=== PATIENT | male | born 1940 | race Caucasian/White ===

== ENCOUNTER → 2021-03-09 | Outpatient (CLI) | payer MEDICARE ==
--- NOTE | 2021-03-09 12:17 | CT ---
EXAMINATION TYPE: CT abdomen pelvis wo con DATE OF EXAM: 03/09/2021 COMPARISON: None HISTORY: 80-year-old male R31.0, episodes of gross hematuria CT DLP: 437.1 mGycm. Automated exposure control for dose reduction was used. TECHNIQUE: Contiguous axial scanning of the abdomen and pelvis without IV contrast. Coronal and sagit nini reconstructions performed. FINDINGS: Heart normal size without pericardial effusion. Ectatic lower descending thoracic aorta 2.9 cm with m ild atherosclerotic calcifications. Lung bases clear without pleural effusion. Noncontrast appearance of the liver, gallbladder, adrenal glands, spleen, and atrophic pancreas show no gross abnormality. Moderate atherosclerotic calcifications abdominal aorta and common iliac arteries without aneurysm. Round hypodense lesions involving the right kidney, 2.8 cm upper pole, 5.2 cm posterior mid pole, and likely lower pole parapelvic measuring 4.3 cm. Subtle 1.8 x 0.7 cm cortical hypodensity lateral mid pole with some associated calcification could re present a hemorrhagic cyst. Also, 1.7 cm Contour lobulation lateral mid to lower pole, axial image 43. No hydronephrosis. Left kidney surgically absent. No abnormal soft tissue within the left nephrectomy bed. No dilated small bowel, free fluid, or free air. A few scattered borderline sized mesenteric lymph nodes measuring up to 7 mm, for example, axial imag e 53. Normal appendix. Mild to moderate stool burden. No pericolonic inflammatory change. Patulous left inguinal canal. Bladder partially distended. Prostate gland enlargement 5.6 cm wide. There is some eccentric soft tissue impressing into the left side of the bladder base measuring 3.3 cm. Multiple pelvic phlebolith. No abnormal fluid collection i n the pelvis or pelvic lymphadenopathy. Bones: Mild degenerative change at the hips. Degenerative bony bridging right SI joint. Moderate to advanced degenerative disc disease L3-S1 levels with hypertrophic facet arthropathy. IMPRESSION: 1. Prostatomegaly (5.6 cm wide) but with some eccentric soft tissue measuring 3.3 cm impressing into the left side of the bladder base. Findings may reflect BPH. Correlate with PSA values and urine cyt ology to exclude the possibility of prostate cancer or a urothelial lesion. 2. Round low density lesions within the right kidney measuring up to 5.2 cm speculated represent cys ts. 3 such lesions are present. A benign cystic etiology can be confirmed with renal ultrasound. No h ydronephrosis. 3. Status post left nephrectomy.
== END | disposition home or self-care (01) ==
LOC: RADCTMAIN 10:41
PROVIDERS: ATTEND Urology
DX: N28.89 Other specified disorders of kidney and ureter (principal); N40.0 Benign prostatic hyperplasia without lower urinary tract symptoms; Z90.5 Acquired absence of kidney
CPT/HCPCS: 74176

== ENCOUNTER 2021-04-02 22:44 | Emergency (ER) | payer MEDICARE ==
[2021-04-02 23:25] VITALS: RESP 22
[2021-04-03 00:01] LABS: Appearance,Urine Cloudy (Clear); Bacteria,Urine Rare /hpf; Bilirubin,Urine Negative (Negative); Blood,Urine Large (Negative); Color,Urine Yellow; Glucose,Urine (UA) Negative (Negative); Hyaline Casts,Urine 1 /lpf (0-2); Ketones,Urine Negative (Negative); Leukocyte Esterase,Urine Moderate (Negative); Mucus,Urine Rare /hpf; Nitrite,Urine Negative (Negative); PH, Urine 5.5 (5.0-8.0); Protein,Urine 2+ (Negative); RBC,Urine >182 /hpf (0-5); Specific Gravity,Urine 1.014 (1.001-1.035); Urobilinogen,Urine <2.0 mg/dL (<2.0); WBC,Urine 21 /hpf (0-5)
--- NOTE | 2021-04-03 00:37 | ED ---
Male Urogenital HPI - General Chief complaint: Urogenital Stated complaint: Post-op catheter issues Time Seen by Provider: 04/02/21 23:29 Source: patient Mode of arrival: ambulatory Limitations: no limitations - History of Present Illness Initial comments: 80-year-old male patient presents to the emergency department for evaluation of urinary retention. Patient had tumors removed from his bladder on Friday. Had indwelling Salinas catheter which his urologist removed this morning. Patient states he was urinating throughout the day but the amount was becoming less and lasts until he was unable to urinate at all. Patient states he is now having significant discomfort to the suprapubic region. He is unable to urinate at all. States he did notice some hematuria today which has been present since the procedure. He denies use of blood thinning medications. Denies dizziness or weakness. Denies any fever or chills. States he had been constipated but did have 2 good bowel movements today. - Related Data Allergies Allergy/AdvReac Type Severity Reaction Status Date / Time No Known Allergies Allergy Verified 04/02/21 23:21 Review of Systems ROS Statement: Those systems with pertinent positive or pertinent negative responses have been documented in the HPI. ROS Other: All systems not noted in ROS Statement are negative. Past Medical History Past Medical History: Diabetes Mellitus History of Any Multi-Drug Resistant Organisms: None Reported Past Surgical History: No Surgical Hx Reported Additional Past Surgical History / Comment(s): tumors removed from bladder Past Psychological History: Anxiety Smoking Status: Current every day smoker Past Alcohol Use History: None Reported Past Drug Use History: None Reported General Exam Limitations: no limitations General appearance: alert, in no apparent distress, other (This is a well- developed, well-nourished adult male in no acute distress.) ENT exam: Present: normal exam, normal oropharynx, mucous membranes moist Respiratory exam: Present: normal lung sounds bilaterally. Absent: respiratory distress, wheezes, rales, rhonchi, stridor Cardiovascular Exam: Present: regular rate, normal rhythm, normal heart sounds. Absent: systolic murmur, diastolic murmur, rubs, gallop, clicks GI/Abdominal exam: Present: soft, tenderness (suprapubic), normal bowel sounds. Absent: distended, guarding, rebound, rigid Neurological exam: Present: alert, oriented X3, CN II-XII intact Psychiatric exam: Present: normal affect, normal mood Skin exam: Present: warm, dry, intact, normal color. Absent: rash Course Vital Signs 04/02/21 04/03/21 04/03/21 23:22 00:25 00:55 Temperature 98.2 F 98 F 98.3 F Pulse Rate 77 83 87 Respiratory Rate Blood Pressure 186/104 147/79 147/79 O2 Sat by Pulse 98 97 97 Oximetry Medical Decision Making - Medical Decision Making 80-year-old male patient presented for urinary retention after having Salinas catheter removed this morning. Physical examination did reveal suprapubic tenderness. Remainder is unremarkable. Salinas catheter was inserted by nursing staff. She did have 400 mL of clear red urine. Patient had immediate relief of discomfort. Abdomen within soft and nontender. There are no blood clots pass into the Salinas bag. Urinalysis did show presence of blood, no obvious infection. This a be sent for culture. He'll be discharged with the Salinas in place to follow-up with Dr. Morales as soon as possible. He is instructed to call in the morning for instructions. He does have an appointment on the for results of his biopsy. Return parameters are discussed in detail. He verbalizes understanding and is discharged in stable condition. My attending is Dr. Brooks. - Lab Data Lab Results 04/02/21 Range/Units 23:43 Urine Color Yellow Urine Appearance Cloudy (Clear) Urine pH 5.5 (5.0-8.0) Ur Specific [place] 1.014 (1.001-1.035) Urine Protein 2+ H (Negative) Urine Glucose (UA) Negative (Negative) Urine Ketones Negative (Negative) Urine Blood Large H (Negative) Urine Nitrite Negative (Negative) Urine Bilirubin Negative (Negative) Urine Urobilinogen <2.0 (<2.0) mg/dL Ur Leukocyte Esterase Moderate H (Negative) Urine RBC >182 H (0-5) /hpf Urine WBC 21 H (0-5) /hpf Urine Bacteria Rare H (None) /hpf Hyaline Casts 1 (0-2) /lpf Urine Mucus Rare H (None) /hpf Disposition Clinical Impression: Urinary retention Disposition: HOME SELF-CARE Condition: Good Instructions (If sedation given, give patient instructions): Urinary Retention in Men (ED), Salinas Catheter Placement and Care (ED) Additional Instructions: Increase fluids. Follow-up with Dr. Morales as soon as possible. Return to the emergency department for any new, worsening, or concerning symptoms. Is patient prescribed a controlled substance at d/c from ED?: No Referrals: Mikhail Carter MD [Primary Care Provider] - 1-2 days Time of Disposition: 00:37
[2021-04-03 01:43] VITALS: BP 147/79; PULSE 87; TEMP 98.3
== END 2021-04-03 00:56 | disposition home or self-care (01) ==
LOC: EC 22:44
DX: R33.9 Retention of urine, unspecified (principal); E11.9 Type 2 diabetes mellitus without complications; F17.200 Nicotine dependence, unspecified, uncomplicated
CPT/HCPCS: 81001; 87086

== ENCOUNTER 2021-06-13 12:52 | Inpatient (IN) | payer MEDICARE ==
[2021-06-13 14:24] LABS: Basophils % (A) 1 %; Eosinophils # (A) 0.1 k/uL (0-0.7); Eosinophils % (A) 2 %; HCT 44.6 % (39.0-53.0); HGB 14.8 gm/dL (13.0-17.5); Lymphocytes # (A) 1.3 k/uL (1.0-4.8); Lymphocytes % (A) 21 %; MCH 31.8 pg (25.0-35.0); MCHC 33.1 g/dL (31.0-37.0); MCV 96.2 fL (80.0-100.0); Mean Platelet Volume 7.1; Monocytes # (A) 0.2 k/uL (0-1.0); Monocytes % (A) 4 %; Neutrophils # (A) 4.4 k/uL (1.3-7.7); Neutrophils % (A) 72 %; Platelet Count 267 k/uL (150-450); RBC 4.64 m/uL (4.30-5.90); RDW 12.8 % (11.5-15.5); WBC 6.1 k/uL (3.8-10.6)
[2021-06-13 14:34] LABS: Albumin 4.8 g/dL (3.5-5.0); Calcium 9.9 mg/dL (8.4-10.2); Total Protein 8.3 g/dL (6.3-8.2)
[2021-06-13] MEDS ORDERED: SODIUM BICARB 8.4% 50 ML SYR (1 MEQ/ML) IV ONE (14:49)
[2021-06-13] MEDS ORDERED: DEXTROSE 50% SYRINGE 50 ML IVP ONE (14:49)
[2021-06-13] MEDS ORDERED: SODIUM CHLORIDE 0.9% 1,000 ML IV STA (14:49)
[2021-06-13] MEDS ORDERED: ALBUTEROL NEB (CONC) 2.5 MG/0.5 ML INHALATION ONE (14:49)
[2021-06-13] MEDS ORDERED: INSULIN REGULAR 100 UNIT/ML VIAL (IV) IV ONE (14:49)
[2021-06-13] MEDS ORDERED: CALCIUM GLUCONATE IN NACL 1 GM in SALINE 1 100ML.BAG IVPB ONE (15:00)
--- NOTE | 2021-06-13 15:12 | ED ---
General Adult HPI - General Chief complaint: Recheck/Abnormal Lab/Rx Stated complaint: abn labs Time Seen by Provider: 06/13/21 14:49 Source: patient, RN notes reviewed Mode of arrival: ambulatory Limitations: no limitations - History of Present Illness Initial comments: Patient is a pleasant 80-year-old male presenting to the emergency department with concerns for high potassium level. Patient had blood work done yesterday. Patient received a call this morning at 11 stating that potassium level was high. Patient does not have history of similar symptoms. Superior patient does have bladder cancer. Patient otherwise feels fine. No palpitations. No muscle problems. - Related Data Allergies Allergy/AdvReac Type Severity Reaction Status Date / Time bee venom protein (honey bee) Allergy Anaphylaxis Verified 06/13/21 13:15 Review of Systems ROS Statement: Those systems with pertinent positive or pertinent negative responses have been documented in the HPI. ROS Other: All systems not noted in ROS Statement are negative. Constitutional: Denies: fever Eyes: Denies: eye pain ENT: Denies: ear pain Respiratory: Denies: cough Cardiovascular: Denies: chest pain Endocrine: Denies: fatigue Gastrointestinal: Denies: abdominal pain Genitourinary: Reports: hematuria (Occasional) Musculoskeletal: Denies: back pain Skin: Denies: rash Neurological: Denies: weakness Past Medical History Past Medical History: Diabetes Mellitus Additional Past Medical History / Comment(s): stress test done one month ago History of Any Multi-Drug Resistant Organisms: None Reported Past Surgical History: No Surgical Hx Reported Additional Past Surgical History / Comment(s): tumors removed from bladder Past Psychological History: Anxiety Smoking Status: Former smoker Past Alcohol Use History: None Reported Past Drug Use History: None Reported General Exam Limitations: no limitations General appearance: alert, in no apparent distress Head exam: Present: normocephalic Eye exam: Present: normal appearance Neck exam: Present: normal inspection Respiratory exam: Present: normal lung sounds bilaterally Cardiovascular Exam: Present: regular rate, normal rhythm GI/Abdominal exam: Present: soft. Absent: tenderness Extremities exam: Present: normal inspection. Absent: pedal edema, calf ten derness Neurological exam: Present: alert Psychiatric exam: Present: normal affect, normal mood Skin exam: Present: normal color Course Vital Signs 06/13/21 13:07 Temperature 98 F Pulse Rate 71 Respiratory 18 Rate Blood Pressure 152/87 O2 Sat by Pulse 98 Oximetry EKG Findings - EKG Comments: EKG Findings:: Sinus rhythm with rate of 68. RI 167. QRS 88. QT 355. QTC 372. Left axis. Poor R-wave progression. Inferior Q waves. No acute ST change. Medical Decision Making - Medical Decision Making Patient updated and aware plan. Case discussed with Dr. Hardy who will admit his patient with consult with nephrology and oncology. - Lab Data Result diagrams: 06/13/21 13:21 06/13/21 13:21 Lab Results 06/13/21 06/13/21 06/13/21 Range/Units 13:21 13:21 13:21 WBC 6.1 (3.8-10.6) k/uL RBC 4.64 (4.30-5.90) m/uL Hgb 14.8 (13.0-17.5) gm/dL Hct 44.6 (39.0-53.0) % MCV 96.2 (80.0-100.0) fL MCH 31.8 (25.0-35.0) pg MCHC 33.1 (31.0-37.0) g/dL RDW 12.8 (11.5-15.5) % Plt Count 267 (150-450) k/uL MPV 7.1 Neutrophils % 72 % Lymphocytes % 21 % Monocytes % 4 % Eosinophils % 2 % Basophils % 1 % Neutrophils # 4.4 (1.3-7.7) k/uL Lymphocytes # 1.3 (1.0-4.8) k/uL Monocytes # 0.2 (0-1.0) k/uL Eosinophils # 0.1 (0-0.7) k/uL Basophils # 0.0 (0-0.2) k/uL Sodium 134 L (137-145) mmol/L Potassium 7.0 H* (3.5-5.1) mmol/L Chloride 103 (98-107) mmol/L Carbon Dioxide 22 (22-30) mmol/L Anion Gap 9 mmol/L BUN 47 H (9-20) mg/dL Creatinine 2.79 H (0.66-1.25) mg/dL Est GFR (CKD-EPI)AfAm 24 (>60 ml/min/1.73 sqM) Est GFR (CKD-EPI)NonAf 21 (>60 ml/min/1.73 sqM) Glucose 137 H (74-99) mg/dL Calcium 9.9 (8.4-10.2) mg/dL Total Bilirubin 1.0 (0.2-1.3) mg/dL AST 29 (17-59) U/L ALT 20 (4-49) U/L Alkaline Phosphatase 66 (38-126) U/L Troponin I <0.012 (0.000-0.034) ng/mL Total Protein 8.3 H (6.3-8.2) g/dL Albumin 4.8 (3.5-5.0) g/dL - Radiology Data Radiology results: image reviewed (No acute process) Critical Care Time Critical Care Time: Yes Total Critical Care Time: 31 Disposition Clinical Impression: Hyperkalemia Disposition: ADMITTED IP TO THIS HOSP Is patient prescribed a controlled substance at d/c from ED?: No Referrals: Mikhail Carter MD [Primary Care Provider] - 1-2 days Decision Time: 15:35
[2021-06-13] MEDS: SODIUM POLYSTYRENE SULFONATE 15 GM/60 ML BOTTLE PO SCH (15:22)
--- NOTE | 2021-06-13 15:24 | XR ---
EXAMINATION TYPE: XR chest 1V portable DATE OF EXAM: 06/13/2021 COMPARISON: Chest x-ray May 01, 2012 HISTORY: Chest pain. TECHNIQUE: Single frontal view of the chest is obtained. FINDINGS: There is no suspicious focal air space opacity, pleural effusion, or pneumothorax seen. T he cardiac silhouette size remains within normal limits. The osseous structures are intact. Overlyi ng EKG leads current study incidentally noted. IMPRESSION: No acute process. No significant change from prior.
[2021-06-13] MEDS ORDERED: NALOXONE 0.4 MG/ML 1 ML VIAL IV PRN (15:35)
[2021-06-13] MEDS ORDERED: DEXTROSE 50% SYRINGE 50 ML IVP STA (16:30)
[2021-06-13 16:32] LABS: Glucose,Whole Blood 47 mg/dL (75-99)
[2021-06-13 16:32] LABS: Glucose,Whole Blood 46 mg/dL (75-99)
[2021-06-13 17:05] LABS: Glucose,Whole Blood 129 mg/dL (75-99)
[2021-06-13 22:02] LABS: Calcium 9.3 mg/dL (8.4-10.2); Potassium 5.1 mmol/L (3.5-5.1)
[2021-06-14] MEDS: SODIUM POLYSTYRENE SULFONATE 15 GM/60 ML BOTTLE PO SCH ×3 (04:10→12:58)
[2021-06-14 06:00] LABS: Glucose,Whole Blood 116 mg/dL (75-99)
[2021-06-14 10:44] VITALS: BMI 27.6
[2021-06-14 11:35] LABS: Appearance,Urine Clear (Clear); Bilirubin,Urine Negative (Negative); Blood,Urine Trace (Negative); Color,Urine Light Yellow; Glucose,Urine (UA) Negative (Negative); Hyaline Casts,Urine 1 /lpf (0-2); Ketones,Urine Negative (Negative); Leukocyte Esterase,Urine Moderate (Negative); Mucus,Urine Rare /hpf; Nitrite,Urine Negative (Negative); PH, Urine 6.5 (5.0-8.0); Protein,Urine Trace (Negative); RBC,Urine 9 /hpf (0-5); Specific Gravity,Urine 1.011 (1.001-1.035); Urobilinogen,Urine <2.0 mg/dL (<2.0); WBC,Urine 39 /hpf (0-5)
[2021-06-14 12:06] LABS: Glucose,Whole Blood 100 mg/dL (75-99)
--- NOTE | 2021-06-14 12:30 | P.NPCON ---
History of Present Illness - Reason for Consult acute renal failure - History of Present Illness Patient is a 80-year-old male with the history of type 2 diabetes, bladder cancer status post surgery in March as well as April by Dr. Morales. Patient was admitted to the hospital due to high potassium levels noted on blood work done as outpatient at primary care physician's office. Serum potassium was 7 at the time of admission. This has been treated and serum potassium is down to 5.1 today. Patient's recent bladder surgery was last month. He did state that he had no major difficulty in asking urine. There is no history of use of NSAIDs Patient was noted to have unilateral kidney on the right side with absent left kidney on a CAT scan done in February. There is no prior history of nephrectomy and patient was not aware that he had only one kidney No history of hypotension Patient admitted to increased intake of potatoes due to sore mouth from gum disease. No active GI bleed per history. Blood sugar was not elevated No CHERIE inhibitor's or angiotensin receptor blockers on board. Review of Systems As per HPI, other systems negative Past Medical History Past Medical History: Cancer, Diabetes Mellitus Additional Past Medical History / Comment(s): stress test done one month ago, bladder cancer diagnosed 02/2021 History of Any Multi-Drug Resistant Organisms: None Reported Past Surgical History: No Surgical Hx Reported Additional Past Surgical History / Comment(s): tumors removed from bladder Past Psychological History: Anxiety Smoking Status: Former smoker Past Alcohol Use History: None Reported Past Drug Use History: None Reported Medications and Allergies Home Medications Medication Instructions Recorded Confirmed Type ALPRAZolam [Xanax] 0.5 mg PO BID PRN 06/13/21 06/13/21 History Tamsulosin [Flomax] 0.4 mg PO DAILY 06/13/21 06/13/21 History glipiZIDE [Glucotrol] 5 mg PO DAILY 06/13/21 06/13/21 History Allergies Allergy/AdvReac Type Severity Reaction Status Date / Time bee venom protein (honey bee) Allergy Anaphylaxis Verified 06/13/21 16:03 Physical Exam Vitals: Vital Signs Temp Pulse Pulse Resp BP BP Pulse Ox 06/14/21 11:00 59 L 16 152/83 97 06/14/21 08:10 98.2 F 68 16 161/82 98 06/14/21 06:03 153/74 06/14/21 05:10 98.1 F 63 16 178/84 97 06/14/21 03:24 62 18 166/88 97 06/13/21 22:00 98.2 F 62 14 168/129 95 06/13/21 18:59 78 18 125/89 98 06/13/21 18:00 75 146/103 95 06/13/21 17:00 183/90 87 L 06/13/21 16:20 70 06/13/21 16:00 63 142/106 95 06/13/21 15:56 64 06/13/21 15:11 67 06/13/21 13:07 98 F 71 18 152/87 98 Intake and Output 06/13/21 06/14/21 06/14/21 22:59 06:59 14:59 Intake Total 118 Output Total 200 Balance -82 Intake: Oral 118 Output: Urine 100 Post Void Residual 100 Other: # Voids 1 Weight 84.822 kg 84.822 kg Patient is awake, comfortable, not in any acute distress Examination of the heart S1 and S2 Examination lungs bilateral breath sounds are heard Abdomen is soft nontender Examination lower extremities shows no evidence of 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 Acute kidney injury, rule out urine retention. We do not have any recent labs available for comparison of renal function. However creatinine was 1.3 in 2013. Check urine analysis, check post void bladder scan. No nephrotoxic agents on board 2. Hyperkalemia associated with acute kidney injury and and possible urine retention. Status post treatment 3. Recent diagnosis of bladder cancer status post surgery last month. Patient follows with Dr. Morales 4. Chronic kidney disease, possibly stage IV, baseline renal function not available. Patient has solitary kidney. Noted to have absent left kidney on the CAT scan done in February. No history of surgery 5. Type 2 diabetes Plan: Check bladder scan and rule out urine retention Check UA Check ultrasound of the kidneys Low potassium diet Avoid NSAIDs Patient will need follow-up for CK D as outpatient
[2021-06-14] MEDS: glipiZIDE 5 MG TAB PO SCH (13:04)
[2021-06-14] MEDS: ALPRAZolam 0.5 MG TAB PO PRN ×2 (13:04→20:00)
[2021-06-14] MEDS: TAMSULOSIN 0.4 MG CAP.ER.24H PO SCH (13:04)
[2021-06-14] MEDS: SODIUM CHLORIDE 0.9% 1,000 ML IV SCH (13:05)
--- NOTE | 2021-06-14 14:31 | P.CONS ---
History of Present Illness - Reason for Consult Consult date: 06/14/21 Hx: Bladder Cancer Requesting physician: Tatum Hardy - History of Present Illness Mr. Shipman is a pleasant male patient who recently was diagnosed with Bladder cancer, undergoing procedure with Dr. Morales x2 per patient local without need of further intervention. He has been admitted for Acute renal insufficiency and hyperkalemia, nephrology following. Because of his history of bladder cancer we have been asked to further evaluate Review of Systems All systems: negative Constitutional: Reports as per HPI Past Medical History Past Medical History: Cancer, Diabetes Mellitus Additional Past Medical History / Comment(s): stress test done one month ago, bladder cancer diagnosed 02/2021 History of Any Multi-Drug Resistant Organisms: None Reported Past Surgical History: No Surgical Hx Reported Additional Past Surgical History / Comment(s): tumors removed from bladder Past Psychological History: Anxiety Smoking Status: Former smoker Past Alcohol Use History: None Reported Past Drug Use History: None Reported Medications and Allergies Home Medications Medication Instructions Recorded Confirmed Type ALPRAZolam [Xanax] 0.5 mg PO BID PRN 06/13/21 06/13/21 History Tamsulosin [Flomax] 0.4 mg PO DAILY 06/13/21 06/13/21 History glipiZIDE [Glucotrol] 5 mg PO DAILY 06/13/21 06/13/21 History Allergies Allergy/AdvReac Type Severity Reaction Status Date / Time bee venom protein (honey bee) Allergy Anaphylaxis Verified 06/13/21 16:03 Physical Exam Vitals: Vital Signs Temp Pulse Pulse Resp BP BP Pulse Ox 06/14/21 11:00 59 L 16 152/83 97 06/14/21 08:10 98.2 F 68 16 161/82 98 06/14/21 06:03 153/74 06/14/21 05:10 98.1 F 63 16 178/84 97 06/14/21 03:24 62 18 166/88 97 06/13/21 22:00 98.2 F 62 14 168/129 95 06/13/21 18:59 78 18 125/89 98 06/13/21 18:00 75 146/103 95 06/13/21 17:00 183/90 87 L 06/13/21 16:20 70 06/13/21 16:00 63 142/106 95 06/13/21 15:56 64 06/13/21 15:11 67 06/13/21 13:07 98 F 71 18 152/87 98 Intake and Output 06/13/21 06/14/21 06/14/21 22:59 06:59 14:59 Intake Total 118 Balance 118 Intake: Oral 118 Other: # Voids 1 Weight 84.822 kg 84.822 kg - Constitutional General appearance: cooperative - EENT Eyes: edentulous ENT: NA/AT - Neck Neck: normal ROM - Respiratory Respiratory: bilateral: dullness - Cardiovascular Rhythm: regular - Gastrointestinal General gastrointestinal: soft - Integumentary Integumentary: pale - Neurologic Neurologic: CNII-XII intact - Musculoskeletal Musculoskeletal: strength equal bilaterally - Psychiatric Psychiatric: A&O x's 3, appropriate affect, intact judgment & insight Results CBC & Chem 7: 06/13/21 13:21 06/14/21 07:32 Labs: Abnormal Lab Results - Last 24 Hours (Table) 06/13/21 06/13/21 06/13/21 Range/Units 13:21 16:29 16:30 Sodium 134 L (137-145) mmol/L Potassium 7.0 H* (3.5-5.1) mmol/L Carbon Dioxide (22-30) mmol/L BUN 47 H (9-20) mg/dL Creatinine 2.79 H (0.66-1.25) mg/dL Glucose 137 H (74-99) mg/dL POC Glucose (mg/dL) 46 L 47 L (75-99) mg/dL Total Protein 8.3 H (6.3-8.2) g/dL 06/13/21 06/13/21 06/14/21 Range/Units 17:04 21:30 05:59 Sodium 133 L (137-145) mmol/L Potassium (3.5-5.1) mmol/L Carbon Dioxide 18 L (22-30) mmol/L BUN 46 H (9-20) mg/dL Creatinine 2.42 H (0.66-1.25) mg/dL Glucose 128 H (74-99) mg/dL POC Glucose (mg/dL) 129 H 116 H (75-99) mg/dL Total Protein (6.3-8.2) g/dL 06/14/21 Range/Units 07:32 Sodium (137-145) mmol/L Potassium (3.5-5.1) mmol/L Carbon Dioxide (22-30) mmol/L BUN 44 H (9-20) mg/dL Creatinine 2.31 H (0.66-1.25) mg/dL Glucose 108 H (74-99) mg/dL POC Glucose (mg/dL) (75-99) mg/dL Total Protein (6.3-8.2) g/dL Assessment and Plan (1) [id number] kidney injury Narrative/Plan: Patient born with unilateral kidney and appears to have always had a some degree of kidney disease, stage unknown CTs without contrast Nephrology following Current Visit: Yes Status: Acute Code(s): N17.9 - ACUTE KIDNEY FAILURE, UNSPECIFIED; N18.9 - CHRONIC KIDNEY DISEASE, UNSPECIFIED SNOMED Code(s): 863597734 (2) Bladder cancer Narrative/Plan: Patient has been following with urology in relation to his bladder cancer, he states he is due for CT restaging. - Dr. Morales consulted regarding bladder cancer Current Visit: Yes Status: Acute Code(s): C67.9 - MALIGNANT NEOPLASM OF BLADDER, UNSPECIFIED SNOMED Code(s): 032798607
--- NOTE | 2021-06-14 14:43 | US ---
EXAMINATION TYPE: US kidneys/renal and bladder DATE OF EXAM: 06/14/2021 COMPARISON: CT dated 03/09/2021 CLINICAL HISTORY: rf. RF per order. Prior CT shows absent left kidney. EXAM MEASUREMENTS: Right Kidney: 13.9 x 7.0 x 6.1 cm Left Kidney: Appears absent. Right Kidney: Appears enlarged. -Anechoic area seen medially at mid pole:4.6 x 3.8 x 4.7 cm. -Hypoechoic area seen laterally at upper: 5.9 x 3.5 x 3.9 cm. -Anechoic area seen upper pole: 2.5 x 3.1 x 2.8 cm. Left Kidney: Absent. Bladder: Appears anechoic. Prostate is enlarged and causes inferior impression on the urinary bladder . Bladder wall thickening could be due to chronic bladder outlet obstruction, cystitis, is indetermin ate Bilateral Jets seen: Right jet seen IMPRESSION: Simple cysts associated with the right kidney as noted on CT, additional findings above
[2021-06-14] MEDS: IOPAMIDOL CONTRAST (ORAL USE) VIAL PO PRN ×2 (15:08→16:00)
[2021-06-14 17:01] LABS: Glucose,Whole Blood 137 mg/dL (75-99)
--- NOTE | 2021-06-14 17:10 | CT ---
EXAMINATION TYPE: CT ChestAbdPelvis wo con CT DLP: 745.6 mGycm, Automated exposure control for dose reduction was used. DATE OF EXAM: 06/14/2021 4:48 PM COMPARISON: CT abdomen pelvis 03/09/2021. CLINICAL INDICATION:Male, 80 years old with history of Restaging, Bladder cancer. Technique: Multiple axial images of the chest, abdomen, and pelvis were obtained following without IV contrast. Oral contrast was used. Two-dimensional coronal and sagittal reconstructions were obtained . Findings: CHEST: LUNGS/ PLEURA: No evidence of focal consolidation, pneumothorax or pleural effusion. There is reticul ation/scarring in the posterior inferior lateral aspect of the right upper lobe. Additionally, likely intrafissural lymph node noted within the right minor fissure and left major fissure. AIRWAY: Patent and unremarkable.. HEART: Size within normal limits. Moderate to severe coronary artery atherosclerosis. MEDIASTINUM: No gross evidence of adenopathy. VASCULATURE: No aortic aneurysm. Atherosclerosis of the arterial vasculature. MUSCULOSKELETAL: No acute osseous abnormalities. Left serratus anterior intramuscular lipoma measurin g up to 16 mm. Multilevel disc degeneration changes. SOFT TISSUES/LYMPH NODES: Unremarkable. LOWER NECK: No significant findings. ABDOMEN: ABDOMEN LIVER: Unremarkable GALLBLADDER AND BILE DUCTS: Unremarkable. PANCREAS: Unremarkable. SPLEEN: Unremarkable. ADRENAL GLANDS: The left adrenal gland is not definitively visualized and may be surgically absent. KIDNEYS AND URETERS: The left kidney is not visualized and may be surgically absent. The right kidney does not demonstrate evidence of hydronephrosis or obstructive uropathy. Calculus seen is felt to be vascular in the renal sinus. Hyperdensity focus in the renal cortex is unchanged from prior measurin g 9 mm. Similar appearing right renal cyst measuring up to 50 mm in the cortex and another within the renal sinus measuring up to 39 mm. Unchanged lobulation to the contour of the right kidney. PELVIS BLADDER: Circumferentially thickened wall which may be due to under distention measuring up to 8 mm. No convincing mass however evaluation is limited given lack of excreted IV contrast. REPRODUCTIVE: Prostate is enlarged in size measuring 5.4 cm in transverse dimension and similar to pr ior. There is median lobe hypertrophy changes. ABDOMEN & PELVIS STOMACH AND BOWEL: Scattered diverticula are noted throughout the colon. No evidence of bowel obstru ction. PERITONEUM: No evidence of pneumoperitoneum or free fluid. VASCULATURE: No evidence of aortic aneurysm. Moderate to severe atherosclerosis of the arterial vascu lature. MUSCULOSKELETAL: No acute osseous abnormalities, similar degenerative changes at the L4-L5 adjoining endplates. Some gas posterior to L4 is similar to prior and likely on a degenerative basis. LYMPH NODES: No gross evidence for lymphadenopathy. No lymph nodes are greater than 1 cm in short axi s. SOFT TISSUE/ABDOMINAL WALL: Fatty changes in the inguinal canals bilaterally. IMPRESSION: 1. No evidence for metastatic disease within the chest, abdomen or pelvis. 2. Bladder wall circumferential thickening which is likely due to underdistention, correlate with uri nalysis for cystitis. 3. Prostatomegaly with median lobe hypertrophy changes. Correlate with serum PSA. 4. Flattened appearance of the left adrenal gland and nonvisualization of the left kidney. No other f indings of prior nephrectomy suggests this could be congenital. Correlate with surgical history. 5. Colonic diverticulosis.
--- NOTE | 2021-06-14 17:44 | P.HPIM ---
History of Present Illness H&P Date: 06/14/21 Power Shipman, is a 80 year old male who presented to [facility] emergency room with a chief complaint of severe hyperkalemia, patient had out patient labs drawn which revealed elevated potassium at 6.3 he was told to go to emergency room, repeat labs in the emergency room revealed elevated potassium at 7.0 patient was treated in the emergency room and admitted to medical floor for further evaluation and treatment. Patient also has known history of bladder cancer, he is having severe anxiety in that regard and is afraid that the cancer is spreading all over his body, he is requesting evaluation in that regard. He was evaluated in the emergency room vital examination on presentation revealed a temperature of 98 pulse 71 respiration 18 blood pressure 152/87 pulse ox 98% on room air Laboratory data revealed a white blood count of 6.1 hemoglobin 14.8 platelet count 267 sodium 134 potassium 7.0 chloride 103 CO2 22 BUN 47 creatinine 2.7 Testing in the emergency room revealed EKG in the emergency room revealed sinus rhythm with left axis deviation chest x-ray did not reveal any significant abnormality Patient was admitted to medical floor for further evaluation and treatment. Past Medical History Past Medical History: Cancer, Diabetes Mellitus Additional Past Medical History / Comment(s): stress test done one month ago, bladder cancer diagnosed 02/2021 History of Any Multi-Drug Resistant Organisms: None Reported Past Surgical History: No Surgical Hx Reported Additional Past Surgical History / Comment(s): tumors removed from bladder Past Psychological History: Anxiety Smoking Status: Former smoker Past Alcohol Use History: None Reported Past Drug Use History: None Reported Medications and Allergies Home Medications Medication Instructions Recorded Confirmed Type ALPRAZolam [Xanax] 0.5 mg PO BID PRN 06/13/21 06/13/21 History Tamsulosin [Flomax] 0.4 mg PO DAILY 06/13/21 06/13/21 History glipiZIDE [Glucotrol] 5 mg PO DAILY 06/13/21 06/13/21 History Allergies Allergy/AdvReac Type Severity Reaction Status Date / Time bee venom protein (honey bee) Allergy Anaphylaxis Verified 06/13/21 16:03 Physical Exam Vitals: Vital Signs Temp Pulse Pulse Resp BP BP Pulse Ox 06/14/21 06:03 153/74 06/14/21 05:10 98.1 F 63 16 178/84 97 06/14/21 03:24 62 18 166/88 97 06/13/21 22:00 98.2 F 62 14 168/129 95 06/13/21 18:59 78 18 125/89 98 06/13/21 18:00 75 146/103 95 06/13/21 17:00 183/90 87 L 06/13/21 16:20 70 06/13/21 16:00 63 142/106 95 06/13/21 15:56 64 06/13/21 15:11 67 06/13/21 13:07 98 F 71 18 152/87 98 Intake and Output 06/13/21 06/14/21 06/14/21 22:59 06:59 14:59 Intake Total 118 Balance 118 Intake: Oral 118 Other: Weight 84.822 kg In general patient is alert and oriented x 3 in no distress HEENT head normocephalic and atraumatic Neck is supple no JVD no goiter no lymphadenopathy no carotid bruit Chest examination is clear to auscultation no crackles no wheezing Cardiac exam reveals regular heart sounds S1 and S2 no gallops no murmurs Abdomen is soft nontender no organomegaly with normal bowel sounds Extremity exam reveals no edema no cyanosis or clubbing Neurological examination reveals no gross focal deficits Results CBC & Chem 7: 06/13/21 13:21 06/14/21 07:32 Labs: Abnormal Lab Results - Last 24 Hours (Table) 06/13/21 06/13/21 06/13/21 Range/Units 13:21 16:29 16:30 Sodium 134 L (137-145) mmol/L Potassium 7.0 H* (3.5-5.1) mmol/L Carbon Dioxide (22-30) mmol/L BUN 47 H (9-20) mg/dL Creatinine 2.79 H (0.66-1.25) mg/dL Glucose 137 H (74-99) mg/dL POC Glucose (mg/dL) 46 L 47 L (75-99) mg/dL Total Protein 8.3 H (6.3-8.2) g/dL 06/13/21 06/13/21 06/14/21 Range/Units 17:04 21:30 05:59 Sodium 133 L (137-145) mmol/L Potassium (3.5-5.1) mmol/L Carbon Dioxide 18 L (22-30) mmol/L BUN 46 H (9-20) mg/dL Creatinine 2.42 H (0.66-1.25) mg/dL Glucose 128 H (74-99) mg/dL POC Glucose (mg/dL) 129 H 116 H (75-99) mg/dL Total Protein (6.3-8.2) g/dL 06/14/21 Range/Units 07:32 Sodium (137-145) mmol/L Potassium (3.5-5.1) mmol/L Carbon Dioxide (22-30) mmol/L BUN 44 H (9-20) mg/dL Creatinine 2.31 H (0.66-1.25) mg/dL Glucose 108 H (74-99) mg/dL POC Glucose (mg/dL) (75-99) mg/dL Total Protein (6.3-8.2) g/dL Thrombosis Risk Factor Assmnt - Choose All That Apply Any of the Below Risk Factors Present?: Yes Each Risk Factor Represents 3 Points: Age 75 years or older Thrombosis Risk Factor Assessment Total Risk Factor Score: 3 Thrombosis Risk Factor Assessment Level: Moderate Risk Assessment and Plan Plan: Acute kidney injury, BUN on admission, 47 creatinine on admission 2.79 Severe hyperkalemia, potassium on admission 7.0 Underlying history of diabetes mellitus Underlying history of bladder cancer Underlying history of benign prostatic hypertrophy Underlying history of anxiety disorder Abnormal computed tomography scan of the abdomen and pelvis in February 2021 revealing round low-density lesion within the right kidney measuring 5.2 cm, possibly representing a cyst with 2 other lesions present. Status post left nephrectomy At this time patient is admitted to telemetry floor, he was started on IV fluid normal saline He received IV dextrose and insulin and calcium gluconate in the emergency room Nephrology consultation was requested Also oncology consultation was requested to rule out metastatic disease.
[2021-06-14 20:22] LABS: Glucose,Whole Blood 65 mg/dL (75-99)
[2021-06-14 20:42] LABS: Glucose,Whole Blood 106 mg/dL (75-99)
[2021-06-15] MEDS: SODIUM CHLORIDE 0.9% 1,000 ML IV SCH ×2 (04:13→17:46)
[2021-06-15 04:54] VITALS: RESP 16
[2021-06-15 06:03] LABS: Glucose,Whole Blood 107 mg/dL (75-99)
--- NOTE | 2021-06-15 08:23 | P.GSCN ---
History of Present Illness Consult date: 06/14/21 History of present illness: 80 yo male seen by Dr Morales for hematuria. 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 He has begun intravesical chemotherapy with gemcitabine.. He has had no problems with this. His next treatment his next Friday. He was admitted the hospital with an elevated potassium. His urinalysis is still inflamed post-TURBT as expected. Review of Systems All systems: negative - Constitutional Denies fever, Denies weight loss - EENT Eyes: denies blurred vision Ears, nose, mouth and throat: Denies dysphagia - Cardiovascular Denies chest pain, Denies shortness of breath - Respiratory Denies cough, Denies 7 - Gastrointestinal Reports as per HPI - Genitourinary Denies dysuria, Denies hematuria - Integumentary Denies rash, Denies unusual bruising - Neurological Denies headaches, Denies syncope - Hematologic/Lymphatic Denies easy bleeding, Denies easy bruising Past Medical History Past Medical History: Cancer, Diabetes Mellitus Additional Past Medical History / Comment(s): stress test done one month ago, bladder cancer diagnosed 02/2021 History of Any Multi-Drug Resistant Organisms: None Reported Past Surgical History: No Surgical Hx Reported Additional Past Surgical History / Comment(s): tumors removed from bladder Past Psychological History: Anxiety Smoking Status: Former smoker Past Alcohol Use History: None Reported Past Drug Use History: None Reported Medications and Allergies Home Medications Medication Instructions Recorded Confirmed Type ALPRAZolam [Xanax] 0.5 mg PO BID PRN 06/13/21 06/13/21 History Tamsulosin [Flomax] 0.4 mg PO DAILY 06/13/21 06/13/21 History glipiZIDE [Glucotrol] 5 mg PO DAILY 06/13/21 06/13/21 History Allergies Allergy/AdvReac Type Severity Reaction Status Date / Time bee venom protein (honey bee) Allergy Anaphylaxis Verified 06/13/21 16:03 Surgical - Exam Vital Signs Temp Pulse Resp BP Pulse Ox 98 F 71 18 152/87 98 06/13/21 13:07 06/13/21 13:07 06/13/21 13:07 06/13/21 13:07 06/13/21 13:07 - General well developed, well nourished, no distress - Eyes PERRL - ENT no hearing loss - Respiratory normal expansion, normal respiratory effort - Cardiovascular Rhythm: regular - Abdomen Abdomen: soft, non tender - Genitourinary normal penis with no external lesions, testicles present - Neurologic normal sensation - Musculoskeletal normal posture - Psychiatric oriented to time, oriented to person, oriented to place, speech is normal, memory intact Results - Labs 06/13/21 13:21 06/14/21 07:32 Abnormal Lab Results - Last 24 Hours (Table) 06/13/21 06/14/21 06/14/21 Range/Units 21:30 05:59 07:32 Sodium 133 L (137-145) mmol/L Carbon Dioxide 18 L (22-30) mmol/L BUN 46 H 44 H (9-20) mg/dL Creatinine 2.42 H 2.31 H (0.66-1.25) mg/dL Glucose 128 H 108 H (74-99) mg/dL POC Glucose (mg/dL) 116 H (75-99) mg/dL Urine Protein (Negative) Urine Blood (Negative) Ur Leukocyte Esterase (Negative) Urine RBC (0-5) /hpf Urine WBC (0-5) /hpf Urine Mucus (None) /hpf 06/14/21 06/14/21 06/14/21 Range/Units 11:25 11:52 16:59 Sodium (137-145) mmol/L Carbon Dioxide (22-30) mmol/L BUN (9-20) mg/dL Creatinine (0.66-1.25) mg/dL Glucose (74-99) mg/dL POC Glucose (mg/dL) 100 H 137 H (75-99) mg/dL Urine Protein Trace H (Negative) Urine Blood Trace H (Negative) Ur Leukocyte Esterase Moderate H (Negative) Urine RBC 9 H (0-5) /hpf Urine WBC 39 H (0-5) /hpf Urine Mucus Rare H (None) /hpf Microbiology - Last 24 Hours (Table) 06/14/21 11:25 Urine Culture - Preliminary Urine,Voided Diabetes panel 06/13/21 06/14/21 Range/Units 21:30 07:32 Sodium 133 L 138 (137-145) mmol/L Potassium 5.1 5.0 (3.5-5.1) mmol/L Chloride 104 105 (98-107) mmol/L Carbon Dioxide 18 L 24 (22-30) mmol/L BUN 46 H 44 H (9-20) mg/dL Creatinine 2.42 H 2.31 H (0.66-1.25) mg/dL Glucose 128 H 108 H (74-99) mg/dL Calcium 9.3 9.0 (8.4-10.2) mg/dL Calcium panel 06/13/21 06/14/21 Range/Units 21:30 07:32 Calcium 9.3 9.0 (8.4-10.2) mg/dL Pituitary panel 06/13/21 06/14/21 Range/Units 21:30 07:32 Sodium 133 L 138 (137-145) mmol/L Potassium 5.1 5.0 (3.5-5.1) mmol/L Chloride 104 105 (98-107) mmol/L Carbon Dioxide 18 L 24 (22-30) mmol/L BUN 46 H 44 H (9-20) mg/dL Creatinine 2.42 H 2.31 H (0.66-1.25) mg/dL Glucose 128 H 108 H (74-99) mg/dL Calcium 9.3 9.0 (8.4-10.2) mg/dL Adrenal panel 06/13/21 06/14/21 Range/Units 21:30 07:32 Sodium 133 L 138 (137-145) mmol/L Potassium 5.1 5.0 (3.5-5.1) mmol/L Chloride 104 105 (98-107) mmol/L Carbon Dioxide 18 L 24 (22-30) mmol/L BUN 46 H 44 H (9-20) mg/dL Creatinine 2.42 H 2.31 H (0.66-1.25) mg/dL Glucose 128 H 108 H (74-99) mg/dL Calcium 9.3 9.0 (8.4-10.2) mg/dL - Imaging CT scan - abdomen: report reviewed, image reviewed CT scan - pelvis: report reviewed, image reviewed Assessment and Plan Assessment: Impression: Hyperkalemia treated. Bladder cancer presently undergoing intravesical chemotherapy. Recommendations: Assuming the patient goes home this weekend he should keep his appointment for his treatment next Friday.
[2021-06-15 08:36] LABS: Basophils % (A) 1 %; Eosinophils # (A) 0.4 k/uL (0-0.7); Eosinophils % (A) 6 %; HCT 38.1 % (39.0-53.0); HGB 12.5 gm/dL (13.0-17.5); Lymphocytes # (A) 1.8 k/uL (1.0-4.8); Lymphocytes % (A) 29 %; MCH 32.3 pg (25.0-35.0); MCHC 32.8 g/dL (31.0-37.0); MCV 98.4 fL (80.0-100.0); Mean Platelet Volume 8.1; Monocytes # (A) 0.2 k/uL (0-1.0); Monocytes % (A) 3 %; Neutrophils # (A) 3.9 k/uL (1.3-7.7); Neutrophils % (A) 60 %; Platelet Count 210 k/uL (150-450); RBC 3.88 m/uL (4.30-5.90); RDW 12.6 % (11.5-15.5); WBC 6.4 k/uL (3.8-10.6)
[2021-06-15 08:47] LABS: Albumin 3.7 g/dL (3.5-5.0); Calcium 8.8 mg/dL (8.4-10.2); Potassium 5.4 mmol/L (3.5-5.1); Total Bilirubin 0.8 mg/dL (0.2-1.3); Total Protein 6.5 g/dL (6.3-8.2)
[2021-06-15] MEDS: glipiZIDE 5 MG TAB PO SCH (08:55)
[2021-06-15] MEDS: TAMSULOSIN 0.4 MG CAP.ER.24H PO SCH (08:55)
[2021-06-15] MEDS: ALPRAZolam 0.5 MG TAB PO PRN ×2 (09:03→18:15)
--- NOTE | 2021-06-15 10:11 | P.PN ---
Subjective Progress Note Date: 06/15/21 Power Shipman, is a 80 year old male who presented to [facility] emergency room with a chief complaint of severe hyperkalemia, patient had out patient labs drawn which revealed elevated potassium at 6.3 he was told to go to emergency room, repeat labs in the emergency room revealed elevated potassium at 7.0 patient was treated in the emergency room and admitted to medical floor for further evaluation and treatment. Patient also has known history of bladder cancer, he is having severe anxiety in that regard and is afraid that the cancer is spreading all over his body, he is requesting evaluation in that regard. He was evaluated in the emergency room vital examination on presentation revealed a temperature of 98 pulse 71 respiration 18 blood pressure 152/87 pulse ox 98% on room air Laboratory data revealed a white blood count of 6.1 hemoglobin 14.8 platelet count 267 sodium 134 potassium 7.0 chloride 103 CO2 22 BUN 47 creatinine 2.7 Testing in the emergency room revealed EKG in the emergency room revealed sinus rhythm with left axis deviation chest x-ray did not reveal any significant abnormality Patient was admitted to medical floor for further evaluation and treatment. On 06/15/2021 patient is alert and oriented 3. Patient remains on Rocephin for urinary tract infection. Creatinine 2.12, bun 39 potassium slightly increased at 5.4. Urology nephrology and oncology services are following. At this time patient denies chest pain or shortness of breath. Patient denies nausea vomiting or diarrhea. Patient denies any urinary burning or frequency Objective - Vital Signs Vital signs: Vital Signs Temp 98.3 F 06/15/21 08:00 Pulse 61 06/15/21 08:00 Resp 16 06/15/21 08:00 BP 159/75 06/15/21 08:00 Pulse Ox 96 06/15/21 08:00 Intake & Output 06/14/21 06/15/21 06/15/21 18:59 06:59 18:59 Intake Total 358 180 360 Output Total 200 400 Balance 158 -220 360 Weight 84.822 kg Intake: Oral 358 180 360 Output: Urine 100 400 Post Void Residual 100 Other: # Voids 1 1 # Bowel Movements 1 - Exam In general patient is alert and oriented x 3 in no distress HEENT head normocephalic and atraumatic Neck is supple no JVD no goiter no lymphadenopathy no carotid bruit Chest examination is clear to auscultation no crackles no wheezing Cardiac exam reveals regular heart sounds S1 and S2 no gallops no murmurs Abdomen is soft nontender no organomegaly with normal bowel sounds Extremity exam reveals no edema no cyanosis or clubbing Neurological examination reveals no gross focal deficits - Labs CBC & Chem 7: 06/15/21 08:15 06/15/21 08:15 Labs: Abnormal Lab Results - Last 24 Hours (Table) 06/14/21 06/14/21 06/14/21 Range/Units 11:25 11:52 16:59 RBC (4.30-5.90) m/uL Hgb (13.0-17.5) gm/dL Hct (39.0-53.0) % Potassium (3.5-5.1) mmol/L BUN (9-20) mg/dL Creatinine (0.66-1.25) mg/dL Glucose (74-99) mg/dL POC Glucose (mg/dL) 100 H 137 H (75-99) mg/dL Urine Protein Trace H (Negative) Urine Blood Trace H (Negative) Ur Leukocyte Esterase Moderate H (Negative) Urine RBC 9 H (0-5) /hpf Urine WBC 39 H (0-5) /hpf Urine Mucus Rare H (None) /hpf 06/14/21 06/14/21 06/15/21 Range/Units 20:20 20:40 06:02 RBC (4.30-5.90) m/uL Hgb (13.0-17.5) gm/dL Hct (39.0-53.0) % Potassium (3.5-5.1) mmol/L BUN (9-20) mg/dL Creatinine (0.66-1.25) mg/dL Glucose (74-99) mg/dL POC Glucose (mg/dL) 65 L 106 H 107 H (75-99) mg/dL Urine Protein (Negative) Urine Blood (Negative) Ur Leukocyte Esterase (Negative) Urine RBC (0-5) /hpf Urine WBC (0-5) /hpf Urine Mucus (None) /hpf 06/15/21 06/15/21 Range/Units 08:15 08:15 RBC 3.88 L (4.30-5.90) m/uL Hgb 12.5 L (13.0-17.5) gm/dL Hct 38.1 L (39.0-53.0) % Potassium 5.4 H (3.5-5.1) mmol/L BUN 39 H (9-20) mg/dL Creatinine 2.12 H (0.66-1.25) mg/dL Glucose 148 H (74-99) mg/dL POC Glucose (mg/dL) (75-99) mg/dL Urine Protein (Negative) Urine Blood (Negative) Ur Leukocyte Esterase (Negative) Urine RBC (0-5) /hpf Urine WBC (0-5) /hpf Urine Mucus (None) /hpf Microbiology - Last 24 Hours (Table) 06/14/21 11:25 Urine Culture - Preliminary Urine,Voided Assessment and Plan Plan: Acute kidney injury, BUN on admission, 47 creatinine on admission 2.79 Severe hyperkalemia, potassium on admission 7.0. Improving Underlying history of diabetes mellitus Underlying history of bladder cancer Underlying history of benign prostatic hypertrophy Underlying history of anxiety disorder Abnormal computed tomography scan of the abdomen and pelvis in February 2021 revealing round low-density lesion within the right kidney measuring 5.2 cm, possibly representing a cyst with 2 other lesions present. Status post left nephrectomy Urinary tract infection. Patient started on Rocephin urine culture ordered At this time patient is admitted to telemetry floor, he was started on IV fluid normal saline He received IV dextrose and insulin and calcium gluconate in the emergency room Nephrology, urology and oncology service is following Repeat labs ordered
--- NOTE | 2021-06-15 10:25 | P.PN ---
Subjective Progress Note Date: 06/15/21 Principal diagnosis: Hyperkalemia CT scan without evidence of metastatic disease. He will continue with treatment per urology. Objective - Vital Signs Vital signs: Vital Signs Temp 98.3 F 06/15/21 08:00 Pulse 61 06/15/21 08:00 Resp 16 06/15/21 08:00 BP 159/75 06/15/21 08:00 Pulse Ox 96 06/15/21 08:00 Intake & Output 06/14/21 06/15/21 06/15/21 18:59 06:59 18:59 Intake Total 358 180 360 Output Total 200 400 Balance 158 -220 360 Weight 84.822 kg Intake: Oral 358 180 360 Output: Urine 100 400 Post Void Residual 100 Other: # Voids 1 1 # Bowel Movements 1 - Exam - Constitutional General appearance: cooperative - EENT Eyes: edentulous ENT: NA/AT - Neck Neck: normal ROM - Respiratory Respiratory: bilateral: dullness - Cardiovascular Rhythm: regular - Gastrointestinal General gastrointestinal: soft - Integumentary Integumentary: pale - Neurologic Neurologic: CNII-XII intact - Musculoskeletal Musculoskeletal: strength equal bilaterally - Psychiatric Psychiatric: A&O x's 3, appropriate affect, intact judgment & insight - Labs CBC & Chem 7: 06/15/21 08:15 06/15/21 08:15 Labs: Abnormal Lab Results - Last 24 Hours (Table) 06/14/21 06/14/21 06/14/21 Range/Units 11:25 11:52 16:59 RBC (4.30-5.90) m/uL Hgb (13.0-17.5) gm/dL Hct (39.0-53.0) % Potassium (3.5-5.1) mmol/L BUN (9-20) mg/dL Creatinine (0.66-1.25) mg/dL Glucose (74-99) mg/dL POC Glucose (mg/dL) 100 H 137 H (75-99) mg/dL Urine Protein Trace H (Negative) Urine Blood Trace H (Negative) Ur Leukocyte Esterase Moderate H (Negative) Urine RBC 9 H (0-5) /hpf Urine WBC 39 H (0-5) /hpf Urine Mucus Rare H (None) /hpf 06/14/21 06/14/21 06/15/21 Range/Units 20:20 20:40 06:02 RBC (4.30-5.90) m/uL Hgb (13.0-17.5) gm/dL Hct (39.0-53.0) % Potassium (3.5-5.1) mmol/L BUN (9-20) mg/dL Creatinine (0.66-1.25) mg/dL Glucose (74-99) mg/dL POC Glucose (mg/dL) 65 L 106 H 107 H (75-99) mg/dL Urine Protein (Negative) Urine Blood (Negative) Ur Leukocyte Esterase (Negative) Urine RBC (0-5) /hpf Urine WBC (0-5) /hpf Urine Mucus (None) /hpf 06/15/21 06/15/21 Range/Units 08:15 08:15 RBC 3.88 L (4.30-5.90) m/uL Hgb 12.5 L (13.0-17.5) gm/dL Hct 38.1 L (39.0-53.0) % Potassium 5.4 H (3.5-5.1) mmol/L BUN 39 H (9-20) mg/dL Creatinine 2.12 H (0.66-1.25) mg/dL Glucose 148 H (74-99) mg/dL POC Glucose (mg/dL) (75-99) mg/dL Urine Protein (Negative) Urine Blood (Negative) Ur Leukocyte Esterase (Negative) Urine RBC (0-5) /hpf Urine WBC (0-5) /hpf Urine Mucus (None) /hpf Microbiology - Last 24 Hours (Table) 06/14/21 11:25 Urine Culture - Preliminary Urine,Voided Assessment and Plan (1) [id number] kidney injury Narrative/Plan: 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 - Dr. 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 He has begun intravesical chemotherapy with gemcitabine.. Resuming Gemcitabine on Friday Current Visit: Yes Status: Acute Code(s): C67.9 - MALIGNANT NEOPLASM OF BLADDER, UNSPECIFIED SNOMED Code(s): 795561645
[2021-06-15] MEDS ORDERED: SODIUM ZIRCONIUM CYCLOSILICATE 10 GM PACKET PO ONE (10:50)
[2021-06-15 11:59] LABS: Glucose,Whole Blood 74 mg/dL (75-99)
--- NOTE | 2021-06-15 14:23 | P.DS ---
Providers Date of admission: 06/13/21 15:35 Expected date of discharge: 06/15/21 Attending physician: Tatum Hardy Consults: 06/13/21 15:35 Consult Physician Routine Consulting Provider: Christopher Hartman Consult Reason/Comments: Oncological care Do you want consulting provider notified?: Yes Consult Physician Urgent Consulting Provider: Tara Cabral Consult Reason/Comments: hyperkalemia Do you want consulting provider notified?: Yes 06/14/21 14:11 Consult Physician Routine Consulting Provider: Tristan Morales Consult Reason/Comments: Patient follows for bladder ca Do you want consulting provider notified?: Yes Primary care physician: Mikhail Carter [facility] Course: Diagnosis on discharge: Acute kidney injury, BUN on admission, 47 creatinine on admission 2.79 Severe hyperkalemia, potassium on admission 7.0. Improving Underlying history of diabetes mellitus Underlying history of bladder cancer Underlying history of benign prostatic hypertrophy Underlying history of anxiety disorder Abnormal computed tomography scan of the abdomen and pelvis in February 2021 revealing round low-density lesion within the right kidney measuring 5.2 cm, possibly representing a cyst with 2 other lesions present. Status post left nephrectomy Urinary tract infection. Patient started on Rocephin urine culture ordered, he was given a course of ceftin on discharge, urine culture still pending. Hospital course: Power Shipman, is a 80 year old male who presented to [facility] emergency room with a chief complaint of severe hyperkalemia, patient had out patient labs drawn which revealed elevated potassium at 6.3 he was told to go to emergency room, repeat labs in the emergency room revealed elevated potassium at 7.0 patient was treated in the emergency room and admitted to medical floor for further evaluation and treatment. Patient also has known history of bladder cancer, he is having severe anxiety in that regard and is afraid that the cancer is spreading all over his body, he is requesting evaluation in that regard. He was evaluated in the emergency room vital examination on presentation revealed a temperature of 98 pulse 71 respiration 18 blood pressure 152/87 pulse ox 98% on room air Laboratory data revealed a white blood count of 6.1 hemoglobin 14.8 platelet count 267 sodium 134 potassium 7.0 chloride 103 CO2 22 BUN 47 creatinine 2.7 Testing in the emergency room revealed EKG in the emergency room revealed sinus rhythm with left axis deviation chest x-ray did not reveal any significant abnormality Patient was admitted to medical floor for further evaluation and treatment. On 06/15/2021 patient is alert and oriented 3. Patient remains on Rocephin for urinary tract infection. Creatinine 2.12, bun 39 potassium slightly increased at 5.4. Urology nephrology and oncology services are following. At this time patient denies chest pain or shortness of breath. Patient denies nausea vomiting or diarrhea. Patient denies any urinary burning or frequency. Patient was seen by Dr Fernandes today, he was given a dose of Lokelma and was cleared for discharge. Coreg 3.125 mg po bid was added to regimen due to elevated blood pressure. Low potassium diet explained to patient in details follow up in our office in 2-3 days. Plan - Discharge Summary New Discharge Prescriptions: New carvediloL [Coreg] 3.125 mg PO BID-W/MEALS tab Cefuroxime Axetil [Ceftin] 500 mg PO BID 7 Days #14 tab Continue ALPRAZolam [Xanax] 0.5 mg PO BID PRN PRN Reason: Anxiety Tamsulosin [Flomax] 0.4 mg PO DAILY glipiZIDE [Glucotrol] 5 mg PO DAILY Discharge Medication List ALPRAZolam [Xanax] 0.5 mg PO BID PRN 06/13/21 [History] Tamsulosin [Flomax] 0.4 mg PO DAILY 06/13/21 [History] glipiZIDE [Glucotrol] 5 mg PO DAILY 06/13/21 [History] Cefuroxime Axetil [Ceftin] 500 mg PO BID 7 Days #14 tab 06/15/21 [Rx] carvediloL [Coreg] 3.125 mg PO BID-W/MEALS tab 06/15/21 [Rx] Follow up Appointment(s)/Referral(s): Tara Cabral MD [STAFF PHYSICIAN] - 1 Week (CKD follow up) Mikhail Carter MD [Primary Care Provider] - 1-2 days Ambulatory/Diagnostic Orders: Basic Metabolic Panel [LAB.AMB] Time Frame: 3 Days, Location: None Selected Patient Instructions/Handouts: Potassium Content of Foods List (ED), Chronic Kidney Disease Diet (DC)
[2021-06-15 15:44] VITALS: BP 146/78; PULSE 62; TEMP 98.2
[2021-06-15 16:09] LABS: Glucose,Whole Blood 106 mg/dL (75-99)
--- NOTE | 2021-06-15 16:36 | P.PN ---
Subjective Pt is seen for f/u for GIAN on top of CKD and hyperkalemia. Doing much emelyn. K is 5.4 today Cr decreased to 2.1 today. No urine retention. 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 exam is intact Legs show no edema - Labs CBC & Chem 7: 06/15/21 08:15 06/15/21 08:15 Labs: Abnormal Lab Results - Last 24 Hours (Table) 06/14/21 06/14/21 06/14/21 Range/Units 16:59 20:20 20:40 RBC (4.30-5.90) m/uL Hgb (13.0-17.5) gm/dL Hct (39.0-53.0) % Potassium (3.5-5.1) mmol/L BUN (9-20) mg/dL Creatinine (0.66-1.25) mg/dL Glucose (74-99) mg/dL POC Glucose (mg/dL) 137 H 65 L 106 H (75-99) mg/dL 06/15/21 06/15/21 06/15/21 Range/Units 06:02 08:15 08:15 RBC 3.88 L (4.30-5.90) m/uL Hgb 12.5 L (13.0-17.5) gm/dL Hct 38.1 L (39.0-53.0) % Potassium 5.4 H (3.5-5.1) mmol/L BUN 39 H (9-20) mg/dL Creatinine 2.12 H (0.66-1.25) mg/dL Glucose 148 H (74-99) mg/dL POC Glucose (mg/dL) 107 H (75-99) mg/dL 06/15/21 06/15/21 Range/Units 11:56 16:07 RBC (4.30-5.90) m/uL Hgb (13.0-17.5) gm/dL Hct (39.0-53.0) % Potassium (3.5-5.1) mmol/L BUN (9-20) mg/dL Creatinine (0.66-1.25) mg/dL Glucose (74-99) mg/dL POC Glucose (mg/dL) 74 L 106 H (75-99) mg/dL Microbiology - Last 24 Hours (Table) 06/14/21 11:25 Urine Culture - Final Urine,Voided Assessment and Plan Assessment: 1. Acute kidney injury, rule out urine retention. We do not have any recent labs available for comparison of renal function. However creatinine was 1.3 in 2013.No retention. No nephrotoxic agents on board. Slightly improved 2. Hyperkalemia associated with acute kidney injury and and possibly related to gemcitabine, although hypokalemia is more common. 3. Recent diagnosis of bladder cancer status post surgery last month. Patient follows with Dr. Morales 4. Chronic kidney disease, possibly stage IV, baseline renal function not available. Patient has solitary kidney. Noted to have absent left kidney on the CAT scan done in February. No history of surgery 5. Type 2 diabetes Plan: Lokelma x 1 today Low potassium diet Pt can be discharged and f/u as op in 1 week Repeat labs as op in 3-4 days.
[2021-06-15] MEDS ORDERED: carvediloL 3.125 MG TAB PO SCH (17:30)
== END 2021-06-15 18:22 | disposition home or self-care (01) | DRG 683 ==
LOC: EC 12:52 → 3SCARD 15:35
PROVIDERS: ADMIT Internal Medicine; ATTEND Internal Medicine
DX: N17.9 Acute kidney failure, unspecified (principal); N39.0 Urinary tract infection, site not specified; E87.5 Hyperkalemia; C67.9 Malignant neoplasm of bladder, unspecified; N18.9 Chronic kidney disease, unspecified; E11.22 Type 2 diabetes mellitus with diabetic chronic kidney disease; F41.9 Anxiety disorder, unspecified; N40.0 Benign prostatic hyperplasia without lower urinary tract symptoms; Z79.84 Long term (current) use of oral hypoglycemic drugs; Z79.899 Other long term (current) drug therapy; Z87.891 Personal history of nicotine dependence; Z90.5 Acquired absence of kidney
CPT/HCPCS: 36415; 71045; 71250; 74176; 76770; 80048; 80053; 81001; 84484; 85025; 87086; 93005; 96361; 96374; 96375; 99291

== ENCOUNTER → 2021-09-06 | Outpatient (CLI) | payer MEDICARE ==
--- NOTE | 2021-09-06 16:12 | NM ---
EXAMINATION TYPE: NM bone scan whole body DATE OF EXAM: 09/06/2021 COMPARISON: NONE HISTORY: Bladder cancer Delayed whole-body scanning was performed following the injection of 22.7 mCi Tc 99m MDP. Images wer e acquired 3 hours post injection. FINDINGS: Mild uptake is at the right first metatarsophalangeal joint space, likely degenerative in nature. A punctate area of radiotracer is within the region of the right patella may be degenerative in natur e. Degenerative changes also noted at the right carpal metacarpal junction. Very subtle uptake may be within the posterior left L4 pedicle region. Consider MRI of the lumbar spi ne for additional evaluation. Suspicious focal uptake to suggest metastatic disease is not otherwise evident. IMPRESSION: 1. There may be some very subtle uptake within the posterior left L4 pedicle. Metastasis is not exclu ded. Consider MRI for additional evaluation. 2. No additional suspicious areas for metastasis identified
== END | disposition home or self-care (01) ==
LOC: RADNMMAIN 10:33
PROVIDERS: ATTEND Internal Medicine
DX: C67.9 Malignant neoplasm of bladder, unspecified (principal)
CPT/HCPCS: 78306; A9503

== ENCOUNTER → 2021-10-03 | Outpatient (CLI) | payer MEDICARE ==
--- NOTE | 2021-10-04 16:05 | MR ---
EXAMINATION TYPE: MR lumbar spine wo/w con DATE OF EXAM: 10/03/2021 COMPARISON: Nuclear medicine bone scan 09/06/[address] 06/14/2021 HISTORY: 80-year-old male R93.89 Abnormal bone scan, C67.9 bladder ca Technique: Multiplanar, multisequence images of the lumbar spine were obtained before and after admin istration of 9 mL intravenous Gadavist gadolinium contrast. FINDINGS: Vertebral body heights are preserved and alignment is maintained. Conus medullaris is normal. Moderate degenerative disc disease L3-S1 levels with desiccated, narrow common bulging discs. Corresponding ligamentum flavum thickening and hypertrophic facet arthropathy. There is no suspicious bone marrow replacement. There are some endplate cysts inferiorly and towards the right at L4 on a degenerative basis. From T12 through L3 levels, no spinal canal or neuroforaminal stenosis. At L3-L4, there is ligamentum flavum thickening with bulging disc causing mild circumferential narrow ing of the spinal canal. No central spinal canal stenosis. However, there is a sequestered disc fragm ent extending along the left paracentral region inferiorly behind the L4 vertebral body measuring 1.2 x 1.0 x 0.5 cm. This likely contacts the traversing left L4 nerve root. Minimal bilateral neuroforam inal narrowing. At L4-L5, diffuse disc bulge with ligamentum flavum thickening and hypertrophic facet arthropathy. Th ere is mild overall spinal canal stenosis. Some eccentric right lateral recess stenosis is also noted . There is [id number] right neuroforaminal stenosis and mild on the left. At L5-S1, diffuse disc bulge with posterior fissures along with facet arthropathy. Disc material may abut the bilateral traversing S1 nerve roots. No significant spinal canal stenosis. There is moderate to severe left and moderate right neuroforaminal stenosis with possible mild impingement of both exi ting L5 nerve roots. No suspicious bone marrow replacement. No suspicious enhancement within spinal canal. Redemonstrated large cysts present measuring 6.4 cm right kidney. Nonvisualization of left kidney. IMPRESSION: 1. No suspicious lesion to suggest osseous metastasis within the lumbar spine. There is some enhancin g endplate cystic change towards the right at L4-L5 as well as mid to lower lumbar spine facet arthro corby which may account for the bone scan findings. 2. Moderate degenerative disc disease mid to lower lumbar spine. Ligamentum flavum thickening and fac et arthropathy. Changes result in mild spinal canal stenosis at L4-L5. No hemalatha canal compromise. 3. Extruded and sequestered 1.2 cm disc fragment from L3-L4 extending inferiorly to the left lateral recess likely contacting the traversing left L4 nerve root. 4. Some eccentric right lateral stenosis at L4-L5. 5. Posterior disc bulge at L5-S1 containing annular fissures. Disc material may abut the bilateral tr aversing S1 nerve roots here. There is also moderate to severe left and moderate right neuroforaminal stenosis at this level.
== END | disposition home or self-care (01) ==
LOC: RADMRIMAIN 07:05
PROVIDERS: ATTEND Internal Medicine
DX: C67.9 Malignant neoplasm of bladder, unspecified (principal); R93.89 Abnormal findings on diagnostic imaging of other specified body structures
CPT/HCPCS: 72158; A9585

== ENCOUNTER 2022-05-29 09:58 | Emergency (ER) | payer MEDICARE ==
[2022-05-29 10:04] VITALS: RESP 18; TEMP 98
[2022-05-29] MEDS ORDERED: ASPIRIN 81 MG PO STA (10:12)
[2022-05-29] MEDS ORDERED: ALPRAZolam 0.5 MG TAB PO STA (10:38)
--- NOTE | 2022-05-29 11:19 | XR ---
EXAMINATION TYPE: XR chest 2V DATE OF EXAM: 05/29/2022 COMPARISON: 06/13/2021 HISTORY: 81-year-old male with chest pain and tightness TECHNIQUE: PA and lateral views FINDINGS: Heart upper limits of normal in size. Tortuosity/ectasia of the thoracic aorta may be slightly increa sed from 2021. Mild hyperinflation. No consolidation or pleural effusion. IMPRESSION: Hyperinflation; suspect underlying emphysema. Borderline heart size. Tortuosity/ectasia of the thorac ic aorta appears slightly increased from 06/13/2021. Otherwise, no acute process seen.
[2022-05-29 11:25] LABS: Basophils # (A) 0.1 k/uL (0-0.2); Basophils % (A) 1 %; Eosinophils # (A) 0.2 k/uL (0-0.7); Eosinophils % (A) 2 %; HCT 40.6 % (39.0-53.0); HGB 13.8 gm/dL (13.0-17.5); Lymphocytes # (A) 1.7 k/uL (1.0-4.8); Lymphocytes % (A) 26 %; MCH 31.6 pg (25.0-35.0); MCHC 33.9 g/dL (31.0-37.0); MCV 93.2 fL (80.0-100.0); Mean Platelet Volume 7.4; Monocytes # (A) 0.4 k/uL (0-1.0); Monocytes % (A) 6 %; Neutrophils % (A) 63 %; Platelet Count 247 k/uL (150-450); RBC 4.36 m/uL (4.30-5.90); RDW 12.8 % (11.5-15.5); WBC 6.4 k/uL (3.8-10.6)
[2022-05-29 11:37] LABS: Partial Thromboplastin Time 22.2 sec (22.0-30.0); Prothrombin Time 10.2 sec (9.0-12.0)
[2022-05-29 11:46] LABS: Albumin 4.2 g/dL (3.5-5.0); Calcium 9.2 mg/dL (8.4-10.2); Magnesium 2.1 mg/dL (1.6-2.3); Potassium 4.7 mmol/L (3.5-5.1); Total Bilirubin 0.4 mg/dL (0.2-1.3)
--- NOTE | 2022-05-29 12:15 | ED ---
General Adult HPI - General Chief complaint: Chest Pain Stated complaint: chest pain Time Seen by Provider: 05/29/22 10:12 Source: patient, RN notes reviewed, old records reviewed Mode of arrival: ambulatory Limitations: no limitations - History of Present Illness Initial comments: Patient is an 81-year-old male who presents emergency Department complaining of intermittent atypical chest pain over the last few days. States it starts in his left arm and then radiates somewhat towards his armpit. Denies any anterior chest pain at this time. Denies any shortness breath, fevers, chills, cough. Denies abdominal pain, nausea, vomiting. Repeats multiple times and he believes it is his anxiety. Has no cardiac history but does have a history of prostate cancer with an implanted chemotherapy medication. His no history of cardiac disease, stents, CAD. Has no other acute complaints at this time. Presents over concern for this chest discomfort which has been ongoing for multiple days. No known palliative or provocative factors. Patient repeatedly iterates that he believes that this is anxiety as he ran out of his Xanax. - Related Data Home Medications Medication Instructions Recorded Confirmed ALPRAZolam [Xanax] 0.5 mg PO BID PRN 06/13/21 06/13/21 Tamsulosin [Flomax] 0.4 mg PO DAILY 06/13/21 06/13/21 glipiZIDE [Glucotrol] 5 mg PO DAILY 06/13/21 06/13/21 Previous Rx's Medication Instructions Recorded carvediloL [Coreg] 3.125 mg PO BID-W/MEALS tab 06/15/21 cefUROXime axetiL [Ceftin] 500 mg PO BID 7 Days #14 tab 06/15/21 Allergies Allergy/AdvReac Type Severity Reaction Status Date / Time bee venom protein (honey bee) Allergy Anaphylaxis Verified 05/29/22 10:04 Review of Systems ROS Statement: Those systems with pertinent positive or pertinent negative responses have been documented in the HPI. Review of Systems: CONST: Denies fever EYES: Denies blurry vision ENT: Denies nasal congestion C/V: Endorses intermittent chest pain RESP: Denies shortness of breath GI: Denies abdominal pain : Denies dysuria SKIN: Denies rash. MSK: Denies joint pain. NEURO: Denies headache ROS Other: All systems not noted in ROS Statement are negative. Past Medical History Past Medical History: Cancer, Diabetes Mellitus Additional Past Medical History / Comment(s): stress test done one month ago, bladder cancer diagnosed 02/2021 History of Any Multi-Drug Resistant Organisms: None Reported Past Surgical History: No Surgical Hx Reported Additional Past Surgical History / Comment(s): tumors removed from bladder Past Psychological History: Anxiety Smoking Status: Former smoker Past Alcohol Use History: None Reported Past Drug Use History: None Reported General Exam - General Exam Comments Initial Comments: General: Appears in no acute distress. HEAD: Normal with no signs of head trauma. EYES: PERRLA, EOMI, conjunctiva normal, no discharge. ENT: Hearing grossly intact, normal oropharynx. RESPIRATORY: Clear breath sounds bilaterally. No wheezes, rales, or rhonchi. C/V: Regular rate and rhythm. S1 and S2 auscultated, no edema, peripheral pulses 2+ and intact throughout ABD: Abd is soft, nontender, nondistended EXT: Normal range of motion, no obvious deformity SKIN: No rashes or lesions observed on exposed skin. NEURO: Alert and oriented x 4. Cranial nerves II-XII intact. No focal sensory or strength deficits. Limitations: no limitations Course Vital Signs 05/29/22 05/29/22 10:01 12:23 Temperature 98 F Pulse Rate 64 55 L Respiratory 18 18 Rate Blood Pressure 183/99 161/98 O2 Sat by Pulse 99 97 Oximetry Medical Decision Making - Medical Decision Making Was pt. sent in by a medical professional or institution (, PA, FINISHER POLISHER, urgent care, hospital, or fci...) When possible be specific @ -No Did you speak to anyone other than the patient for history (EMS, parent, family, police, friend...)? What history was obtained from this source @ -No Did you review nursing and triage notes (agree or disagree)? Why? @ -I reviewed and agree with nursing and triage notes Were old charts reviewed (outside hosp., previous admission, EMS record, old EKG, old radiological studies, urgent care reports/EKG's, fci records)? Report findings @ -Yes, old charts reviewed from May 2021 including EKG and renal function. Differential Diagnosis (chest pain, altered mental status, abdominal pain women, abdominal pain men, vaginal bleeding, weakness, fever, dyspnea, syncope, headache, dizziness, GI bleed, back pain, seizure, CVA, palpatations, mental health, musculoskeletal)? @ -Differential Chest Pain: Stable Angina, Unstable Angina, STEMI, NSTEMI Aortic Dissection, Pneumothorax, Musculoskeletal, Esophageal Spasm GERD, Cholecystitis, Pancreatitis, Zoster, this is not meant to be an all-inclusive list. EKG interpreted by me (3pts min.). @ -As above X-rays interpreted by me (1pt min.). @ -Chest x-ray reveals no obvious acute cardio pulmonary process. CT interpreted by me (1pt min.). @ -None done U/S interpreted by me (1pt. min.). @ -None done What testing was considered but not performed or refused? (CT, X-rays, U/S, labs)? Why? @ -None What meds were considered but not given or refused? Why? @ -None Did you discuss the management of the patient with other professionals (professionals i.e. , PA, FINISHER POLISHER, lab, RT, psych nurse, social services, supervisor logging, teacher, sergeant of officers, briefcase sewer)? Give summary @ -No Was smoking cessation discussed for >3mins.? @ -No Was critical care preformed (if so, how long)? @ -No Were there social determinants of health that impacted care today? How? (Homelessness, low income, unemployed, alcoholism, drug addiction, trans portation, low edu. Level, literacy, decrease access to med. care, prison, rehab)? @ -No Was there de-escalation of care discussed even if they declined (Discuss DNR or withdrawal of care, Hospice)? DNR status @ -No What co-morbidities impacted this encounter? (DM, HTN, Smoking, COPD, CAD, Cancer, CVA, ARF, Chemo, Hep., AIDS, mental health diagnosis, sleep apnea, morbid obesity)? @ -None Was patient admitted / discharged? Hospital course, mention meds given and route, prescriptions, significant lab abnormalities, going to OR and other pertinent info. @ -Based on the patient's presentation and physical exam, I do have concern for acute cardio pulmonary process at this time for his current symptoms. Chest pain has been ongoing for days. No acute changes on it. Common and goes. She is to be worse when his anxiety is worse he states. His no other acute co mplaints at this time. We will obtain cardio pulmonary labs, EKG, chest x-ray. He will be given aspirin as well as Xanax at his request. He was in agreement this plan. Vital signs within acceptable limits. EKG shows no signs of acute ischemia. Laboratory studies are remarkable for an undetectable troponin. Remainder the patient's labs are remarkable for nobody BUN/creatinine that this is at his baseline as he does have a history of CK D. Patient's Covid, flu, RSV negative. Chest x-ray is unremarkable. Reevaluation come patient is feeling improved. Patient's heart score is low at 3. I did offer him admission but he declines at this time. He is feeling improved. I do believe this is reasonable. He will be discharged home at this time with strict return precautions. We discussed his negative workup otherwise. I instructed the patient to follow up with their PCP in the next 1-3 days. I explained that the patient should return to the emergency department if they experience any worsening symptoms. Strict return precautions were discussed with the patient. The patient expressed understanding of these instructions. I answered all questions that the patient had. The patient was discharged home in good condition with their prescriptions and follow up information. Undiagnosed new problem with uncertain prognosis? @ -No Drug Therapy requiring intensive monitoring for toxicity (Heparin, Nitro, Insulin, Cardizem)? @ -No Were any procedures done? @ -No Diagnosis/symptom? @ -Atypical chest pain Acute, or Chronic, or Acute on Chronic? @ -Acute Uncomplicated (without systemic symptoms) or Complicated (systemic symptoms)? @ -Uncomplicated Side effects of treatment? @ -No Exacerbation, Progression, or Severe Exacerbation? @ -No Poses a threat to life or bodily function? How? (Chest pain, [place], [place], pneumonia, PE, COPD, DKA, ARF, appy, cholecystitis, CVA, Diverticulitis, Homicidal, Suicidal, threat to staff... and all critical care pts) @ -Potentially, unknown etiology Diagnosis/symptom? @ -Chronic kidney disease Acute, or Chronic, or Acute on Chronic? @ -Chronic Uncomplicated (without systemic symptoms) or Complicated (systemic symptoms)? @ -Uncomplicated Side effects of treatment? @ -none Exacerbation, Progression, or Severe Exacerbation] @ -no Poses a threat to life or bodily function? @ -no - Lab Data Result diagrams: 05/29/22 10:19 05/29/22 10:19 Lab Results 05/29/22 05/29/22 05/29/22 Range/Units 10:19 10:19 10:19 WBC 6.4 (3.8-10.6) k/uL RBC 4.36 (4.30-5.90) m/uL Hgb 13.8 (13.0-17.5) gm/dL Hct 40.6 (39.0-53.0) % MCV 93.2 (80.0-100.0) fL MCH 31.6 (25.0-35.0) pg MCHC 33.9 (31.0-37.0) g/dL RDW 12.8 (11.5-15.5) % Plt Count 247 (150-450) k/uL MPV 7.4 Neutrophils % 63 % Lymphocytes % 26 % Monocytes % 6 % Eosinophils % 2 % Basophils % 1 % Neutrophils # 4.0 (1.3-7.7) k/uL Lymphocytes # 1.7 (1.0-4.8) k/uL Monocytes # 0.4 (0-1.0) k/uL Eosinophils # 0.2 (0-0.7) k/uL Basophils # 0.1 (0-0.2) k/uL PT 10.2 (9.0-12.0) sec INR 1.0 (<1.2) APTT 22.2 (22.0-30.0) sec Sodium 139 (137-145) mmol/L Potassium 4.7 (3.5-5.1) mmol/L Chloride 107 (98-107) mmol/L Carbon Dioxide 22 (22-30) mmol/L Anion Gap 10 mmol/L BUN 37 H (9-20) mg/dL Creatinine 1.95 H (0.66-1.25) mg/dL Est GFR (CKD-EPI)AfAm 37 (>60 ml/min/1.73 sqM) Est GFR (CKD-EPI)NonAf 32 (>60 ml/min/1.73 sqM) Glucose 121 H (74-99) mg/dL Calcium 9.2 (8.4-10.2) mg/dL Magnesium 2.1 (1.6-2.3) mg/dL Total Bilirubin 0.4 (0.2-1.3) mg/dL AST 26 (17-59) U/L ALT 21 (4-49) U/L Alkaline Phosphatase 57 (38-126) U/L Troponin I (0.000-0.034) ng/mL Total Protein 7.0 (6.3-8.2) g/dL Albumin 4.2 (3.5-5.0) g/dL Influenza Type A (PCR) (Not Detectd) Influenza Type B (PCR) (Not Detectd) RSV (PCR) (Not Detectd) SARS-CoV-2 (PCR) (Not Detectd) 05/29/22 05/29/22 Range/Units 10:19 10:38 WBC (3.8-10.6) k/uL RBC (4.30-5.90) m/uL Hgb (13.0-17.5) gm/dL Hct (39.0-53.0) % MCV (80.0-100.0) fL MCH (25.0-35.0) pg MCHC (31.0-37.0) g/dL RDW (11.5-15.5) % Plt Count (150-450) k/uL MPV Neutrophils % % Lymphocytes % % Monocytes % % Eosinophils % % Basophils % % Neutrophils # (1.3-7.7) k/uL Lymphocytes # (1.0-4.8) k/uL Monocytes # (0-1.0) k/uL Eosinophils # (0-0.7) k/uL Basophils # (0-0.2) k/uL PT (9.0-12.0) sec INR (<1.2) APTT (22.0-30.0) sec Sodium (137-145) mmol/L Potassium (3.5-5.1) mmol/L Chloride (98-107) mmol/L Carbon Dioxide (22-30) mmol/L Anion Gap mmol/L BUN (9-20) mg/dL Creatinine (0.66-1.25) mg/dL Est GFR (CKD-EPI)AfAm (>60 ml/min/1.73 sqM) Est GFR (CKD-EPI)NonAf (>60 ml/min/1.73 sqM) Glucose (74-99) mg/dL Calcium (8.4-10.2) mg/dL Magnesium (1.6-2.3) mg/dL Total Bilirubin (0.2-1.3) mg/dL AST (17-59) U/L ALT (4-49) U/L Alkaline Phosphatase (38-126) U/L Troponin I <0.012 (0.000-0.034) ng/mL Total Protein (6.3-8.2) g/dL Albumin (3.5-5.0) g/dL Influenza Type A (PCR) Not Detected (Not Detectd) Influenza Type B (PCR) Not Detected (Not Detectd) RSV (PCR) Not Detected (Not Detectd) SARS-CoV-2 (PCR) Not Detected (Not Detectd) - EKG Data -: EKG Interpreted by Me EKG Comments: 12-lead Electrocardiogram Interpretation Note EKG was reviewed and interpreted by myself. 12-lead ECG performed at 1019 is interpreted by me as revealing normal sinus rhythm at a rate of 54 beats per minute. Left axis deviation. OR Intervals 161 ms, QRS duration is 102 ms, QTc is 425 ms.. There were no ST or T wave abnormalities to suggest myocardial ischemia or injury. R wave progression across the precordium was satisfactory. By my interpretation this EKG is non-diagnostic for acute ischemia. When compared with EKG from May 2021, no significant change. Disposition Clinical Impression: Atypical chest pain, CKD (chronic kidney disease) Disposition: HOME SELF-CARE Condition: Good Instructions (If sedation given, give patient instructions): Chest Pain (ED) Is patient prescribed a controlled substance at d/c from ED?: No Referrals: Tatum Hardy MD [Primary Care Provider] - 1-2 days Alpa Hughes MD [STAFF PHYSICIAN] - 1-2 days Time of Disposition: 12:05
[2022-05-29 12:23] VITALS: BP 161/98; PULSE 55
== END 2022-05-29 12:25 | disposition home or self-care (01) ==
LOC: EC 09:58
DX: E11.22 Type 2 diabetes mellitus with diabetic chronic kidney disease (principal); N18.9 Chronic kidney disease, unspecified; R07.89 Other chest pain; F41.9 Anxiety disorder, unspecified; Z87.891 Personal history of nicotine dependence; Z79.84 Long term (current) use of oral hypoglycemic drugs; Z91.030 Bee allergy status; Z20.822 Contact with and (suspected) exposure to COVID-19
CPT/HCPCS: 36415; 71046; 80053; 83735; 84484; 85025; 85610; 85730; 87636; 93005; 99285

== ENCOUNTER → 2022-11-11 | Outpatient (CLI) | payer MEDICARE ==
[2022-11-11 09:28] LABS: African American GFR (CKD) 34 (>60 ml/min/1.73 sqM); Blood Urea Nitrogen 47 mg/dL (9-20); Non-African American GFR(CKD) 29 (>60 ml/min/1.73 sqM)
--- NOTE | 2022-11-11 10:56 | CT ---
EXAMINATION TYPE: CT soft tissue neck wo con DATE OF EXAM: 11/11/2022 COMPARISON: None HISTORY: Trouble swallowing CT DLP: [address] of the neck was performed from the skull base through the lung apices. The lack of cont rast limits evaluation. AIRWAY: The supraglottic, glottic, and subglottic portions of the airway appear patent and free of mass. SALIVARY GLANDS: The submandibular and parotid glands are free of mass or inflammatory process. THYROID GLAND: No nodules or masses seen. LYMPH NODES: No adenopathy seen greater than 1cm. LUNG APICES: No nodule or mass is seen. OTHER: Vascular structures are patent. No significant degenerative change of the cervical spine. N o abscess seen. Mucous retention cysts or polyps right maxillary sinus. IMPRESSION: No significant abnormality to account for patient's symptoms.
--- NOTE | 2022-11-11 11:31 | FL ---
EXAMINATION TYPE: FL barium swallow DATE OF EXAM: 11/11/2022 10:24 AM COMPARISON: Chest radiograph from 05/29/2022, CLINICAL INDICATION:Male, 81 years old with history of DYSPHAGIA; [facility], TECHNIQUE: The procedure was explained and patient history elicited. All patient questions were ans wered prior to start of procedure. Multiple spot fluoroscopic images of the esophagus were obtained a fter the oral ingestion of effervescent crystals and liquid barium as the contrast agent. Fluoroscopic time: 21 dense Fluoroscopic images: 0 Radiographs taken: 111 DAP: 1086.68 mGym2 FINDINGS: The esophagus demonstrates normal primary and secondary peristalsis. The esophageal mucosa is smooth without evidence of focal stricture, ulceration, or abnormal outpouching. There is tertiary contrac tion seen throughout the esophagus IMPRESSION: There is esophageal dysmotility without evidence for aspiration or food getting stuck in the pharynx. Consider direct visualization to rule out underlying lesion. No definitive lesion seen on CT same da y.
== END | disposition home or self-care (01) ==
LOC: RADCTMAIN 08:08
PROVIDERS: ATTEND Otolaryngology
DX: K22.4 Dyskinesia of esophagus (principal); R22.1 Localized swelling, mass and lump, neck; R13.10 Dysphagia, unspecified
CPT/HCPCS: 70490; 74220; 82565; 84520

== ENCOUNTER 2023-01-22 10:50 | Day surgery (SDC) | payer MEDICARE ==
[2023-01-20 14:06] VITALS: BMI 28.3
[~2023-01-22 10:50] MED LIST: LACTATED RINGERS 1,000 ML IV SCH; LIDOCAINE 1% (10MG/ML) FOR IV START INTRADERMA PRN
[2023-01-22 12:04] LABS: Glucose,Whole Blood 120 mg/dL (70-110)
[2023-01-22 12:20] VITALS: TEMP 97
[2023-01-22] MEDS ORDERED: LIDOCAINE 2% (PF) 20 MG/ML 5 ML VIAL ONE (12:35)
[2023-01-22] MEDS ORDERED: PROPOFOL 10 MG/ML 20 ML VIAL IV ONE (12:35)
--- NOTE | 2023-01-22 12:45 | P.PCN ---
Date of Procedure: 01/22/23 Procedure(s) Performed: BRIEF HISTORY: Patient is a 82-year-old, pleasant, white male scheduled for an upper endoscopy as a part of evaluation of intermittent dysphagia to solids for the last 6 months duration. Having symptoms almost a daily basis and not associated weight loss or heartburn.. PROCEDURE PERFORMED: Esophagogastroduodenoscopy with biopsy. PREOPERATIVE DIAGNOSIS: Intermittent dysphagia to solids of 6 months duration.. IV sedation per anesthesia. PROCEDURE: After informed consent was obtained, the patient was brought into the endoscopy unit. IV sedation was administered by Anesthesia under continuous monitoring. Initially the Olympus GIF-140 video endoscope was inserted into the mouth. Esophagus intubated without any difficulty. It was gradually advanced into the stomach and duodenum and carefully examined. The bulb and the second part of the duodenum appeared normal. The scope at this time was withdrawn to the stomach, adequately insufflated with air, and upon careful examination, mucosa of the antrum, mild patchy areas of erythema and biopsies were done from this area. Mucosa of the body, cardia and the fundus appeared normal. The scope was then withdrawn into the esophagus. The GE junction was located at 41 cm from the incisors. The esophagus appeared normal. There was no esophageal stricture seen. There were no erosions or ulcerations seen . The proximal cervical esophagus was carefully examined which appeared normal. There was no evidence of Zenker's diverticulum noted. Biopsies were done from the mid and distal esophagus to rule out years of esophagitis and the patient tolerated the procedure well. IMPRESSION: 1. Normal-appearing esophagus with no evidence of esophagitis, esophageal stricture or Zenker's diverticulum. 2. Mild antral gastritis. RECOMMENDATIONS: The findings of this examination were discussed with the patient as well as his family. He was advised to follow with the biopsy results and he'll be seen in office in 3-4 weeks..
[2023-01-22 13:37] VITALS: BP 169/88; PULSE 78; RESP 18
== END 2023-01-22 13:45 | disposition home or self-care (01) ==
LOC: ORWHC2ENDO 10:50
PROVIDERS: ATTEND Internal Medicine Gastroenterology
DX: K29.50 Unspecified chronic gastritis without bleeding (principal); K20.90 Esophagitis, unspecified without bleeding; J44.9 Chronic obstructive pulmonary disease, unspecified; E11.9 Type 2 diabetes mellitus without complications; Z85.51 Personal history of malignant neoplasm of bladder; Z98.890 Other specified postprocedural states; Z79.83 Long term (current) use of bisphosphonates; Z79.84 Long term (current) use of oral hypoglycemic drugs; Z79.899 Other long term (current) drug therapy
CPT/HCPCS: 88305; 88342; 43239; J2704; J2001

== ENCOUNTER → 2023-06-20 | Outpatient (CLI) | payer MEDICARE ==
--- NOTE | 2023-06-20 13:02 | CT ---
EXAMINATION TYPE: CT abdomen pelvis wo con DATE OF EXAM: 06/20/2023 COMPARISON: 06/14/2021 INDICATION: follow up bladder ca DLP: 549.6 mGycm, Automated exposure control for dose reduction was used. CONTRAST: 0 mL of Isovue 300. Study performed without Oral Contrast TECHNIQUE: Axial images were obtained from above the diaphragm to the pubic rami in the axial plane a t 5 mm thick sections. Reconstructed images are reviewed on the computer in the coronal plane. FINDINGS: Limited CT sections are obtained the lung bases. The lung bases are clear. CT ABDOMEN: Liver: Normal Spleen: Normal Pancreas: Atrophic Adrenal glands: The adrenal glands are normal. Gallbladder: Normal Kidneys: Left kidney is not identified. No masses are evident. No hydronephrosis is present. There is a 3.9 cm cyst on the posterior upper pole right kidney. At the superior pole medially there is a 2 .8 cm cyst. Peripelvic cysts may be within the mid right kidney. No renal stones are evident. Aorta: Vascular calcification is within the aorta. Inferior vena cava: Normal. CT PELVIS: Loops of bowel within the abdomen and pelvis are normal. Study is without oral contrast limiting bowel evaluation. Appendix: Normal as visualized. Urinary bladder and Genitourinary structures: Prostate is prominent. There may be inferior impression versus left posterior lateral mass at the urinary bladder. Finding appears similar to 2021. Osseous structures: No suspicious lytic or sclerotic lesions. Degenerative disc changes are within th e lumbar spine IMPRESSION: 1. Prominent prostate likely has inferior urinary bladder impression. This appears similar to prior exam. 2. Absence of the left kidney. 3. Multiple stable appearing cyst right kidney
== END | disposition home or self-care (01) ==
LOC: RADCTMAIN 11:44
PROVIDERS: ATTEND Urology
DX: C67.9 Malignant neoplasm of bladder, unspecified (principal); Q61.02 Congenital multiple renal cysts; Z90.5 Acquired absence of kidney
CPT/HCPCS: 74176

== ENCOUNTER → 2023-08-13 | Outpatient (CLI) | payer MEDICARE ==
[2023-08-13 15:31] LABS: African American GFR (CKD) 37 (>60 ml/min/1.73 sqM); Blood Urea Nitrogen 38 mg/dL (9-20); Non-African American GFR(CKD) 32 (>60 ml/min/1.73 sqM)
--- NOTE | 2023-08-13 16:28 | CT ---
EXAMINATION TYPE: CT chest w con DATE OF EXAM: 08/13/2023 COMPARISON: 06/14/2021 HISTORY: 82-year-old male R06.02, SOB. Difficulty swallowing. TECHNIQUE: Contiguous axial scanning of the chest after the administration of 70 ml mL of Isovue 300. Coronal/sagittal reconstructions performed. CT DLP: 403.8mGycm. Automatic exposure control utilized for a dose reduction. FINDINGS: The heart is normal size without pericardial effusion. LAD coronary artery calcifications are present . Mild aortic valvular calcifications. 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 Mild atherosclerotic arch calcifications. Bovine configuration to the aortic arch. Aberrant direct ta keoff of a nondominant left vertebral artery directly from the aortic arch. Unchanged 1.5 cm intramuscular lipoma left lateral chest wall. No thoracic lymphadenopathy by CT size criteria. Lungs show some stable pleural based calcifications posterior upper to midlung, unchanged from 2021 s uggesting chronic postinflammatory etiology. Otherwise, no consolidation or pleural effusion. 4 mm subpleural pulmonary nodule lateral right midlung, axial image 33 is unchanged. 3 mm subpleural pulmonary nodule left lower lobe, axial image 39 is unchanged. Visualized upper abdomen again shows right renal cysts measuring up to 6.9 cm. Absence of the left ki dney again noted. Bones: Anterior endplate spondylosis mid to lower thoracic spine with slight accentuated mid thoracic kyphosis. Inferior endplate Schmorl's node L1 vertebral body. IMPRESSION: 1. Chronic changes in the lungs including a couple small pulmonary nodules measuring up to 4 mm and s ome nonspecific pleural calcification posterior left upper and midlung. No acute pulmonary process. 2. 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
== END | disposition home or self-care (01) ==
LOC: RADCTMAIN 14:46
PROVIDERS: ATTEND Internal Medicine
DX: I71.21 Aneurysm of the ascending aorta, without rupture (principal); R91.8 Other nonspecific abnormal finding of lung field; J94.8 Other specified pleural conditions
CPT/HCPCS: 82565; 84520; 71260; 36415; Q9967

== ENCOUNTER 2023-09-29 16:28 | Inpatient (IN) | payer MEDICARE ==
--- NOTE | 2023-09-29 16:55 | ED ---
General Adult HPI - General Source: patient, RN notes reviewed Mode of arrival: ambulatory Limitations: no limitations <Joelle Garrett - Last Filed: 09/30/23 10:07> <Lety Lemus - Last Filed: 10/02/23 12:00> - General Chief complaint: Chest Pain Stated complaint: LALO,Chest Pain-Sent by Time Seen by Provider: 09/29/23 16:40 - History of Present Illness Initial comments: Quick Note- this is an 82 year old male with stage 4 bladder cancer, not on chemo or radiation, who presents to the ER chief complaint worsening dyspnea over the past few days. He states that he has been experiencing a productive cough with blood streaked phlegm. Patient follows with Dr. Morales. Denies history of COPD/asthma. (Joelle Garrett) Patient is a pleasant 82-year-old gentleman past medical history stage IV bladder cancer, previously on chemotherapy-no no chemotherapy or radiation in the last 6 months presenting for right-sided chest pain and cough. Patient states pain in his right chest is a sharp pain that radiates intermittently down his right upper quadrant, up into his right shoulder. , Currently present. Patient states over the last 2 days he has had sputum production, dark yellow sputum. No history of COPD. Prior smoker quit 5 years ago. Endorsed to PA that patient he was also having hemoptysis. No history of prior PE. No fevers, chills. Does state that he gets sweats. Is concerned that his cancer is spread. Patient also does gradually worsening vision, stating he feels his macular degeneration is worsening but is concerned it has something to do with his CA. Denies numbness, weakness. (Lety Lemus) - Related Data Home Medications Medication Instructions Recorded Confirmed ALPRAZolam [Xanax] 0.5 mg PO BID PRN 06/13/21 09/29/23 glipiZIDE [Glucotrol] 5 mg PO BID 06/13/21 09/29/23 Ergocalciferol (Vitamin D2) 1,250 mcg PO Q14D 09/29/23 09/29/23 [Drisdol (50,000 Iu)] HYDROcodone/APAP 7.5-325MG [[place] 1 tab PO Q8H PRN 09/29/23 09/29/23 7.5-325] carvediloL [Coreg] 6.25 mg PO BID-W/MEALS 09/29/23 09/29/23 Allergies Allergy/AdvReac Type Severity Reaction Status Date / Time bee venom protein (honey bee) Allergy Anaphylaxis Verified 10/01/23 08:06 Review of Systems ROS Other: All systems not noted in ROS Statement are negative. <Joelle Garrett - Last Filed: 09/30/23 10:07> ROS Other: All systems not noted in ROS Statement are negative. <Lety Lemus - Last Filed: 10/02/23 12:00> ROS Statement: Those systems with pertinent positive or pertinent negative responses have been documented in the HPI. Past Medical History Past Medical History: Cancer, Diabetes Mellitus Additional Past Medical History / Comment(s): stress test done one month ago, bladder cancer diagnosed 02/2021 History of Any Multi-Drug Resistant Organisms: None Reported Past Surgical History: Bladder Surgery Additional Past Surgical History / Comment(s): tumors removed from bladder, colonoscopy Past Anesthesia/Blood Transfusion Reactions: No Reported Reaction Past Psychological History: Anxiety Smoking Status: Former smoker Past Alcohol Use History: None Reported Past Drug Use History: None Reported <Joelle Garrett - Last Filed: 09/30/23 10:07> General Exam Limitations: no limitations <Joelle Garrett - Last Filed: 09/30/23 10:07> <Lety Lemus - Last Filed: 10/02/23 12:00> - General Exam Comments Initial Comments: Visual Physical Exam Vital signs reviewed General: Well-appearing, nontoxic, no acute distress. Head: Normocephalic, atraumatic Eyes: PERRLA, EOMI ENT: Airway patent Chest: Nonlabored breathing Skin: No visual rash, normal skin tone Neuro: Alert and oriented 3 Musculoskeletal: No gross abnormalities (Stielewilian,Joelle) PE: CONSTITUTIONAL: no apparent distress, well appearing SKIN: warm, dry, no jaundice, hives or petechiae EYES: pupils are equally round, extraocular movements intact without nystagmus, clear conjunctiva, non-icteric sclera HENT: normocephalic, atraumatic, moist mucus membranes, oropharynx clear without exudates NECK: Full range of motion PULMONARY: clear to auscultation without wheezes, rhonchi, or rales, normal excursion, no accessory muscle use and no stridor CARDIOVASCULAR: regular rate, rhythm, normal S1 and S2. No appreciated murmurs. Strong radial pulses with intact distal perfusion GASTROINTESTINAL: soft, non-tender, non-distended, no palpable masses, no rebound or guarding LYMPHATICS: no edema in lower extremities MUSCULOSKELETAL: Extremities have no gross deformity, no edema, redness, or swelling NEUROLOGIC: _a/o x 3, GCS 15, normal mentation and speech. Moves all extremities x 4 without motor or sensory deficit. No facial droop or slurred speech. No focal motor deficits. PSYCHIATRIC: _normal mood and affect, thought process is clear and linear (Lety Lemus) Course Vital Signs 09/29/23 09/29/23 09/29/23 16:29 19:02 21:00 Temperature 98.2 F Pulse Rate 79 56 L 53 L Respiratory 18 18 18 Rate Blood Pressure 128/83 181/96 184/102 O2 Sat by Pulse 98 99 99 Oximetry 09/29/23 09/30/23 09/30/23 22:08 02:16 06:57 Temperature Pulse Rate 78 57 L 50 L Respiratory 20 18 18 Rate Blood Pressure 190/84 147/80 169/77 O2 Sat by Pulse 98 97 96 Oximetry 09/30/23 09/30/23 09/30/23 09:15 12:17 14:00 Temperature Pulse Rate 56 L 51 L 56 L Respiratory 18 18 18 Rate Blood Pressure 186/90 164/99 161/82 O2 Sat by Pulse 99 99 95 Oximetry 09/30/23 09/30/23 09/30/23 17:31 18:45 21:12 Temperature Pulse Rate 58 L 64 53 L Respiratory 18 18 18 Rate Blood Pressure 134/94 158/88 O2 Sat by Pulse 97 96 97 Oximetry 09/30/23 22:12 Temperature 98.7 F Pulse Rate 51 L Respiratory 14 Rate Blood Pressure 155/88 O2 Sat by Pulse 98 Oximetry EKG Findings - EKG Comments: EKG Findings:: Sinus rhythm. 65 bpm. Normal intervals. Left axis deviation. Artifact present throughout. Q wave present V3, V4. No STEMI, No arrythmia, no signficant ST depression <Lety Lemus - Last Filed: 10/02/23 12:00> Medical Decision Making - Lab Data Result diagrams: 09/29/23 17:29 09/29/23 17:29 <Joelle Garrett - Last Filed: 09/30/23 10:07> - Lab Data Result diagrams: 10/02/23 04:42 10/02/23 04:42 <Lety Lemus - Last Filed: 10/02/23 12:00> - Medical Decision Making I completed the quick note portion of this chart signed Joelle Garrett PA-C (Joelle Garrett) Was pt. sent in by a medical professional or institution (KONSTANTIN Becker, AIRCRAFT MAINTENANCE MANAGER, urgent care, hospital, or residential...) When possible be specific @ -No Did you speak to anyone other than the patient for history (EMS, parent, family, police, friend...)? What history was obtained from this source @ -No Did you review nursing and triage notes (agree or disagree)? Why? @ -I reviewed and agree with nursing and triage notes Were old charts reviewed (outside hosp., previous admission, EMS record, old EKG, old radiological studies, urgent care reports/EKG's, residential records)? Report findings @ CT abdomen pelvis performed on 06/20/2023 notable for prominent prostate, CT chest performed at the end of July, 08/13/2023, showed nodules in the lungs Differential Diagnosis (chest pain, altered mental status, abdominal pain women, abdominal pain men, vaginal bleeding, weakness, fever, dyspnea, syncope, headache, dizziness, GI bleed, back pain, seizure, CVA, palpatations, mental health, musculoskeletal)? @ -Differential Chest Pain: ACS, pericarditis, costochondritis pneumothorax, Musculoskeletal, Esophageal Spasm GERD, Cholecystitis, pulmonary nodule or effusion- this is not meant to be an all-inclusive list. EKG interpreted by me (3pts min.). @ As above X-rays interpreted by me (1pt min.). @ -X-ray read by radiologist as will COPD, on my assessment lungs do not appear hyperinflated, I see no consolidations, effusions or cardiomegaly CT interpreted by me (1pt min.). @ - CT PE studyradiologist impression read as "correlate for underlying pulmonary arterial hypertension, no evidence for pulmonary embolism, prominent LAD and circumflex coronary artery calcifications, mild aneurysm ascending aorta 4 cm, f ew scattered calcified pleural plaques, correlate for any history of prior asbestos exposure". Also of note in findings by radiologist, a 4 mm subpleural pulmonary nodule posterior left lower lobe is unchanged.". I reviewed CT scan, I agree with radiologist interpretationI see no evidence of pulmonary embolism, pleural plaques noted. CT brain read by radiologist- "mild hydrocephalus, may be an ex vacuo basis relating this or ventral cerebral atrophy, correlate to exclude component of NPH, otherwise no acute intracranial abnormality, if current percent persist concern consider contrast-enhanced MRI for more sensitive evaluation", I reviewed patient's CT brain, agree with radiologist interpretation, I see no acute intracranial abnormality, I do see the mild hydrocephalus described by ra [email or web address]. I suspect these findings are more likely due to cerebral atrophy given patient's age and patient does not describe symptoms consistent with NPH. I did consider obtaining CT of the abdomen given history of bladder cancer and radiation of pain intermittently to the right upper quadrant however patient not experiencing nausea vomiting, abdominal exam is benign with a negative Salgado sign, soft nontender abdomen active bowel sounds, abdomen nondistended. Basic labs ordered by triage provider showed elevation in LFTs or leukocytosis. Did you discuss the management of the patient with other professionals (professionals i.e. , PA, AIRCRAFT MAINTENANCE MANAGER, lab, RT, psych nurse, secondary social studies teacher, pipe stress engineer, teacher, aerospace engineer officer armament, protective services case worker)? Give summary @ -No Was smoking cessation discussed for >3mins.? @ -No Was critical care preformed (if so, how long)? @ -No Were there social determinants of health that impacted care today? How? (Homelessness, low income, unemployed, alcoholism, drug addiction, transportation, low edu. Level, literacy, decrease access to med. care, alf, rehab)? @ -No Was there de-escalation of care discussed even if they declined (Discuss DNR or withdrawal of care, Hospice)? DNR status @ -No What co-morbidities impacted this encounter? (DM, HTN, Smoking, COPD, CAD, Canc er, CVA, ARF, Chemo, Hep., AIDS, mental health diagnosis, sleep apnea, morbid obesity)? @ -History of bladder cancer Was patient admitted / discharged? Hospital course, mention meds given and route, prescriptions, significant lab abnormalities, going to OR and other pertinent info. @ -Patient admitted to the hospital- Patient is a pleasant 82-year-old gentleman past medical history of bladder can cer presenting for right-sided chest pain and productive cough. Cough productive of yellow thick sputum and blood. Worsening shortness of breath. History hypertension and smoking. Patient concerned that chest pain is secondary to worsening of his bladder cancer. States he has not received any t reatment in the last 6 months. On initial evaluation patient is a pleasant 82-year-old male in no acute distress. Conversant. Lungs clear to auscultation bilaterally, normal S1-S2 without murmurs rubs or gallops on cardiac exam. Skin is pink and well-perfused. Plan for CT PE study, troponin, CMP and CBC already ordered, BNP. Considered nebulizer treatment/steroids given history of smoking however patient has no wheezes on lung exam/exam is not consistent with COPD exacerbation, lungs are clear to auscultation, is not hypoxic, not tachypneic, currently comfortable so I do not feel nebulizer treatment or steroids would be beneficial at this point. Pain control offered however patient currently comfortable and politely declined further pain control at this point. Troponin within normal limits. Chest x-ray shows possible findings of COPD, CT PE study obtained and shows no pulmonary embolism does show pulmonary plaques no nodules. Labs reassuring, white blood cell count 5.4, hemoglobin 13.9, BUN/creatinine 32/1.8, this does appear to be chronic for the patient without any significant acute , elevation, GFR 33, AST/ALT 23/16, alkaline phosphatase 47, total bilirubin 0.6 BNP 258, troponin less than 0.012, creatinine was previously 1.93 on 08/13/2023 GFR last noted to be 28 on 07/30/2023. Updated patient, plan for admission to trend troponin, echocardiogram in the morning, consider pulmonary consult. Patient is comfortable and agreeable with POC. Spoke with admitting hospitalist, Dr. Hardy who accept patient for admission Drug Therapy requiring intensive monitoring for toxicity (Heparin, Nitro, Insulin, Cardizem)? @ -No Diagnosis/symptom? @ Right sided chest pain Acute, or Chronic, or Acute on Chronic? @ -Acute Uncomplicated (without systemic symptoms) or Complicated (systemic symptoms)? @ -Complicated Side effects of treatment? @ -No Poses a threat to life or bodily function? How? (Chest pain, [place], [place], pneumonia, PE, COPD, DKA, ARF, appy, cholecystitis, CVA, Diverticulitis, Homicidal, Suicidal, threat to staff... and all critical care pts) @ -Yes, chest pain, shortness of breath (Lety Lemus) - Lab Data Lab Results 09/29/23 09/29/23 09/29/23 Range/Units 17:29 17:29 17:29 WBC 5.4 (3.8-10.6) k/uL RBC 4.33 (4.30-5.90) m/uL Hgb 13.9 (13.0-17.5) gm/dL Hct 42.7 (39.0-53.0) % MCV 98.6 (80.0-100.0) fL MCH 32.0 (25.0-35.0) pg MCHC 32.5 (31.0-37.0) g/dL RDW 12.9 (11.5-15.5) % Plt Count 246 (150-450) k/uL MPV 7.4 Neutrophils % 60 % Lymphocytes % 28 % Monocytes % 7 % Eosinophils % 3 % Basophils % 1 % Neutrophils # 3.2 (1.3-7.7) k/uL Lymphocytes # 1.5 (1.0-4.8) k/uL Monocytes # 0.4 (0-1.0) k/uL Eosinophils # 0.1 (0-0.7) k/uL Basophils # 0.0 (0-0.2) k/uL PT 10.4 (10.0-12.5) sec INR 0.9 (<1.2) APTT 23.2 (22.0-30.0) sec VBG pH (7.31-7.41) VBG pCO2 (37-51) mmHg VBG HCO3 (24-28) mmol/L Sodium 139 (137-145) mmol/L Potassium 4.2 (3.5-5.1) mmol/L Chloride 109 H (98-107) mmol/L Carbon Dioxide 21 L (22-30) mmol/L Anion Gap 9 mmol/L BUN 32 H (9-20) mg/dL Creatinine 1.88 H (0.66-1.25) mg/dL Est GFR (CKD-EPI)AfAm 38 (>60 ml/min/1.73 sqM) Est GFR (CKD-EPI)NonAf 33 (>60 ml/min/1.73 sqM) Glucose 178 H (74-99) mg/dL Calcium 9.7 (8.4-10.2) mg/dL Magnesium 2.0 (1.6-2.3) mg/dL Total Bilirubin 0.6 (0.2-1.3) mg/dL AST 23 (17-59) U/L ALT 16 (4-49) U/L Alkaline Phosphatase 47 (38-126) U/L Troponin I (0.000-0.034) ng/mL NT-Pro-B Natriuret Pep 258 pg/mL Total Protein 7.0 (6.3-8.2) g/dL Albumin 4.5 (3.5-5.0) g/dL 09/29/23 09/29/23 Range/Units 17:29 19:46 WBC (3.8-10.6) k/uL RBC (4.30-5.90) m/uL Hgb (13.0-17.5) gm/dL Hct (39.0-53.0) % MCV (80.0-100.0) fL MCH (25.0-35.0) pg MCHC (31.0-37.0) g/dL RDW (11.5-15.5) % Plt Count (150-450) k/uL MPV Neutrophils % % Lymphocytes % % Monocytes % % Eosinophils % % Basophils % % Neutrophils # (1.3-7.7) k/uL Lymphocytes # (1.0-4.8) k/uL Monocytes # (0-1.0) k/uL Eosinophils # (0-0.7) k/uL Basophils # (0-0.2) k/uL PT (10.0-12.5) sec INR (<1.2) APTT (22.0-30.0) sec VBG pH 7.37 (7.31-7.41) VBG pCO2 41 (37-51) mmHg VBG HCO3 24 (24-28) mmol/L Sodium (137-145) mmol/L Potassium (3.5-5.1) mmol/L Chloride (98-107) mmol/L Carbon Dioxide (22-30) mmol/L Anion Gap mmol/L BUN (9-20) mg/dL Creatinine (0.66-1.25) mg/dL Est GFR (CKD-EPI)AfAm (>60 ml/min/1.73 sqM) Est GFR (CKD-EPI)NonAf (>60 ml/min/1.73 sqM) Glucose (74-99) mg/dL Calcium (8.4-10.2) mg/dL Magnesium (1.6-2.3) mg/dL Total Bilirubin (0.2-1.3) mg/dL AST (17-59) U/L ALT (4-49) U/L Alkaline Phosphatase (38-126) U/L Troponin I <0.012 (0.000-0.034) ng/mL NT-Pro-B Natriuret Pep pg/mL Total Protein (6.3-8.2) g/dL Albumin (3.5-5.0) g/dL Disposition <Joelle Garrett - Last Filed: 09/30/23 10:07> <Lety Lemus - Last Filed: 10/02/23 12:00> Clinical Impression: Right-sided chest pain, Shortness of breath Disposition: ADMITTED IP TO THIS HOSP
--- NOTE | 2023-09-29 17:37 | XR ---
EXAMINATION TYPE: XR chest 2V DATE OF EXAM: 09/29/2023 COMPARISON: 05/29/2022 HISTORY: 82-year-old male difficulty in breathing, shortness of breath TECHNIQUE: PA and lateral views FINDINGS: Normal size. Mild tortuosity/ectasia of the thoracic aorta is unchanged. Mild interstitial prominence is unchanged. No consolidation or pleural effusion. Mild hyperinflation. IMPRESSION: Possible underlying COPD. Clinically correlate. No acute process seen.
[2023-09-29 17:58] LABS: Basophils % (A) 1 %; Eosinophils # (A) 0.1 k/uL (0-0.7); Eosinophils % (A) 3 %; HCT 42.7 % (39.0-53.0); HGB 13.9 gm/dL (13.0-17.5); Lymphocytes # (A) 1.5 k/uL (1.0-4.8); Lymphocytes % (A) 28 %; MCHC 32.5 g/dL (31.0-37.0); MCV 98.6 fL (80.0-100.0); Mean Platelet Volume 7.4; Monocytes # (A) 0.4 k/uL (0-1.0); Monocytes % (A) 7 %; Neutrophils # (A) 3.2 k/uL (1.3-7.7); Neutrophils % (A) 60 %; Platelet Count 246 k/uL (150-450); RBC 4.33 m/uL (4.30-5.90); RDW 12.9 % (11.5-15.5); WBC 5.4 k/uL (3.8-10.6)
[2023-09-29 18:11] LABS: ALT 16 U/L (4-49); AST 23 U/L (17-59); African American GFR (CKD) 38 (>60 ml/min/1.73 sqM); Albumin 4.5 g/dL (3.5-5.0); Alkaline Phosphatase 47 U/L (38-126); Anion Gap 9 mmol/L; Blood Urea Nitrogen 32 mg/dL (9-20); Calcium 9.7 mg/dL (8.4-10.2); Carbon Dioxide 21 mmol/L (22-30); Chloride 109 mmol/L (98-107); Glucose 178 mg/dL (74-99); Non-African American GFR(CKD) 33 (>60 ml/min/1.73 sqM); Potassium 4.2 mmol/L (3.5-5.1); Sodium 139 mmol/L (137-145); Total Bilirubin 0.6 mg/dL (0.2-1.3)
[2023-09-29 18:20] LABS: NT-Pro-B-Type Natriuretic Pept 258 pg/mL
[2023-09-29 18:55] LABS: INR 0.9 (<1.2); Partial Thromboplastin Time 23.2 sec (22.0-30.0); Prothrombin Time 10.4 sec (10.0-12.5)
[2023-09-29] MEDS: SODIUM CHLORIDE 0.9% 1,000 ML IV STA (19:47)
[2023-09-29 20:02] LABS: VBG PH 7.37 (7.31-7.41)
--- NOTE | 2023-09-29 20:40 | CT ---
EXAMINATION TYPE: CT brain wo con DATE OF EXAM: 09/29/2023 COMPARISON: None HISTORY: 82-year-old male with vision changes, assess for metastases, history of bladder ca TECHNIQUE: Examination was done in axial plane without intravenous contrast. Coronal and sagittal r econstructions performed. CT DLP: 1176.2 mGycm Automated exposure control for dose reduction was used. FINDINGS: There is no evidence of acute intracranial hemorrhage, acute ischemic changes, mass, mass-effect, or extra-axial fluid collection. There is no effacement of cerebral sulci or basal subarachnoid cister ns. There is [id number] ventriculomegaly, Cecil's ratio calculated at 0.35. There is no midline shift. Olvera-white matter distinction is preserved. Atherosclerotic calcifications in the carotid siphons. Lobulated mucosal thickening floor of the right maxillary sinus. Trace mucosal thickening ethmoid air cells. Mastoid air cells are well pneumatized. Orbits and globes are intact. IMPRESSION: 1. Mild hydrocephalus may be on an ex vacuo basis relating to central cerebral atrophy. Correlate to exclude a component of NPH. 2. Otherwise, no acute intracranial abnormality seen. If persistent concern, consider contrast-enhanc ed MRI for more sensitive evaluation.
--- NOTE | 2023-09-29 20:47 | CT ---
EXAMINATION TYPE: CT chest angio for PE DATE OF EXAM: 09/29/2023 and 06/14/2021 COMPARISON: Radiograph same day and prior CT abdomen 06/20/2023 HISTORY: 82-year-old male shortness of breath, bladder CA/ LALO TECHNIQUE: Contiguous axial scanning of the chest performed with IV Contrast, patient injected with 8 0 mL of Isovue 370. Coronal and sagittal MIP reconstructions performed. CT DLP: 401.8 mGycm Automated exposure control for dose reduction was used. FINDINGS: The heart is normal size without pericardial effusion. No flattening of the interventricular septum o r reflux of contrast into the hepatic veins. Extensive LAD and circumflex coronary artery calcificati ons are present. Mild aneurysm ascending aorta at 4.0 cm. Scattered mild atherosclerotic calcifications throughout the thoracic aorta. Bovine configuration to the aortic arch along with a aberrant direct takeoff of the left vertebral artery directly from the arch. Ectatic descending thoracic aorta 3.5 cm. Mass in lower descending thoracic aorta mildly aneurysmal to 3.1 cm. Large caliber to the main right and left pulmonary arteries measuring up to 2.9 cm suggesting underly ing pulmonary hypertension. No evidence for volvulus. Some incidental calcified pleural plaques noted along the posterior left mid chest as well as the ant erior right mid chest. No consolidation or pleural effusion. 4 mm subpleural pulmonary nodule posterior left lower lobe, axial image 100, unchanged. Some mild int erstitial scarring in the lower lungs Some focal chronic pleural thickening along the minor fissure, axial image 85. Visualized upper abdomen shows cystic changer right kidney measuring up to 7.5 cm. Moderate atheroscl erotic calcifications visualized upper abdominal aorta. Left kidney is absent. Bones: Moderate degenerative disc disease mid thoracic spine with accentuated thoracic kyphosis. 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 IMPRESSION: 1. CORRELATE FOR UNDERLYING PULMONARY ARTERIAL HYPERTENSION. NO EVIDENCE FOR PULMONARY EMBOLUS. 2. PROMINENT LAD AND CIRCUMFLEX CORONARY ARTERY CALCIFICATIONS. 3. MILD ANEURYSM ASCENDING AORTA AND 4.0 CM. 4. A FEW SCATTERED CALCIFIED PLEURAL PLAQUES. CORRELATE FOR ANY HISTORY OF PRIOR ASBESTOS EXPOSURE.
[2023-09-29] MEDS: ALPRAZolam 0.5 MG TAB PO STA (22:12)
[2023-09-29] MEDS: carvediloL 6.25 MG TAB PO STA (22:12)
[2023-09-29] MEDS ORDERED: traMADol 50 MG TAB PO PRN (22:30)
[2023-09-29] MEDS ORDERED: ACETAMINOPHEN TAB 325 MG TAB PO PRN (22:30)
[2023-09-29] MEDS ORDERED: NALOXONE 0.4 MG/ML 1 ML VIAL IV PRN (22:30)
[2023-09-30] MEDS: FAMOTIDINE 20 MG TAB PO SCH (09:20)
[2023-09-30] MEDS: ALPRAZolam 0.5 MG TAB PO PRN (09:20)
[2023-09-30] MEDS: carvediloL 6.25 MG TAB PO SCH (09:20)
--- NOTE | 2023-09-30 11:13 | P.HPIM ---
History of Present Illness H&P Date: 09/30/23 This is an 82-year-old male patient who presented to the ER with complaints of increased cough and chest pain. Patient reports this has been an ongoing issue that has increased over the past few days. Patient has past medical history of bladder cancer in which he follows with urology services, diabetes mellitus and anxiety. Chest x-ray completed showing possible underlying COPD clinically correlate no acute process seen. Head CT completed showing mild hydrocephalus may be an ex vacuo basis relating to central sacral atrophy correlate to exclude a component of NPH. Otherwise no acute intracranial abnormality seen if persistent concern consider can contrast enhanced MRI for more sensitive evaluation. CTA completed showing underlying pulmonary arterial hypertension no evidence for pulmonary embolus. Prominent LAD and circumflex coronary artery calcifications mild aneurysm ascending aorta a few scattered calcified pleural plaques. Troponins negative x 3. Creatinine 1.88 bun 32 which does appear chronic for patient. Patient negative for influenza RSV and COVID-19. At this time patient will be admitted pulmonary neurology and urology services will be consulted. At this time patient complains of some coughing. Patient denies chest pain or shortness of breath at this time patient denies nausea vomiting or diarrhea. Patient denies any urinary burning or frequency Review of Systems Please refer to HPI otherwise unremarkable Past Medical History Past Medical History: Cancer, Diabetes Mellitus Additional Past Medical History / Comment(s): stress test done one month ago, bladder cancer diagnosed 02/2021 History of Any Multi-Drug Resistant Organisms: None Reported Past Surgical History: Bladder Surgery Additional Past Surgical History / Comment(s): tumors removed from bladder, colonoscopy Past Anesthesia/Blood Transfusion Reactions: No Reported Reaction Past Psychological History: Anxiety Smoking Status: Former smoker Past Alcohol Use History: None Reported Past Drug Use History: None Reported Medications and Allergies Home Medications Medication Instructions Recorded Confirmed Type ALPRAZolam [Xanax] 0.5 mg PO BID PRN 06/13/21 09/29/23 History glipiZIDE [Glucotrol] 5 mg PO BID 06/13/21 09/29/23 History Ergocalciferol (Vitamin D2) 1,250 mcg PO Q14D 09/29/23 09/29/23 History [Drisdol (50,000 Iu)] HYDROcodone/APAP 7.5-325MG [[place] 1 tab PO Q8H PRN 09/29/23 09/29/23 History 7.5-325] carvediloL [Coreg] 6.25 mg PO BID-W/MEALS 09/29/23 09/29/23 History Allergies Allergy/AdvReac Type Severity Reaction Status Date / Time bee venom protein (honey bee) Allergy Anaphylaxis Verified 09/29/23 20:42 Physical Exam Vitals: Vital Signs Temp Pulse Resp BP Pulse Ox 09/30/23 09:15 56 L 18 186/90 99 09/30/23 06:57 50 L 18 169/77 96 09/30/23 02:16 57 L 18 147/80 97 09/29/23 22:08 78 20 190/84 98 09/29/23 21:00 53 L 18 184/102 99 09/29/23 19:02 56 L 18 181/96 99 09/29/23 16:29 98.2 F 79 18 128/83 98 Intake and Output 09/29/23 09/30/23 09/30/23 22:59 06:59 14:59 Other: Weight 86.183 kg Head normocephalic Neck supple Lungs clear to auscultation bilaterally no wheezing or crackles Heart regular rate and rhythm S1-S2, no rub or gallop Abdomen is soft nontender nondistended positive bowel sounds no hepatosplenomegaly Extremities no edema Neuro alert and orientated to 3 Results CBC & Chem 7: 09/29/23 17:29 09/29/23 17:29 Labs: Abnormal Lab Results - Last 24 Hours (Table) 09/29/23 Range/Units 17:29 Chloride 109 H (98-107) mmol/L Carbon Dioxide 21 L (22-30) mmol/L BUN 32 H (9-20) mg/dL Creatinine 1.88 H (0.66-1.25) mg/dL Glucose 178 H (74-99) mg/dL Assessment and Plan Assessment: 1. cough with chest discomfort. 2. History of bladder cancer 3. Abnormal head CT 4. History of diabetes mellitus 5. History of anxiety disorder 6. Chronic kidney disease 7. History of BPH DVT prophylaxis Lovenox. GI prophylaxis Protonix neurology, pulmonary and urinary urology services consulted Repeat labs ordered Time with Patient: Greater than 30 (Greater than 60% of the total time spent in counseling and coordination of care)
--- NOTE | 2023-09-30 14:17 | P.CNNES ---
History of Present Illness Consult date: 09/30/23 Requesting physician: Tatum Hardy Reason for Consult: abnormal head CT head History of Present Illness: This is a 82 year-old gentleman wih presents to the emergency department for "difficulty breathing". Neurology is consulted for abnormal CT head. The CT head head shows ex vacuo basis on central cerebral atrophy but to exclude NPH. Patient denies any falls, unsteady gait, confusion, urinary incontinence. Patient states he comes for difficulty breathing with cough. It seems the patient has history of stage 4 bladder cancer. He also has history of DM. Some of the work-up consisted of: I reviewed labs CT head as stated above. I personally reviewed CT head and do agree there is dilation of the ventricles but feel more due to central atrophy. Review of Systems The positive and negative as per HPI. Past Medical History Past Medical History: Cancer, Diabetes Mellitus Additional Past Medical History / Comment(s): stress test done one month ago, bladder cancer diagnosed 02/2021 History of Any Multi-Drug Resistant Organisms: None Reported Past Surgical History: Bladder Surgery Additional Past Surgical History / Comment(s): tumors removed from bladder, colonoscopy Past Anesthesia/Blood Transfusion Reactions: No Reported Reaction Past Psychological History: Anxiety Smoking Status: Former smoker Past Alcohol Use History: None Reported Past Drug Use History: None Reported Medications and Allergies Home Medications Medication Instructions Recorded Confirmed Type ALPRAZolam [Xanax] 0.5 mg PO BID PRN 06/13/21 09/29/23 History glipiZIDE [Glucotrol] 5 mg PO BID 06/13/21 09/29/23 History Ergocalciferol (Vitamin D2) 1,250 mcg PO Q14D 09/29/23 09/29/23 History [Drisdol (50,000 Iu)] HYDROcodone/APAP 7.5-325MG [[place] 1 tab PO Q8H PRN 09/29/23 09/29/23 History 7.5-325] carvediloL [Coreg] 6.25 mg PO BID-W/MEALS 09/29/23 09/29/23 History Allergies Allergy/AdvReac Type Severity Reaction Status Date / Time bee venom protein (honey bee) Allergy Anaphylaxis Verified 09/29/23 20:42 Physical Examination - Vital Signs Vital Signs: Vital Signs Temp Pulse Resp BP Pulse Ox 09/30/23 12:17 51 L 18 164/99 99 09/30/23 09:15 56 L 18 186/90 99 09/30/23 06:57 50 L 18 169/77 96 09/30/23 02:16 57 L 18 147/80 97 09/29/23 22:08 78 20 190/84 98 09/29/23 21:00 53 L 18 184/102 99 09/29/23 19:02 56 L 18 181/96 99 09/29/23 16:29 98.2 F 79 18 128/83 98 Intake and Output 09/29/23 09/30/23 09/30/23 22:59 06:59 14:59 Other: Weight 86.183 kg GENERAL: The patient is lying in bed and is not in acute distress. NEUROLOGICAL: Higher mental function: The patient is awake, alert, oriented to self, place and time. Patient is following commands. No aphasia and no neglect. Cranial nerves: The pupils are round, equal and reactive to light and accommodation. Visual valdez are full to confrontation throughout. Extraocular movement is intact no nystagmus is noted. Facial sensation is normal to touch throughout. The facial strength is normal throughout. Hearing is normal bilaterally to hand rub. Tongue is midline and moved [id number] without any difficulty. No dysarthria is noted. Shoulder shrug is normal bilaterally. Motor: Gait is normal. The strength is 5 over 5 throughout. Normal tone and bulk. Cerebellum: Normal finger to nose heel to guerrero bilaterally. Sensation: Sensation is normal to touch throughout. Reflexes (right/left): 2+ throughout. Plantars are downgoing bilaterally. Results - Laboratory Findings CBC and BMP: 09/29/23 17:29 09/29/23 17:29 Abnormal Lab Findings: Abnormal Labs 09/29/23 17:29 Chloride 109 H Carbon Dioxide 21 L BUN 32 H Creatinine 1.88 H Glucose 178 H Assessment and Plan Assessment: This is an 82-year-old gentleman history of stage IV bladder cancer, diabetes mellitus who present emergency department because of dyspnea. He had a CT of the head which showed dilation of the ventricles possibly suggestive of central cerebral atrophy but normal pressure hydrocephalus cannot be excluded therefore neurology team was consulted. Patient denies any falls, unsteady gait, any confusion and bladder issues. Dyspnea Dilation of the ventricle seen on the CT of the head seems more central cerebral atrophy. Patient denies any falls, unsteady gait, confusion or any bladder issues to suggest of normal pressure hydrocephalus clinically. DM History of Stage IV bladder cancer Plan: I recommend the patient to follow-up with neurologist as outpatient for further evaluation. 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 Will defer the rest of medical management to primary and other specialist. Otherwise no additional neurological work-up. Will sign off. Please reconsult if needed. Time with Patient: Greater than 30
--- NOTE | 2023-09-30 16:03 | P.CNPUL ---
History of Present Illness Consult date: 09/30/23 Requesting physician: Tatum Hardy Reason for consult: dyspnea, cough, COPD Chief complaint: Shortness of breath, cough, hemoptysis. History of present illness: Pulmonary consult dated September 30, 2023. 82-year-old male who presents to the emergency department on September 28, complaining of shortness of breath, and chest pain. The patient has a history of advanced bladder cancer, and sees Dr. Morales, here in town. The patient presents with pain in the chest, primarily on the right side, cough, and streaky hemoptysis. The hemoptysis is intermittent. The patient was a heavy smoker in the past, does not smoke currently. In addition to bladder cancer, he apparently has a history of hypertension, diabetes, and may have underlying COPD. He does not see a lung doctor currently. He quit smoking about 5 years ago. The patient also complains of difficulty in swallowing. He apparently recently saw Dr. Hughes, who did a scope, but he is not sure whether or not there is anything abnormal found. Because of his hemoptysis, the patient will undergo bronchoscopy tomorrow. His labs include a white count of 5.4, hemoglobin 13.9, hematocrit 42.5, and a platelet count of 246,000. PT/INR and PTT are all normal. Venous blood gas was normal. Sodium 139, potassium 4.2, chlorides 109, CO2 21, BUN 32, creatinine 1.88. Glucose was 178. Troponins were negative x 3. N-terminal proBNP was normal. He tested negative for influenza, RSV, and coronavirus. Chest x-ray was consistent with COPD. CT angiogram was negative for PE, and showed a few scattered calcified pleural plaques, consistent with previous asbestos exposure. Review of Systems REVIEW OF SYSTEMS: CONSTITUTIONAL: [Negative.] NEUROLOGIC: [ Negative.] HEENT: [ Negative.] CARDIAC: [Negative.] PULMONARY: Shortness of breath, cough, hemoptysis. GI: [Negative.] : [Negative.] RHEUMATOLOGIC: [ Negative.] IMMUNOLOGIC: [ Negative.] ENDOCRINE: [Negative. ] DERMATOLOGIC: [Negative.] Past Medical History Past Medical History: Cancer, Diabetes Mellitus Additional Past Medical History / Comment(s): stress test done one month ago, bladder cancer diagnosed 02/2021 History of Any Multi-Drug Resistant Organisms: None Reported Past Surgical History: Bladder Surgery Additional Past Surgical History / Comment(s): tumors removed from bladder, colonoscopy Past Anesthesia/Blood Transfusion Reactions: No Reported Reaction Past Psychological History: Anxiety Smoking Status: Former smoker Past Alcohol Use History: None Reported Past Drug Use History: None Reported Medications and Allergies Home Medications Medication Instructions Recorded Confirmed Type ALPRAZolam [Xanax] 0.5 mg PO BID PRN 06/13/21 09/29/23 History glipiZIDE [Glucotrol] 5 mg PO BID 06/13/21 09/29/23 History Ergocalciferol (Vitamin D2) 1,250 mcg PO Q14D 09/29/23 09/29/23 History [Drisdol (50,000 Iu)] HYDROcodone/APAP 7.5-325MG [[place] 1 tab PO Q8H PRN 09/29/23 09/29/23 History 7.5-325] carvediloL [Coreg] 6.25 mg PO BID-W/MEALS 09/29/23 09/29/23 History Allergies Allergy/AdvReac Type Severity Reaction Status Date / Time bee venom protein (honey bee) Allergy Anaphylaxis Verified 09/29/23 20:42 Physical Exam Osteopathic Statement: *. No significant issues noted on an osteopathic structural exam other than those noted in the History and Physical/Consult. Vitals: Vital Signs Temp Pulse Resp BP Pulse Ox 09/30/23 14:00 56 L 18 161/82 95 09/30/23 12:17 51 L 18 164/99 99 09/30/23 09:15 56 L 18 186/90 99 09/30/23 06:57 50 L 18 169/77 96 09/30/23 02:16 57 L 18 147/80 97 09/29/23 22:08 78 20 190/84 98 09/29/23 21:00 53 L 18 184/102 99 09/29/23 19:02 56 L 18 181/96 99 09/29/23 16:29 98.2 F 79 18 128/83 98 No acute distress, oriented 3. Room air saturation is 95%. HEENT examination is grossly unremarkable. Mucous membranes are moist. No oral lesions. Neck supple. Full range of motion. No adenopathy thyromegaly or neck vein distention. Cardiovascular examination reveals regular rhythm rate. S1-S2 normal. No S3 or S4. No discernible murmur noted. Heart rate 56 bpm. Lungs reveal scattered mild rhonchi. No wheezes or crackles. Saturation is 95% on room air. Abdomen soft bowel sounds are heard. No masses or tenderness. Extremities are intact. No cyanosis clubbing or edema. Skin is without rash or lesion. Neurologic examination is brief but nonfocal. Results - Laboratory Findings CBC and BMP: 09/29/23 17:29 09/29/23 17: PT/INR, D-dimer PT 10.4 sec (10.0-12.5) 09/29/23 17: INR 0.9 (<1.2) 09/29/23 17: Abnormal lab findings: Abnormal Labs 09/29/23 17: Chloride 109 H Carbon Dioxide 21 L BUN 32 H Creatinine 1.88 H Glucose 178 H - Diagnostic Findings Chest x-ray: image reviewed CT scan - chest: image reviewed Assessment and Plan Assessment: Intermittent hemoptysis, in a patient with prior tobacco history and possible underlying COPD. History of advanced bladder cancer. History of hypertension. History of dysphagia. History of diabetes mellitus. Plan: Plan dated September 30, 2023. The patient came into the hospital complaining of shortness of breath, cough, and hemoptysis. The patient will be scheduled for bronchoscopy and airway examination tomorrow. The patient does have a substantial smoking history. He also has a prior history of asbestos exposure, and asbestos associated pleural plaques seen on his CAT scan. Labs, x-rays, and medications are reviewed. Additional recommendations and suggestions to follow. Time with Patient: Greater than 30
[2023-09-30 22:42] LABS: Glucose,Whole Blood 150 mg/dL (70-110)
[2023-10-01 06:21] LABS: Glucose,Whole Blood 128 mg/dL (70-110)
[2023-10-01] MEDS: PANTOPRAZOLE 40 MG TABLET PO SCH (06:44)
--- NOTE | 2023-10-01 09:01 | P.GSCN ---
History of Present Illness Consult date: 10/01/23 Reason for Consult: Bladder Cancer Requesting physician: Tatum Hardy History of present illness: Patient is an 82-year-old white male well-known to me. He presented in February 2021 with gross hematuria and was found to have a bladder tumor. He underwent resection in March 2021, revealing high-grade urothelial carcinoma with lamina propria invasion. He was treated with a 6-week course of intravesical gemcitabine, followed by maintenance therapy. He has had no recurrences. His most recent cystoscopy was performed on June 17, 2023. He subsequently underwent a CT scan which showed no evidence of upper tract disease. He is currently admitted for evaluation of chest pain. He denies dysuria and hematuria. He states that his stream is not particularly strong but he is not experiencing difficulty voiding. Review of Systems - Respiratory Reports hemoptysis - Genitourinary Denies dysuria, Denies flank pain, Denies hematuria Past Medical History Past Medical History: Cancer, Diabetes Mellitus Additional Past Medical History / Comment(s): stress test done one month ago, bladder cancer diagnosed 02/2021 History of Any Multi-Drug Resistant Organisms: None Reported Past Surgical History: Bladder Surgery Additional Past Surgical History / Comment(s): tumors removed from bladder, col onoscopy, EGD Past Anesthesia/Blood Transfusion Reactions: No Reported Reaction Past Psychological History: Anxiety Smoking Status: Former smoker Past Alcohol Use History: None Reported Additional Past Alcohol Use History / Comment(s): 2020 quit smoking Past Drug Use History: None Reported Medications and Allergies Home Medications Medication Instructions Recorded Confirmed Type ALPRAZolam [Xanax] 0.5 mg PO BID PRN 06/13/21 09/29/23 History glipiZIDE [Glucotrol] 5 mg PO BID 06/13/21 09/29/23 History Ergocalciferol (Vitamin D2) 1,250 mcg PO Q14D 09/29/23 09/29/23 History [Drisdol (50,000 Iu)] HYDROcodone/APAP 7.5-325MG [[place] 1 tab PO Q8H PRN 09/29/23 09/29/23 History 7.5-325] carvediloL [Coreg] 6.25 mg PO BID-W/MEALS 09/29/23 09/29/23 History Allergies Allergy/AdvReac Type Severity Reaction Status Date / Time bee venom protein (honey bee) Allergy Anaphylaxis Verified 10/01/23 08:06 Surgical - Exam Vital Signs Temp Pulse Resp BP Pulse Ox 98.2 F 79 18 128/83 98 09/29/23 16:29 09/29/23 16:29 09/29/23 16:29 09/29/23 16:29 09/29/23 16:29 - General well developed, well nourished, no distress - Respiratory normal respiratory effort - Abdomen Abdomen: soft, non tender, no guarding, no rigid, no rebound - Psychiatric oriented to time, oriented to person, oriented to place, speech is normal, memory intact Results - Labs 09/29/23 17:29 09/29/23 17:29 Abnormal Lab Results - Last 24 Hours (Table) 09/30/23 10/01/23 Range/Units 22:40 06:20 POC Glucose (mg/dL) 150 H 128 H (70-110) mg/dL Assessment and Plan (1) Bladder cancer Current Visit: No Status: Acute Code(s): C67.9 - MALIGNANT NEOPLASM OF BLADDER, UNSPECIFIED SNOMED Code(s): 417285917 Plan: At this time, there is no evidence of recurrent bladder cancer and it is my impression that his current symptomatology is unrelated to his history of bladder cancer. He is scheduled to undergo repeat cystoscopy in June 2024. Please notify me if I can be of any further assistance.
[2023-10-01] MEDS: FAMOTIDINE 20 MG TAB PO SCH (09:04)
[2023-10-01] MEDS: ENOXAPARIN 40 MG/0.4 ML SYRINGE SQ SCH (09:04)
[2023-10-01] MEDS ORDERED: DEXTROSE 50% SYRINGE 50 ML IVP PRN ×2 (10:43)
--- NOTE | 2023-10-01 10:49 | P.PN ---
Subjective Progress Note Date: 10/01/23 This is an 82-year-old male patient who presented to the ER with complaints of increased cough and chest pain. Patient reports this has been an ongoing issue that has increased over the past few days. Patient has past medical history of bladder cancer in which he follows with urology services, diabetes mellitus and anxiety. Chest x-ray completed showing possible underlying COPD clinically correlate no acute process seen. Head CT completed showing mild hydrocephalus may be an ex vacuo basis relating to central sacral atrophy correlate to exclude a component of NPH. Otherwise no acute intracranial abnormality seen if persistent concern consider can contrast enhanced MRI for more sensitive gita luation. CTA completed showing underlying pulmonary arterial hypertension no evidence for pulmonary embolus. Prominent LAD and circumflex coronary artery calcifications mild aneurysm ascending aorta a few scattered calcified pleural plaques. Troponins negative x 3. Creatinine 1.88 bun 32 which does appear chronic for patient. Patient negative for influenza RSV and COVID-19. At this time patient will be admitted pulmonary neurology and urology services will be consulted. At this time patient complains of some coughing. Patient denies chest pain or shortness of breath at this time patient denies nausea vomiting or diarrhea. Patient denies any urinary burning or frequency On 10/01/2023 patient is alert and oriented x 3.10/01/2023 patient is alert and oriented 3. Plans today for bronchoscopy per pulmonary services. Plans today for bronchoscopy per pulmonary services. Neurology service is recommending follow-up outpatient Neurology service is recommending follow-up outpatient.. Patient denies chest pain or shortness of breath. Patient denies nausea vomiting or diarrhea. Patient denies any urinary burning or frequency Patient denies chest pain or shortness of breath. Patient denies nausea vomiting or diarrhea. Denies any urinary burning or frequency. Current vital signs Temp 98.0, heart rate 60, respiratory rate 17, blood pressure 148/81 with a pulse ox of 98% on room air Objective - Vital Signs Vital signs: Vital Signs Temp 98.0 F 10/01/23 06:49 Pulse 60 10/01/23 06:49 Resp 17 10/01/23 09:04 BP 174/90 10/01/23 06:49 Pulse Ox 96 10/01/23 06:49 FiO2 Intake & Output 09/30/23 10/01/23 10/01/23 18:59 06:59 18:59 Intake Total 118 Balance 118 Weight 86.183 kg Intake: Oral 118 Other: Voiding Method Toilet Toilet # Voids 2 - Exam Head normocephalic Neck supple Lungs clear to auscultation bilaterally no wheezing or crackles Heart regular rate and rhythm S1-S2, no rub or gallop Abdomen is soft nontender nondistended positive bowel sounds no hepatosplenomegaly Extremities no edema Neuro alert and orientated to 3 - Labs CBC & Chem 7: 09/29/23 17:29 09/29/23 17:29 Labs: Abnormal Lab Results - Last 24 Hours (Table) 09/30/23 10/01/23 Range/Units 22:40 06:20 POC Glucose (mg/dL) 150 H 128 H (70-110) mg/dL Assessment and Plan Assessment: 1. cough with chest discomfort. 2. History of bladder cancer. Per urology services no evidence of recurrent bladder cancer patient has scheduled repeat cystoscopy in June 2024 repeat cystoscopy 3. Abnormal head CT. Per neurology services patient to follow-up outpatientper neurology service is patient to follow-up outpatient 4. History of diabetes mellitus 5. History of anxiety disorder 6. Chronic kidney disease 7. History of BPH DVT prophylaxis Lovenox. GI prophylaxis Protonix neurology, pulmonary and urinary urology services consulted Bronchoscopy planned today 10/01/2023 Repeat labs ordered
[2023-10-01 10:56] LABS: Basophils # (A) 0.07 X 10*3/uL (0.00-0.10); Basophils % (A) 1.1 %; Eosinophils # (A) 0.26 X 10*3/uL (0.04-0.35); Eosinophils % (A) 3.9 %; HCT 39.5 % (39.6-50.0); HGB 13.3 g/dL (13.0-17.0); Lymphocytes # (A) 2.31 X 10*3/uL (0.90-5.00); Lymphocytes % (A) 34.8 %; MCH 31.9 pg (27.0-32.0); MCHC 33.7 g/dL (32.0-37.0); MCV 94.7 FL (80.0-97.0); Mean Platelet Volume 9.7 FL (9.5-12.2); Monocytes # (A) 0.68 X 10*3/uL (0.20-1.00); Monocytes % (A) 10.3 %; NRBC Per 100 WBC 0 X 10*3/uL (0.00-0.01); Neutrophils # (A) 3.28 X 10*3/uL (1.80-7.70); Neutrophils % (A) 49.4 %; Platelet Count 226 X 10*3/uL (140-440); RBC 4.17 X 10*6/uL (4.40-5.60); RDW 12.9 % (11.5-14.5); WBC 6.63 X 10*3/uL (4.50-10.00)
[2023-10-01 11:03] LABS: ALT 14 U/L (10-49); AST 18 U/L (14-35); Albumin 4.4 g/dL (3.8-4.9); Albumin/Globulin Ratio 1.91 Ratio (1.60-3.17); Alkaline Phosphatase 50 U/L (41-126); BUN/Creat Ratio 13.65 Ratio (12.00-20.00); Blood Urea Nitrogen 27.3 mg/dL (9.0-27.0); Calcium 9.2 mg/dL (8.7-10.3); Chloride 107 mmol/L (96-109); Globulin 2.3 g/dL (1.6-3.3); Glucose 128 mg/dL (70-110); Potassium 4.4 mmol/L (3.5-5.5); Sodium 140 mmol/L (135-145); Total Bilirubin 0.3 mg/dL (0.3-1.2); Total Protein 6.7 g/dL (6.2-8.2)
[2023-10-01 11:52] LABS: Glucose,Whole Blood 124 mg/dL (70-110)
[2023-10-01] MEDS: INSULIN ASPART (NovoLOG) 100 UNIT/ML VIAL SQ SCH (11:55)
[2023-10-01] MEDS ORDERED: MIDAZOLAM 2 MG/2 ML VIAL ONE (13:35)
[2023-10-01] MEDS ORDERED: KETAMINE HCL IN 0.9 % NACL 50 MG/5 ML SYRINGE ONE (13:35)
[2023-10-01] MEDS ORDERED: GLYCOPYRROLATE 0.2 MG/ML 2 ML VIAL ONE (13:35)
[2023-10-01] MEDS ORDERED: PROPOFOL 10 MG/ML 20 ML VIAL IV ONE (13:35)
[2023-10-01] MEDS: SODIUM CHLORIDE 0.9% 500 ML 500 ML IV ONE ×2 (13:40→13:50)
[2023-10-01] MEDS: LIDOCAINE 2% INJ 20 MG/ML INTRATRACH ONE ×2 (13:43→13:48)
--- NOTE | 2023-10-01 14:24 | PCN ---
PROCEDURE NOTE PROCEDURES PERFORMED: Bronchoscopy, airway examination, therapeutic lavage, BAL right middle lobe. PREOPERATIVE DIAGNOSIS: Hemoptysis. POSTOPERATIVE DIAGNOSIS: Hemoptysis. DESCRIPTION OF PROCEDURE: Anesthesia provided, monitored anesthesia care. The patient's procedure was done in room #1 in [facility], there was informed consent and universal timeout. ATOMIC PHYSICS TEACHER: Dr. Drake. ALUMINUM CONTAINER TESTER: Dr. Muriel Villafana. DESCRIPTION OF PROCEDURE: After the patient was adequately sedated and being fully monitored, the bronchoscope was inserted through the right nostril. It passed through the right nasopharynx into the oropharynx. The hypopharynx was identified. The hypopharyngeal structures, including anterior commissure, true cords, false cords, arytenoids, piriform sinuses, right and left, and vallecula, all appeared relatively normal. The glottic opening was topicalized. The bronchoscope was pushed through the glottic opening into the trachea. The trachea appeared normal. Tracheal john was sharp. The right and left mainstem were topicalized. The right upper lobe and its 3 segments, right middle lobe and its 2 segments, right lower lobe and its 5 segments, left upper lobe proper and its 2 segments, lingula and its 2 segments, left lower lobe and its 4 segments, all appeared relatively normal. There was [id number] bronchitis. There was no definitive mass or tumor. The airways were otherwise relatively normal. There were some frothy secretions, not much. The patient tolerated the procedure well thus far. The bronchoscope was then wedged into the right middle lobe. A formal BAL was done. Thirty mL of fluid was recovered. The fluid will be sent for analysis including cytology, and microbiology. Afterwards, the bronchoscope was withdrawn. There were no immediate complications. The patient tolerated the procedure well. MMODL / IJN: [id number] /
--- NOTE | 2023-10-01 14:37 | P.PN ---
Subjective Progress Note Date: 10/01/23 82-year-old male who presents to the emergency department on September 28, complaining of shortness of breath, and chest pain. The patient has a history of advanced bladder cancer, and sees Dr. Morales, here in [facility]. The patient presents with pain in the chest, primarily on the right side, cough, and streaky hemoptysis. The hemoptysis is intermittent. The patient was a heavy smoker in the past, does not smoke currently. In addition to bladder cancer, he apparently has a history of hypertension, diabetes, and may have underlying COPD. He does not see a lung doctor currently. He quit smoking about 5 years ago. The patient also complains of difficulty in swallowing. He apparently recently saw Dr. Hughes, who did a scope, but he is not sure whether or not there is anything abnormal found. Because of his hemoptysis, the patient will undergo bronchoscopy tomorrow. His labs include a white count of 5.4, hemoglobin 13.9, hematocrit 42.5, and a platelet count of 246,000. PT/INR and PTT are all n ormal. Venous blood gas was normal. Sodium 139, potassium 4.2, chlorides 109, CO2 21, BUN 32, creatinine 1.88. Glucose was 178. Troponins were negative x 3. N-terminal proBNP was normal. He tested negative for influenza, RSV, and coronavirus. Chest x-ray was consistent with COPD. CT angiogram was negative for PE, and showed a few scattered calcified pleural plaques, consistent with previous asbestos exposure. The patient is seen today October 01, 2023 in follow-up on the regular medical fl oor. He is awake and alert in no acute distress. Resting quite comfortably in bed. Maintaining good O2 saturations in the 90s on room air. Has been afebrile. He has not had any further episodes of hemoptysis or blood-tinged sputum. Plan is for bronchoscopy with BAL today. White count 6.6. Hemoglobin 13.3. Platelets 226. Sodium 140. Potassium 4.4. Bicarb 22. BUN 27. Creatinine 2.0. Glucose 128. He is somewhat hypertensive. Objective - Vital Signs Vital signs: Vital Signs Temp 98.0 F 10/01/23 06:49 Pulse 60 10/01/23 06:49 Resp 17 10/01/23 09:04 BP 174/90 10/01/23 06:49 Pulse Ox 96 10/01/23 06:49 FiO2 Intake & Output 09/30/23 10/01/23 10/01/23 18:59 06:59 18:59 Intake Total 118 200 Balance 118 200 Weight 86.183 kg Intake: IV 200 Oral 118 0 Other: Voiding Method Toilet Toilet # Voids 2 - Exam GENERAL EXAM: Alert, active, 82-year-old male patient, on room air, comfortable in no apparent distress. HEAD: Normocephalic. EYES: Normal reaction of pupils, equal size. NOSE: Clear with pink turbinates. THROAT: No erythema or exudates. NECK: No masses, no JVD. CHEST: No chest wall deformity. LUNGS: Equal air entry with no crackles, wheeze, rhonchi or dullness. CVS: S1 and S2 normal with no audible murmur, regular rhythm. ABDOMEN: No hepatosplenomegaly, normal bowel sounds, no guarding or rigidity. SPINE: No scoliosis or deformity SKIN: No rashes CENTRAL NERVOUS SYSTEM: No focal deficits, tone is normal in all 4 extremities. EXTREMITIES: There is no peripheral edema. No clubbing, no cyanosis. Peripheral pulses are intact. - Labs CBC & Chem 7: 10/01/23 06:35 10/01/23 06:35 Labs: Abnormal Lab Results - Last 24 Hours (Table) 09/30/23 10/01/23 10/01/23 Range/Units 22:40 06:20 06:35 RBC 4.17 L (4.40-5.60) X 10*6/uL Hct 39.5 L (39.6-50.0) % BUN (9.0-27.0) mg/dL Creatinine (0.6-1.5) mg/dL Est GFR (CKD-EPI) (>=60) Glucose (70-110) mg/dL POC Glucose (mg/dL) 150 H 128 H (70-110) mg/dL 10/01/23 10/01/23 Range/Units 06:35 11:49 RBC (4.40-5.60) X 10*6/uL Hct (39.6-50.0) % BUN 27.3 H (9.0-27.0) mg/dL Creatinine 2.0 H (0.6-1.5) mg/dL Est GFR (CKD-EPI) 33 L (>=60) Glucose 128 H (70-110) mg/dL POC Glucose (mg/dL) 124 H (70-110) mg/dL Assessment and Plan Assessment: Intermittent hemoptysis, in a patient with prior tobacco history and possible underlying COPD. Is for bronchoscopy with BAL today History of bladder cancer History of hypertension History of dysphagia History of diabetes mellitus Plan: The patient was seen and evaluated Medications and labs reviewed Currently stable and on room air No blood-tinged sputum Plan is for bronchoscopy with BAL today Could be discharged home later today if stable This patient was seen independently by the pulmonary nurse practitioner addressing pulmonary issues I have personally seen and examined the patient, performed the documentation and the assessment and plan as written. Number of minutes spent on the visit: 24.
[2023-10-01 17:03] LABS: Glucose,Whole Blood 141 mg/dL (70-110)
[2023-10-01 20:50] LABS: Glucose,Whole Blood 191 mg/dL (70-110)
[2023-10-01 21:48] VITALS: RESP 16
[2023-10-02 05:50] LABS: Appearance,BF Cloudy (Clear); RBC, Body Fluid 8 /UL (0-2000)
[2023-10-02 06:12] LABS: Glucose,Whole Blood 144 mg/dL (70-110)
[2023-10-02 07:30] VITALS: BP 134/76; PULSE 58; TEMP 98.2
[2023-10-02] MEDS: ENOXAPARIN 30 MG/0.3 ML SYRINGE SQ SCH (08:28)
[2023-10-02 08:51] LABS: Basophils # (A) 0.04 X 10*3/uL (0.00-0.10); Basophils % (A) 0.5 %; Eosinophils # (A) 0.17 X 10*3/uL (0.04-0.35); Eosinophils % (A) 2.3 %; HCT 36.2 % (39.6-50.0); HGB 12.3 g/dL (13.0-17.0); Lymphocytes # (A) 1.58 X 10*3/uL (0.90-5.00); Lymphocytes % (A) 21.1 %; MCH 32.5 pg (27.0-32.0); MCV 95.5 FL (80.0-97.0); Mean Platelet Volume 10.2 FL (9.5-12.2); Monocytes # (A) 0.69 X 10*3/uL (0.20-1.00); Monocytes % (A) 9.2 %; NRBC Per 100 WBC 0 X 10*3/uL (0.00-0.01); Neutrophils # (A) 4.96 X 10*3/uL (1.80-7.70); Neutrophils % (A) 66.4 %; Platelet Count 208 X 10*3/uL (140-440); RBC 3.79 X 10*6/uL (4.40-5.60); RDW 12.8 % (11.5-14.5); WBC 7.48 X 10*3/uL (4.50-10.00)
[2023-10-02 09:01] LABS: Nucleated Cells, Body Fluid 20 /UL
[2023-10-02 09:15] LABS: ALT 14 U/L (10-49); AST 18 U/L (14-35); Alkaline Phosphatase 48 U/L (41-126); BUN/Creat Ratio 13.65 Ratio (12.00-20.00); Blood Urea Nitrogen 27.3 mg/dL (9.0-27.0); Calcium 8.9 mg/dL (8.7-10.3); Chloride 107 mmol/L (96-109); Globulin 2.1 g/dL (1.6-3.3); Glucose 149 mg/dL (70-110); Potassium 4.3 mmol/L (3.5-5.5); Sodium 139 mmol/L (135-145); Total Bilirubin 0.4 mg/dL (0.3-1.2); Total Protein 6.1 g/dL (6.2-8.2)
--- NOTE | 2023-10-02 11:32 | P.PN ---
Subjective Progress Note Date: 10/02/23 82-year-old male who presents to the emergency department on September 28, complaining of shortness of breath, and chest pain. The patient has a history of advanced bladder cancer, and sees Dr. Morales, here in [facility]. The patient presents with pain in the chest, primarily on the right side, cough, and streaky hemoptysis. The hemoptysis is intermittent. The patient was a heavy smoker in the past, does not smoke currently. In addition to bladder cancer, he apparently has a history of hypertension, diabetes, and may have underlying COPD. He does not see a lung doctor currently. He quit smoking about 5 years ago. The patient also complains of difficulty in swallowing. He apparently recently saw Dr. Hughes, who did a scope, but he is not sure whether or not there is anything abnormal found. Because of his hemoptysis, the patient will undergo bronchoscopy tomorrow. His labs include a white count of 5.4, hemoglobin 13.9, hematocrit 42.5, and a platelet count of 246,000. PT/INR and PTT are all n ormal. Venous blood gas was normal. Sodium 139, potassium 4.2, chlorides 109, CO2 21, BUN 32, creatinine 1.88. Glucose was 178. Troponins were negative x 3. N-terminal proBNP was normal. He tested negative for influenza, RSV, and coronavirus. Chest x-ray was consistent with COPD. CT angiogram was negative for PE, and showed a few scattered calcified pleural plaques, consistent with previous asbestos exposure. The patient is seen today October 01, 2023 in follow-up on the regular medical fl oor. He is awake and alert in no acute distress. Resting quite comfortably in bed. Maintaining good O2 saturations in the 90s on room air. Has been afebrile. He has not had any further episodes of hemoptysis or blood-tinged sputum. Plan is for bronchoscopy with BAL today. White count 6.6. Hemoglobin 13.3. Platelets 226. Sodium 140. Potassium 4.4. Bicarb 22. BUN 27. Creatinine 2.0. Glucose 128. He is somewhat hypertensive. The patient is seen today October 02, 2023 in follow-up on the regular medical floor. He is currently resting comfortably in bed. No acute distress. Maintaining good O2 saturations in the 90s on room air. He is afebrile. Hemodynamically stable. He did undergo bronchoscopy with BAL yesterday. No acute findings of active bleeding. There was some noted bronchitis. Cultures and cytology pending. White count 7.4. Hemoglobin 12.3. Platelets 208. Sod ium 139. Potassium 4.3. Bicarb 20. BUN 27. Creatinine 2.0. Glucose 149. He remains on Lovenox for DVT prophylaxis. Objective - Vital Signs Vital signs: Vital Signs Temp 98.2 F 10/02/23 07:00 Pulse 58 L 10/02/23 07:00 Resp 16 10/02/23 07:00 BP 134/76 10/02/23 07:00 Pulse Ox 97 10/02/23 07:00 FiO2 Intake & Output 10/01/23 10/02/23 10/02/23 18:59 06:59 18:59 Intake Total 260 240 Output Total 75 1 Balance 185 239 Intake: IV 200 Oral 60 240 Output: Urine 75 Stool 1 Other: Voiding Method Toilet Toilet # Voids 1 - Exam GENERAL EXAM: Alert, 82-year-old male patient, on room air, comfortable in no apparent distress. HEAD: Normocephalic. EYES: Normal reaction of pupils, equal size. NOSE: Clear with pink turbinates. THROAT: No erythema or exudates. NECK: No masses, no JVD. CHEST: No chest wall deformity. LUNGS: Equal air entry with no crackles, wheeze, rhonchi or dullness. CVS: S1 and S2 normal with no audible murmur, regular rhythm. ABDOMEN: No hepatosplenomegaly, normal bowel sounds, no guarding or rigidity. SPINE: No scoliosis or deformity SKIN: No rashes CENTRAL NERVOUS SYSTEM: No focal deficits, tone is normal in all 4 extremities. EXTREMITIES: There is no peripheral edema. No clubbing, no cyanosis. Peripheral pulses are intact. - Labs CBC & Chem 7: 10/02/23 04:42 10/02/23 04:42 Labs: Abnormal Lab Results - Last 24 Hours (Table) 10/01/23 10/01/23 10/01/23 Range/Units 11:49 12:45 17:01 RBC (4.40-5.60) X 10*6/uL Hgb (13.0-17.0) g/dL Hct (39.6-50.0) % MCH (27.0-32.0) pg Carbon Dioxide (21.6-31.8) mmol/L BUN (9.0-27.0) mg/dL Creatinine (0.6-1.5) mg/dL Est GFR (CKD-EPI) (>=60) Glucose (70-110) mg/dL POC Glucose (mg/dL) 124 H 141 H (70-110) mg/dL Hemoglobin A1c (<=6.0) % Total Protein (6.2-8.2) g/dL Fluid Appearance Cloudy A (Clear) 10/01/23 10/02/23 10/02/23 Range/Units 20:48 04:42 04:42 RBC 3.79 L (4.40-5.60) X 10*6/uL Hgb 12.3 L (13.0-17.0) g/dL Hct 36.2 L (39.6-50.0) % MCH 32.5 H (27.0-32.0) pg Carbon Dioxide (21.6-31.8) mmol/L BUN (9.0-27.0) mg/dL Creatinine (0.6-1.5) mg/dL Est GFR (CKD-EPI) (>=60) Glucose (70-110) mg/dL POC Glucose (mg/dL) 191 H (70-110) mg/dL Hemoglobin A1c 6.4 H (<=6.0) % Total Protein (6.2-8.2) g/dL Fluid Appearance (Clear) 10/02/23 10/02/23 Range/Units 04:42 06:11 RBC (4.40-5.60) X 10*6/uL Hgb (13.0-17.0) g/dL Hct (39.6-50.0) % MCH (27.0-32.0) pg Carbon Dioxide 20.0 L (21.6-31.8) mmol/L BUN 27.3 H (9.0-27.0) mg/dL Creatinine 2.0 H (0.6-1.5) mg/dL Est GFR (CKD-EPI) 33 L (>=60) Glucose 149 H (70-110) mg/dL POC Glucose (mg/dL) 144 H (70-110) mg/dL Hemoglobin A1c (<=6.0) % Total Protein 6.1 L (6.2-8.2) g/dL Fluid Appearance (Clear) Microbiology - Last 24 Hours (Table) 10/01/23 12:45 Gram Stain - Preliminary Bronchoalviolar Lavage - Right Assessment and Plan Assessment: Intermittent hemoptysis, in a patient with prior tobacco history and possible underlying COPD. Bronchoscopy performed 10/01/2023. No evidence of active bleeding. Possible bronchitis. History of bladder cancer History of hypertension History of dysphagia History of diabetes mellitus Plan: The patient was seen and evaluated Medications and labs reviewed Currently stable and on room air Cleared for discharge from the pulmonary standpoint Initiate a Medrol Dosepak Follow-up in our office in 1 week This patient was seen independently by the pulmonary nurse practitioner addressing pulmonary issues I have personally seen and examined the patient, performed the documentation and the assessment and plan as written. Number of minutes spent on the visit: 23.
[2023-10-02] MEDS: methylPREDNISolone 4 MG TAB TAPER PO SCH (12:05)
[2023-10-02 13:06] LABS: Glucose,Whole Blood 161 mg/dL (70-110)
--- NOTE | 2023-10-02 13:57 | P.DS ---
Providers Date of admission: 09/29/23 22:37 Expected date of discharge: 10/02/23 Attending physician: Tatum Hardy Consults: 09/29/23 22:30 Consult Physician Routine Consulting Provider: Fernando Drake Consult Reason/Comments: May need bronchoscopy Do you want consulting provider notified?: Yes 09/30/23 09:35 Consult Physician Routine Consulting Provider: Braden Drake Consult Reason/Comments: abdnormal head CT Do you want consulting provider notified?: Yes 09/30/23 10:23 Consult Physician Routine Consulting Provider: Tristan Morales Consult Reason/Comments: bladder CA Do you want consulting provider notified?: Yes Primary care physician: Tatum Antony [facility] Course: Diagnosis on discharge: 1. cough with chest discomfort. 2. History of bladder cancer. Per urology services no evidence of recurrent bladder cancer patient has scheduled repeat cystoscopy in June 2024 repeat cystoscopy 3. Abnormal head CT. Per neurology services patient to follow-up outpatientper neurology service is patient to follow-up outpatient 4. History of diabetes mellitus 5. History of anxiety disorder 6. Chronic kidney disease 7. History of BPH Hospital course: This is an 82-year-old male patient who presented to the ER with complaints of increased cough and chest pain. Patient reports this has been an ongoing issue that has increased over the past few days. Patient has past medical history of bladder cancer in which he follows with urology services, diabetes mellitus and anxiety. Chest x-ray completed showing possible underlying COPD clinically correlate no acute process seen. Head CT completed showing mild hydrocephalus may be an ex vacuo basis relating to central sacral atrophy correlate to exclude a component of NPH. Otherwise no acute intracranial abnormality seen if persistent concern consider can contrast enhanced MRI for more sensitive evaluation. CTA completed showing underlying pulmonary arterial hypertension no evidence for pulmonary embolus. Prominent LAD and circumflex coronary artery calcifications mild aneurysm ascending aorta a few scattered calcified pleural plaques. Troponins negative x 3. Creatinine 1.88 bun 32 which does appear chronic for patient. Patient negative for influenza RSV and COVID-19. At this time patient will be admitted pulmonary neurology and urology services will be consulted. At this time patient complains of some coughing. Patient denies chest pain or shortness of breath at this time patient denies nausea vomiting or diarrhea. Patient denies any urinary burning or frequency On 10/01/2023 patient is alert and oriented x 3.10/01/2023 patient is alert and oriented 3. Plans today for bronchoscopy per pulmonary services. Plans today for bronchoscopy per pulmonary services. Neurology service is recommending follow-up outpatient Neurology service is recommending follow-up outpatient.. Patient denies chest pain or shortness of breath. Patient denies nausea vomiting or diarrhea. Patient denies any urinary burning or frequency Patient denies chest pain or shortness of breath. Patient denies nausea vomiting or diarrhea. Denies any urinary burning or frequency. Current vital signs Temp 98.0, heart rate 60, respiratory rate 17, blood pressure 148/81 with a pulse ox of 98% on room air On 10/02/2023 patient was seen and examined on the medical floor he is alert and oriented x 3 in no apparent distress there is no fever or chills no headache or dizziness no chest pain no shortness of breath no cough no nausea or vomiting no abdominal pain no diarrhea no urinary symptoms. Last night patient had few episodes of diarrhea, stools for C. difficile was ordered, however patient did not have any further bowel movement and was not able to give any samples, patient felt well and he was asking about discharge home, he was cleared by pulmonary, he will be discharged home today he will be followed in our office in 2 to 3 days Plan - Discharge Summary New Discharge Prescriptions: New methylPREDNISolone Dose Pack [Medrol Dose Pack] 24 mg PO DAILY 6 Days #1 tab Diphenox-Atrop 2.5-0.025 mg [Lomotil] 1 each PO Q6HR PRN 3 Days #12 tab PRN Reason: Diarrhea Continue ALPRAZolam [Xanax] 0.5 mg PO BID PRN PRN Reason: Anxiety HYDROcodone/APAP 7.5-325MG [Jesup 7.5-325] 1 tab PO Q8H PRN PRN Reason: Pain Ergocalciferol (Vitamin D2) [Drisdol (50,000 Iu)] 1,250 mcg PO Q14D glipiZIDE [Glucotrol] 5 mg PO BID carvediloL [Coreg] 6.25 mg PO BID-W/MEALS Discharge Medication List ALPRAZolam [Xanax] 0.5 mg PO BID PRN 06/13/21 [History] glipiZIDE [Glucotrol] 5 mg PO BID 06/13/21 [History] Ergocalciferol (Vitamin D2) [Drisdol (50,000 Iu)] 1,250 mcg PO Q14D 09/29/23 [History] HYDROcodone/APAP 7.5-325MG [Jesup 7.5-325] 1 tab PO Q8H PRN 09/29/23 [History] carvediloL [Coreg] 6.25 mg PO BID-W/MEALS 09/29/23 [History] Diphenox-Atrop 2.5-0.025 mg [Lomotil] 1 each PO Q6HR PRN 3 Days #12 tab 10/02/23 [Rx] methylPREDNISolone Dose Pack [Medrol Dose Pack] 24 mg PO DAILY 6 Days #1 tab 10/02/23 [Rx] Follow up Appointment(s)/Referral(s): Tatum Hardy MD [Primary Care Provider] - 1-2 days
[2023-10-02] MEDS: DIPHENOX-ATROP 2.5-0.025 MG 1 EACH TAB PO PRN (14:09)
[2023-10-11] MEDS ORDERED: ERGOCALCIFEROL 1,250 MCG (50,000 IU) CAPSULE PO SCH (09:00)
== END 2023-10-02 15:24 | disposition home or self-care (01) | DRG 204 ==
LOC: EC 16:28 → 3SCARD 22:37 → 6NMEDSUR 23:07
PROVIDERS: ADMIT Internal Medicine; ATTEND Internal Medicine
PROC: 0B9D8ZX Drainage of Right Middle Lung Lobe, Via Natural or Artificial Opening Endoscopic, Diagnostic (ICD-10-PCS; principal; 2023-10-01 08:30)
DX: R04.2 Hemoptysis (principal); G91.9 Hydrocephalus, unspecified; I12.9 Hypertensive chronic kidney disease with stage 1 through stage 4 chronic kidney disease, or unspecified chronic kidney disease; I27.21 Secondary pulmonary arterial hypertension; Z20.822 Contact with and (suspected) exposure to COVID-19; J44.9 Chronic obstructive pulmonary disease, unspecified; N18.9 Chronic kidney disease, unspecified; N40.0 Benign prostatic hyperplasia without lower urinary tract symptoms; J44.89 Other specified chronic obstructive pulmonary disease; E11.22 Type 2 diabetes mellitus with diabetic chronic kidney disease; F41.9 Anxiety disorder, unspecified; H35.30 Unspecified macular degeneration; I25.10 Atherosclerotic heart disease of native coronary artery without angina pectoris; R13.10 Dysphagia, unspecified; Z79.84 Long term (current) use of oral hypoglycemic drugs; Z79.899 Other long term (current) drug therapy; Z85.51 Personal history of malignant neoplasm of bladder; Z87.891 Personal history of nicotine dependence; Z92.21 Personal history of antineoplastic chemotherapy; Z91.030 Bee allergy status
CPT/HCPCS: 31624; 36415; 70450; 71046; 71275; 80053; 82803; 83036; 83735; 83880; 84484; 85025; 85610; 85730; 87070; 87102; 87116; 87205; 87206; 87324; 87636; 89050; 93005; 96360; 99285

== ENCOUNTER 2023-12-22 08:00 | Observation (INO) | payer MEDICARE ==
[2023-12-22] MEDS: SODIUM CHLORIDE 0.9% 1,000 ML IV STA ×2 (09:18→10:43)
[2023-12-22] MEDS: ASPIRIN 81 MG PO STA (09:19)
[2023-12-22] MEDS: NITROGLYCERIN SL TABS 0.4 MG TAB SUBLINGUAL STA (09:20)
[2023-12-22 09:32] LABS: Basophils % (A) 1 %; Eosinophils # (A) 0.2 k/uL (0-0.7); Eosinophils % (A) 3 %; HGB 13.5 gm/dL (13.0-17.5); Lymphocytes # (A) 1.6 k/uL (1.0-4.8); Lymphocytes % (A) 29 %; MCH 31.7 pg (25.0-35.0); MCHC 32.2 g/dL (31.0-37.0); MCV 98.4 fL (80.0-100.0); Mean Platelet Volume 7.5; Monocytes # (A) 0.4 k/uL (0-1.0); Monocytes % (A) 7 %; Neutrophils % (A) 57 %; Platelet Count 220 k/uL (150-450); RBC 4.27 m/uL (4.30-5.90); RDW 12.8 % (11.5-15.5); WBC 5.4 k/uL (3.8-10.6)
[2023-12-22 09:45] LABS: INR 0.9 (<1.2); Partial Thromboplastin Time 23.9 sec (22.0-30.0); Prothrombin Time 10.5 sec (10.0-12.5)
[2023-12-22 09:47] LABS: ALT 16 U/L (4-49); AST 25 U/L (17-59); African American GFR (CKD) 39 (>60 ml/min/1.73 sqM); Albumin 4.1 g/dL (3.5-5.0); Alkaline Phosphatase 41 U/L (38-126); Anion Gap 12 mmol/L; Blood Urea Nitrogen 37 mg/dL (9-20); Calcium 9.7 mg/dL (8.4-10.2); Carbon Dioxide 20 mmol/L (22-30); Chloride 107 mmol/L (98-107); Glucose 105 mg/dL (74-99); Lipase 95 U/L (23-300); Non-African American GFR(CKD) 33 (>60 ml/min/1.73 sqM); Potassium 4.2 mmol/L (3.5-5.1); Sodium 139 mmol/L (137-145); Total Bilirubin 0.6 mg/dL (0.2-1.3); Total Protein 6.6 g/dL (6.3-8.2)
--- NOTE | 2023-12-22 09:51 | XR ---
EXAMINATION TYPE: XR chest 2V DATE OF EXAM: 12/22/2023 COMPARISON: 09/29/23 HISTORY: Shortness of breath TECHNIQUE: Frontal and lateral views of the chest are obtained. FINDINGS: Scattered senescent parenchymal changes noted. Hyperinflation compatible with COPD. No evidence for infiltrate. No evidence for atelectasis. Heart size is stable. Mediastinal structures are stable and grossly unremarkable. No evidence for hilar prominence. Degenerative changes dorsal spine. IMPRESSION: 1. No evidence for acute pulmonary disease. [facility], , 12/22/2023 9:48 AM
[2023-12-22 10:30] LABS: Appearance,Urine Clear (Clear); Bilirubin,Urine Negative (Negative); Blood,Urine Negative (Negative); Color,Urine Light Yellow; Glucose,Urine (UA) Negative (Negative); Hyaline Casts,Urine 1 /lpf (0-2); Ketones,Urine Negative (Negative); Leukocyte Esterase,Urine Negative (Negative); Mucus,Urine Rare /hpf; Nitrite,Urine Negative (Negative); Protein,Urine 2+ (Negative); RBC,Urine <1 /hpf (0-5); Specific Gravity,Urine 1.021 (1.001-1.035); Squamous Epithelial Cell,Urine <1 /hpf (0-4); Urobilinogen,Urine <2.0 mg/dL (<2.0); WBC,Urine 1 /hpf (0-5)
[2023-12-22] MEDS: MORPHINE SULFATE 4 MG/ML SYRINGE IVP STA (10:46)
--- NOTE | 2023-12-22 11:48 | CT ---
EXAMINATION TYPE: CT chest angio for PE CT DLP: 1413.3 mGycm, Automated exposure control for dose reduction was used. DATE OF EXAM: 12/22/2023 11:40 AM COMPARISON: CT chest 09/29/2023, CT chest 529.4 CLINICAL INDICATION:Male, 83 years old with history of chest pain, history of cancer; chest pain, his tory of bladder cancer. TECHNIQUE/CONTRAST: CTA scan of the thorax is performed with IV Contrast, patient injected with 80ml mL of Isovue 370, pu lmonary embolism protocol. MIP images are created and reviewed. FINDINGS: Pulmonary Artery: There is no evidence for a filling defect within the pulmonary vasculature to sugge st acute pulmonary embolism. The pulmonary artery is of normal size. Lungs/Pleura: No evidence of focal consolidation, pleural effusion or pneumothorax. Incidental calcif ied pleural plaques noted along the posterior left mid chest as well as the anterior right mid chest. Stable 4 mm subpleural pulmonary nodule posterior left lower lobe (series 406, image 97). Mild inter stitial scarring in the lower lungs redemonstrated. Chronic focal pleural thickening along the right minor fissure redemonstrated. Airway: Large airways are patent. Heart: Heart is within normal limits for size.. No pericardial effusion. Extensive LAD and circumflex coronary artery calcifications are present. 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 Stable mild aneurysm dilatation of the ascending thoracic aor ta measuring 4.2 cm when measured with similar technique. Ectatic descending thoracic aorta measuring up to 3.5 cm. Lower descending thoracic aorta mildly aneurysmal measuring 3.1 cm. Scattered mild art hritic ossification throughout the thoracic aorta. Mediastinum: No evidence of adenopathy. Musculoskeletal: No acute osseous abnormalities. Moderate degenerative disc disease of the mid thorac ic spine with accentuated thoracic kyphosis. Chronic inferior endplate Schmorl's node of L1. No aggre ssive osseous lesion. Unchanged 1.5 cm intramuscular lipoma of the left lateral chest wall. Soft Tissues: Unremarkable. Lower neck: No significant findings. Upper Abdomen: Please refer to dedicated CT abdomen pelvis same day for findings. IMPRESSION: 1. No evidence of pulmonary embolism. 2. Prominent LAD and circumflex coronary artery calcifications redemonstrated. 3. 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 4. Few scattered calcified pleural plaques are redemonstrated. Correlate for any history of prior asb estosis exposure. [facility], , 12/22/2023 11:45 AM
--- NOTE | 2023-12-22 11:55 | CT ---
EXAMINATION TYPE: CT abdomen pelvis w con CT DLP: 1413.3 mGycm, Automated exposure control for dose reduction was used. DATE OF EXAM: 12/22/2023 11:40 AM COMPARISON: CT abdomen and pelvis 06/20/2023 CLINICAL INDICATION:Male, 83 years old with history of chest pain, history of cancer; chest pain, his tory of bladder cancer TECHNIQUE: Standard CT of the abdomen and pelvis following the administration of 100 cc of Isovue 3 00 IV contrast material. Coronal and sagittal reformats were performed. FINDINGS: LOWER CHEST: Unremarkable ABDOMEN LIVER: Unremarkable GALLBLADDER AND BILE DUCTS: Unremarkable. PANCREAS: Unremarkable. SPLEEN: Unremarkable. ADRENAL GLANDS: Unremarkable. KIDNEYS AND URETERS: No right hydronephrosis. Left kidney is absent which may be surgical versus david enital. Right-sided renal cysts with largest measuring up to 6.8 cm. Contrast is demonstrated within the right renal collecting system on the delayed phase. PELVIS BLADDER: Underdistended which limits evaluation. Prostate gland indents upon the urinary bladder base . REPRODUCTIVE: Prostate is enlarged in size measuring 5.8 cm in transverse dimension. ABDOMEN & PELVIS STOMACH AND BOWEL: Stomach and duodenum are unremarkable. No focal bowel wall thickening or surroundi ng inflammatory changes. No evidence of bowel obstruction. PERITONEUM: No evidence of pneumoperitoneum or free fluid. VASCULATURE: Moderate atherosclerotic calcifications are present throughout the abdominal aorta and i ts branches. No evidence of aortic aneurysm. Pelvic phleboliths. MUSCULOSKELETAL: No acute osseous abnormalities. Prominent Schmorl's node involving the inferior endp late of the L1 vertebral body. Moderate multilevel degenerative disc disease of the lower lumbar spin e. No aggressive osseous lesion. Degenerative bony bridging right SI joint. Mild degenerative changes of both hips. LYMPH NODES: No evidence for lymphadenopathy. SOFT TISSUE/ABDOMINAL WALL: Unremarkable IMPRESSION: 1. No CT evidence for acute abdominal/pelvic process. 2. Prostatomegaly which indents upon the urinary bladder base. Correlate with PSA values. 3. 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 [facility], , 12/22/2023 11:53 AM
[2023-12-22] MEDS ORDERED: NALOXONE 0.4 MG/ML 1 ML VIAL IV PRN (12:43)
[2023-12-22] MEDS ORDERED: MORPHINE SULFATE 4 MG/ML SYRINGE IV PRN (12:43)
[2023-12-22] MEDS ORDERED: ONDANSETRON 4 MG/2 ML VIAL IVP PRN (12:43)
--- NOTE | 2023-12-22 12:47 | ED ---
General Adult HPI - General Chief complaint: Chest Pain Stated complaint: Chest pain, abd pain Time Seen by Provider: 12/22/23 09:05 Source: patient, RN notes reviewed, old records reviewed Mode of arrival: ambulatory Limitations: no limitations - History of Present Illness Initial comments: Patient is an 83-year-old m is also complaining of generalized bodyaches. Has been an ongoing process. Chest pain has been worse over the last week. Dorys presents emergency department complaint of chest pain. States it is left-sided and is having a hard time describing what it feels like. Denies shortness of breath. Patient is concerned because he has a known history of bladder cancer and thinks it may be spreading. Has not gotten imaging done outpatient. He is presenting for the chest pain as well as the desire for imaging. Denies any co nsistent abdominal pain currently. Denies nausea or vomiting. Denies any diaphoresis. Denies radiation of the pain. No known palliative or provocative factors. Has a history of diabetes, hypertension, bladder cancer. Patient was in agreement with this plan.Patient also complains of difficulty swallowing. States this has been an ongoing issue as well. - Related Data Home Medications Medication Instructions Recorded Confirmed ALPRAZolam [Xanax] 0.5 mg PO BID 06/13/21 12/22/23 glipiZIDE [Glucotrol] 5 mg PO BID 06/13/21 12/22/23 Ergocalciferol (Vitamin D2) 1,250 mcg PO Q14D 09/29/23 12/22/23 [Drisdol (50,000 Iu)] HYDROcodone/APAP 7.5-325MG [[place] 1 tab PO Q8H 09/29/23 12/22/23 7.5-325] carvediloL [Coreg] 6.25 mg PO BID-W/MEALS 09/29/23 12/22/23 Allergies Allergy/AdvReac Type Severity Reaction Status Date / Time bee venom protein (honey bee) Allergy Anaphylaxis Verified 12/22/23 10:30 Review of Systems ROS Statement: Those systems with pertinent positive or pertinent negative responses have been documented in the HPI. Review of Systems: CONST: Denies fever EYES: Denies blurry vision ENT: Denies nasal congestion C/V: Endorses chest pain RESP: Denies shortness of breath GI: Endorses abdominal pain : Denies dysuria SKIN: Denies rash. MSK: Denies joint pain. NEURO: Denies headache ROS Other: All systems not noted in ROS Statement are negative. Past Medical History Past Medical History: Cancer, Diabetes Mellitus Additional Past Medical History / Comment(s): stress test done one month ago, bladder cancer diagnosed 02/2021 History of Any Multi-Drug Resistant Organisms: None Reported Past Surgical History: Bladder Surgery Additional Past Surgical History / Comment(s): tumors removed from bladder, colonoscopy, EGD Past Anesthesia/Blood Transfusion Reactions: No Reported Reaction Past Psychological History: Anxiety Smoking Status: Former smoker Past Alcohol Use History: Occasional Past Drug Use History: None Reported General Exam - General Exam Comments Initial Comments: General: Appears in no acute distress. HEAD: Normal with no signs of head trauma. EYES: PERRLA, EOMI, conjunctiva normal, no discharge. ENT: Hearing grossly intact, normal oropharynx. RESPIRATORY: Clear breath sounds bilaterally. No wheezes, rales, or rhonchi. C/V: Regular rate and rhythm. S1 and S2 auscultated, no edema, peripheral pulses 2+ and intact throughout ABD: Abd is soft, nontender, nondistended EXT: Normal range of motion, no obvious deformity SKIN: No rashes or lesions observed on exposed skin. NEURO: Alert and oriented x 4. Limitations: no limitations Course Vital Signs 12/22/23 12/22/23 12/22/23 08:07 09:23 10:48 Temperature 98 F Pulse Rate 62 67 50 L Respiratory 20 20 18 Rate Blood Pressure 154/90 197/111 154/83 O2 Sat by Pulse 99 96 96 Oximetry 12/22/23 12:26 Temperature Pulse Rate 50 L Respiratory 18 Rate Blood Pressure 179/79 O2 Sat by Pulse 97 Oximetry Medical Decision Making - Medical Decision Making Was pt. sent in by a medical professional or institution (, PA, CALL MANAGER, urgent care, hospital, or halfway...) When possible be specific @ -No Did you speak to anyone other than the patient for history (EMS, parent, family, police, friend...)? What history was obtained from this source @ -No Did you review nursing and triage notes (agree or disagree)? Why? @ -I reviewed and agree with nursing and triage notes Were old charts reviewed (outside hosp., previous admission, EMS record, old EKG, old radiological studies, urgent care reports/EKG's, halfway records)? Report findings @ -No old charts were reviewed Differential Diagnosis (chest pain, altered mental status, abdominal pain women, abdominal pain men, vaginal bleeding, weakness, fever, dyspnea, syncope, headache, dizziness, GI bleed, back pain, seizure, CVA, palpatations, mental health, musculoskeletal)? @ -Differential Chest Pain: Stable Angina, Unstable Angina, STEMI, NSTEMI Aortic Dissection, Pneumothorax, Musculoskeletal, Esophageal Spasm GERD, Cholecystitis, Pancreatitis, Zoster, this is not meant to be an all-inclusive list. EKG interpreted by me (3pts min.). @ -As above X-rays interpreted by me (1pt min.). @ -Chest x-ray reveals no obvious acute cardiopulmonary process. CT interpreted by me (1pt min.). @ -CT PE negative for PE. CT abdomen pelvis reveals no evidence of acute intra-abdominal process. U/S interpreted by me (1pt. min.). @ -None done What testing was considered but not performed or refused? (CT, X-rays, U/S, lab s)? Why? @ -None What meds were considered but not given or refused? Why? @ -None Did you discuss the management of the patient with other professionals (professionals i.e. , PA, CALL MANAGER, lab, RT, psych nurse, nursing home social worker, wirer passenger car, teacher, first officer, case therapist)? Give summary @ -Spoke with admitting provider, Dr. Hardy who accepted the admission. Was smoking cessation discussed for >3mins.? @ -No Was critical care preformed (if so, how long)? @ -No Were there social determinants of health that impacted care today? How? (Homelessness, low income, unemployed, alcoholism, drug addiction, transportation, low edu. Level, literacy, decrease access to med. care, custodial, rehab)? @ -No Was there de-escalation of care discussed even if they declined (Discuss DNR or withdrawal of care, Hospice)? DNR status @ -No What co-morbidities impacted this encounter? (DM, HTN, Smoking, COPD, CAD, Cancer, CVA, ARF, Chemo, Hep., AIDS, mental health diagnosis, sleep apnea, morbid obesity)? @ -Bladder cancer Was patient admitted / discharged? Hospital course, mention meds given and route, prescriptions, significant lab abnormalities, going to OR and other pertinent info. @ -Patient presents emergency department complaint of chest pain. Has been ongoing for a week but worse over the last day. No radiation. We will obtain cardiac workup. Discussed with him and he is concerned for possible spread of his cancer. His PE is not definitively ruled out, will obtain CT PE and also abdomen pelvis CT. Patient was in agreement this plan. Vital signs are within acceptable limits. EKG shows no signs of acute ischemia. Imaging all negative. Labs remarkable for CKD at his baseline. Troponin undetectable. Discussed results with the patient. Did recommend observation admission. Patient was in agreement this plan. Patient given 324 mg of aspirin already. Will continue to trend the troponin. He will receive IV fluids. Cardiology consulted. Patient was in agreement this plan. I spoke with the admitting provider, Dr. Hardy who accepted the admission. Undiagnosed new problem with uncertain prognosis? @ -No Drug Therapy requiring intensive monitoring for toxicity (Heparin, Nitro, Insulin, Cardizem)? @ -No Were any procedures done? @ -No Diagnosis/symptom? @ -Chest pain Acute, or Chronic, or Acute on Chronic? @ -Acute Uncomplicated (without systemic symptoms) or Complicated (systemic symptoms)? @ -Complicated Side effects of treatment? @ -No Exacerbation, Progression, or Severe Exacerbation? @ -No Poses a threat to life or bodily function? How? (Chest pain, USA, MS, pneumonia, PE, COPD, DKA, ARF, appy, cholecystitis, CVA, Diverticulitis, Homicidal, Suicidal, threat to staff... and all critical care pts) @ -Potentially, yes - Lab Data Result diagrams: 12/22/23 09:21 12/22/23 09:21 Lab Results 12/22/23 12/22/23 12/22/23 Range/Units 09:21 09:21 09:21 WBC 5.4 (3.8-10.6) k/uL RBC 4.27 L (4.30-5.90) m/uL Hgb 13.5 (13.0-17.5) gm/dL Hct 42.0 (39.0-53.0) % MCV 98.4 (80.0-100.0) fL MCH 31.7 (25.0-35.0) pg MCHC 32.2 (31.0-37.0) g/dL RDW 12.8 (11.5-15.5) % Plt Count 220 (150-450) k/uL MPV 7.5 Neutrophils % 57 % Lymphocytes % 29 % Monocytes % 7 % Eosinophils % 3 % Basophils % 1 % Neutrophils # 3.0 (1.3-7.7) k/uL Lymphocytes # 1.6 (1.0-4.8) k/uL Monocytes # 0.4 (0-1.0) k/uL Eosinophils # 0.2 (0-0.7) k/uL Basophils # 0.0 (0-0.2) k/uL PT 10.5 (10.0-12.5) sec INR 0.9 (<1.2) APTT 23.9 (22.0-30.0) sec Sodium 139 (137-145) mmol/L Potassium 4.2 (3.5-5.1) mmol/L Chloride 107 (98-107) mmol/L Carbon Dioxide 20 L (22-30) mmol/L Anion Gap 12 mmol/L BUN 37 H (9-20) mg/dL Creatinine 1.84 H (0.66-1.25) mg/dL Est GFR (CKD-EPI)AfAm 39 (>60 ml/min/1.73 sqM) Est GFR (CKD-EPI)NonAf 33 (>60 ml/min/1.73 sqM) Glucose 105 H (74-99) mg/dL Calcium 9.7 (8.4-10.2) mg/dL Magnesium 2.0 (1.6-2.3) mg/dL Total Bilirubin 0.6 (0.2-1.3) mg/dL AST 25 (17-59) U/L ALT 16 (4-49) U/L Alkaline Phosphatase 41 (38-126) U/L Troponin I (0.000-0.034) ng/mL Total Protein 6.6 (6.3-8.2) g/dL Albumin 4.1 (3.5-5.0) g/dL Lipase 95 (23-300) U/L Urine Color Urine Appearance (Clear) Urine pH (5.0-8.0) Ur Specific [place] (1.001-1.035) Urine Protein (Negative) Urine Glucose (UA) (Negative) Urine Ketones (Negative) Urine Blood (Negative) Urine Nitrite (Negative) Urine Bilirubin (Negative) Urine Urobilinogen (<2.0) mg/dL Ur Leukocyte Esterase (Negative) Urine RBC (0-5) /hpf Urine WBC (0-5) /hpf Ur Squamous Epith Cells (0-4) /hpf Hyaline Casts (0-2) /lpf Urine Mucus (None) /hpf 12/22/23 12/22/23 Range/Units 09:21 09:21 WBC (3.8-10.6) k/uL RBC (4.30-5.90) m/uL Hgb (13.0-17.5) gm/dL Hct (39.0-53.0) % MCV (80.0-100.0) fL MCH (25.0-35.0) pg MCHC (31.0-37.0) g/dL RDW (11.5-15.5) % Plt Count (150-450) k/uL MPV Neutrophils % % Lymphocytes % % Monocytes % % Eosinophils % % Basophils % % Neutrophils # (1.3-7.7) k/uL Lymphocytes # (1.0-4.8) k/uL Monocytes # (0-1.0) k/uL Eosinophils # (0-0.7) k/uL Basophils # (0-0.2) k/uL PT (10.0-12.5) sec INR (<1.2) APTT (22.0-30.0) sec Sodium (137-145) mmol/L Potassium (3.5-5.1) mmol/L Chloride (98-107) mmol/L Carbon Dioxide (22-30) mmol/L Anion Gap mmol/L BUN (9-20) mg/dL Creatinine (0.66-1.25) mg/dL Est GFR (CKD-EPI)AfAm (>60 ml/min/1.73 sqM) Est GFR (CKD-EPI)NonAf (>60 ml/min/1.73 sqM) Glucose (74-99) mg/dL Calcium (8.4-10.2) mg/dL Magnesium (1.6-2.3) mg/dL Total Bilirubin (0.2-1.3) mg/dL AST (17-59) U/L ALT (4-49) U/L Alkaline Phosphatase (38-126) U/L Troponin I <0.012 (0.000-0.034) ng/mL Total Protein (6.3-8.2) g/dL Albumin (3.5-5.0) g/dL Lipase (23-300) U/L Urine Color Light Yellow Urine Appearance Clear (Clear) Urine pH 6.0 (5.0-8.0) Ur Specific [place] 1.021 (1.001-1.035) Urine Protein 2+ H (Negative) Urine Glucose (UA) Negative (Negative) Urine Ketones Negative (Negative) Urine Blood Negative (Negative) Urine Nitrite Negative (Negative) Urine Bilirubin Negative (Negative) Urine Urobilinogen <2.0 (<2.0) mg/dL Ur Leukocyte Esterase Negative (Negative) Urine RBC <1 (0-5) /hpf Urine WBC 1 (0-5) /hpf Ur Squamous Epith Cells <1 (0-4) /hpf Hyaline Casts 1 (0-2) /lpf Urine Mucus Rare H (None) /hpf - EKG Data -: EKG Interpreted by Me EKG Comments: 12-lead Electrocardiogram Interpretation Note EKG was reviewed and interpreted by myself. 12-lead ECG performed at 0821 is interpreted by me as revealing sinus bradycardia with occasional PAC at a rate of 54 beats per minute. Left axis deviation. PA interval is 178 ms, QRS duration is 82 ms, QTc is 374 ms.. There were no ST or T wave abnormalities to suggest myocardial ischemia or injury. R wave progression across the precordium was satisfactory. By my interpretation this EKG is non-diagnostic for acute i schemia. Disposition Clinical Impression: Chest pain Disposition: ADMITTED IP TO THIS [facility] Condition: Stable Referrals: Tatum Hardy MD [Primary Care Provider] - 1-2 days Time of Disposition: 12:35
[2023-12-22] MEDS: carvediloL 6.25 MG TAB PO SCH (17:34)
[2023-12-22] MEDS: HYDROcodone/APAP 7.5-325MG 1 EACH TAB PO SCH (20:04)
[2023-12-22] MEDS: ALPRAZolam 0.5 MG TAB PO SCH (20:06)
[2023-12-22] MEDS: HEPARIN SODIUM,PORCINE 5,000 UNIT/ML 1 ML VIAL SQ SCH (20:06)
[2023-12-22] MEDS: glipiZIDE 5 MG TAB PO SCH (20:06)
[2023-12-22] MEDS: hydrALAZINE HCL 20 MG/ML 1 ML VIAL IVP PRN (22:53)
[2023-12-23 06:08] LABS: Glucose,Whole Blood 77 mg/dL (70-110)
[2023-12-23] MEDS: DEXTROSE 50% SYRINGE 50 ML IVP STA (07:02)
[2023-12-23 07:35] LABS: Glucose,Whole Blood 116 mg/dL (70-110)
[2023-12-23] MEDS ORDERED: DOBUTamine DRIP for NUC MED 500 MG in DEXTROSE/WATER 1 250ML.BAG IV PRN (08:07)
[2023-12-23 08:37] LABS: Basophils # (A) 0.05 X 10*3/uL (0.00-0.10); Basophils % (A) 0.7 %; Eosinophils # (A) 0.25 X 10*3/uL (0.04-0.35); Eosinophils % (A) 3.4 %; HCT 42.4 % (39.6-50.0); HGB 14.1 g/dL (13.0-17.0); Lymphocytes # (A) 2.85 X 10*3/uL (0.90-5.00); Lymphocytes % (A) 38.5 %; MCH 31.9 pg (27.0-32.0); MCHC 33.3 g/dL (32.0-37.0); MCV 95.9 FL (80.0-97.0); Mean Platelet Volume 9.7 FL (9.5-12.2); Monocytes # (A) 0.82 X 10*3/uL (0.20-1.00); Monocytes % (A) 11.1 %; NRBC Per 100 WBC 0 X 10*3/uL (0.00-0.01); Neutrophils % (A) 45.8 %; Platelet Count 209 X 10*3/uL (140-440); RBC 4.42 X 10*6/uL (4.40-5.60); WBC 7.41 X 10*3/uL (4.50-10.00)
[2023-12-23 08:46] LABS: ALT 15 U/L (10-49); AST 20 U/L (14-35); Albumin 4.2 g/dL (3.8-4.9); Albumin/Globulin Ratio 1.91 Ratio (1.60-3.17); Alkaline Phosphatase 43 U/L (41-126); BUN/Creat Ratio 16.24 Ratio (12.00-20.00); Blood Urea Nitrogen 27.6 mg/dL (9.0-27.0); Calcium 9.1 mg/dL (8.7-10.3); Carbon Dioxide 22.7 mmol/L (21.6-31.8); Chloride 108 mmol/L (96-109); Globulin 2.2 g/dL (1.6-3.3); Glucose 52 mg/dL (70-110); Potassium 4.3 mmol/L (3.5-5.5); Sodium 141 mmol/L (135-145); Total Bilirubin 0.3 mg/dL (0.3-1.2); Total Protein 6.4 g/dL (6.2-8.2)
[2023-12-23] MEDS: amLODIPine 5 MG TAB PO SCH (08:50)
[2023-12-23] MEDS: hydrALAZINE HCL 25 MG TAB PO SCH (08:50)
--- NOTE | 2023-12-23 09:28 | P.CRDCN ---
History of Present Illness History of present illness: HISTORY OF PRESENT ILLNESS: This is a 83-year-old male with a past medical history significant for diabetes, bladder cancer, anxiety, and former nicotine dependence. Patient follows in the office with Dr. Hughes but has not been seen in the office since April 2021. We have been asked to see the patient in consultation for chest pain. Patient examined at the bedside. Patient presented to the hospital with a multitude of symptoms. Patient states he is overall feeling unwell. He states that his main complaint is trouble swallowing and shortness of breath. He states he has been having issues swallowing for the past 6 months but states it is not getting any better. He also reports shortness of breath that has been going on for a few months but he states it is recently getting worse. He denies any swelling of his lower extremities. He also reports having abdominal cramping at home. Patient also complains of chest discomfort. He states this discomfort has been going on for months and is not getting worse. He describes his chest pain as a stinging sensation on the left side of his chest that will last for 3 to 5 seconds and then goes away. He states that the chest pain occurs at random times and does not seem to be exertionally related. He also reports generalized joint pain over the past 3 to 4 months. Patient's blood pressure was found to be elevated with a systolic between [id number]. DIAGNOSTICS: - EKG reveals sinus bradycardia with no signs of acute ischemia - Chest xray negative for acute process - Chest CT: Negative for pulmonary embolism. Prominent LAD and circumflex coronary artery calcifications redemonstrated. Stable mild aneurysm of ascendi ng aorta at 4.2 cm. Few scattered calcified pleural plaques are redemonstrated. - Laboratory data: WBC 5.4. Hemoglobin 13.5. Platelet count 220. Sodium 139. Potassium 4.2. BUN 37. Creatinine 1.84. Troponin negative x 3. - Current home cardiac medications include carvedilol 6.25 mg twice a day - Patient underwent Cardiolite stress test in 04/2021 which was negative for ischemia REVIEW OF SYSTEMS: At the time of my exam: CONSTITUTIONAL: Denies fever or chills. HEENT: Denies blurred vision, vision changes, or eye pain. Denies hemoptysis CARDIOVASCULAR: Denies chest pain. Denies orthopnea. Denies PND. Denies palpitations RESPIRATORY: Denies shortness of breath. GASTROINTESTINAL: Denies abdominal pain. Denies nausea or vomiting. HEMATOLOGIC: Denies bleeding disorders. GENITOURINARY: Denies any blood in urine. SKIN: Denies pruitis. Denies rash. PHYSICAL EXAM: VITAL SIGNS: Reviewed. GENERAL: Well-developed in no acute distress. HEENT: Head is normocephalic. Pupils are equal, round. Sclerae anicteric. Mucous membranes of the mouth are moist. Neck supple. No JVD or thyromegaly LUNGS: Respirations even and unlabored. Lungs essentially clear to auscultation bilaterally. HEART: Regular rate and rhythm. S1 and S2 heard. ABDOMEN: Soft. Nondistended. Nontender. EXTREMITIES: Normal range of motion. No clubbing or cyanosis. Peripheral pulses intact. No lower extremity edema NEUROLOGIC: Awake and alert. Oriented x 3. ASSESSMENT: Chest pain, troponin negative x 3 Hypertensive urgency Chronic shortness of breath, etiology unclear, no evidence of congestive heart failure Chronic dysphagia Generalized pain LAD and circumflex coronary artery calcifications per CTA Mild ascending aortic aneurysm measuring 4.2 cm History of hemoptysis, status post bronchoscopy 09/2023, pathology negative for malignant cells Diabetes History of bladder cancer, followed outpatient with Dr. Carmen [place] Former nicotine dependence PLAN: An acute coronary event has been ruled out Obtain 2D echo to assess cardiac structure and function Add hydralazine 25 mg twice a day and amlodipine 5 mg twice a day Continue to monitor blood pressure Patient to undergo dobutamine stress echo today Further recommendations pending patient course Nurse practitioner note has been reviewed by physician. Signing provider agrees with the documented findings, assessment, and plan of care documented by TELECOMMUNICATION LINES REPAIRER as a scribe. Past Medical History Past Medical History: Cancer, Diabetes Mellitus Additional Past Medical History / Comment(s): stress test done one month ago, bladder cancer diagnosed 02/2021 History of Any Multi-Drug Resistant Organisms: None Reported Past Surgical History: Bladder Surgery Additional Past Surgical History / Comment(s): tumors removed from bladder, colonoscopy, EGD Past Anesthesia/Blood Transfusion Reactions: No Reported Reaction Past Psychological History: Anxiety Smoking Status: Former smoker Past Alcohol Use History: Occasional Past Drug Use History: None Reported - Past Family History Mother Family Medical History: Cancer Additional Family Medical History / Comment(s): jaw cancer Father History Unknown: Yes Medications and Allergies Home Medications Medication Instructions Recorded Confirmed Type ALPRAZolam [Xanax] 0.5 mg PO BID 06/13/21 12/22/23 History glipiZIDE [Glucotrol] 5 mg PO BID 06/13/21 12/22/23 History Ergocalciferol (Vitamin D2) 1,250 mcg PO Q14D 09/29/23 12/22/23 History [Drisdol (50,000 Iu)] HYDROcodone/APAP 7.5-325MG [[place] 1 tab PO Q8H 09/29/23 12/22/23 History 7.5-325] carvediloL [Coreg] 6.25 mg PO BID-W/MEALS 09/29/23 12/22/23 History Allergies Allergy/AdvReac Type Severity Reaction Status Date / Time bee venom protein (honey bee) Allergy Anaphylaxis Verified 12/22/23 10:30 Physical Exam Vitals: Vital Signs Temp Pulse Pulse Resp BP BP BP 12/23/23 06:40 50 L 12/23/23 01:35 98.1 F 66 18 159/77 12/22/23 22:35 98.1 F 52 L 16 201/88 12/22/23 21:23 53 L 18 178/89 12/22/23 20:15 9 L 88 H 180/101 12/22/23 17:34 65 16 182/96 12/22/23 16:20 54 L 18 165/87 12/22/23 12:26 50 L 18 179/79 12/22/23 10:48 50 L 18 154/83 12/22/23 09:23 67 20 197/111 12/22/23 08:07 98 F 62 20 154/90 Pulse Ox 12/23/23 06:40 12/23/23 01:35 96 12/22/23 22:35 99 12/22/23 21:23 96 12/22/23 20:15 95 12/22/23 17:34 12/22/23 16:20 94 L 12/22/23 12:26 97 12/22/23 10:48 96 12/22/23 09:23 96 12/22/23 08:07 99 Intake and Output 12/22/23 12/23/23 12/23/23 22:59 06:59 14:59 Intake Total 476 0 Balance 476 0 Intake: Oral 476 0 Other: Voiding Method Toilet Toilet # Voids 1 2 Weight 86.183 kg Results 12/23/23 04:08 12/23/23 04:08 Cardiac Enzymes 12/22/23 12/22/23 12/22/23 Range/Units 09:21 09:21 13:58 AST 25 (17-59) U/L Troponin I <0.012 <0.012 (0.000-0.034) ng/mL 12/22/23 Range/Units 17:03 AST (17-59) U/L Troponin I <0.012 (0.000-0.034) ng/mL Coagulation 12/22/23 Range/Units 09:21 PT 10.5 (10.0-12.5) sec APTT 23.9 (22.0-30.0) sec CBC 12/22/23 Range/Units 09:21 WBC 5.4 (3.8-10.6) k/uL RBC 4.27 L (4.30-5.90) m/uL Hgb 13.5 (13.0-17.5) gm/dL Hct 42.0 (39.0-53.0) % Plt Count 220 (150-450) k/uL Comprehensive Metabolic Panel 12/22/23 Range/Units 09:21 Sodium 139 (137-145) mmol/L Potassium 4.2 (3.5-5.1) mmol/L Chloride 107 (98-107) mmol/L Carbon Dioxide 20 L (22-30) mmol/L BUN 37 H (9-20) mg/dL Creatinine 1.84 H (0.66-1.25) mg/dL Glucose 105 H (74-99) mg/dL Calcium 9.7 (8.4-10.2) mg/dL AST 25 (17-59) U/L ALT 16 (4-49) U/L Alkaline Phosphatase 41 (38-126) U/L Total Protein 6.6 (6.3-8.2) g/dL Albumin 4.1 (3.5-5.0) g/dL Current Medications Generic Name Dose Route Start Last Admin Trade Name Freq PRN Reason Stop Dose Admin Hydrocodone Bitart/Acetaminophen 1 each 12/22/23 20:00 12/22/23 20:05 Hydrocodone/Apap 7.5-325mg 1 Each Tab PO 1 each Q8H TAMMIE Administration Alprazolam 0.5 mg 12/22/23 21:00 12/22/23 20:06 Alprazolam 0.5 Mg Tab PO 0.5 mg BID TAMMIE Administration Carvedilol 6.25 mg 12/22/23 17:30 12/22/23 17:34 Carvedilol 6.25 Mg Tab PO 6.25 mg BID-W/MEALS TAMMIE Administration Ergocalciferol 1,250 mcg 12/26/23 09:00 Ergocalciferol 1,250 Mcg (50,000 Iu) Capsule PO Q14D [facility] Glipizide 5 mg 12/22/23 21:00 12/22/23 20:06 Glipizide 5 Mg Tab PO 5 mg BID TAMMIE Administration Heparin Sodium (Porcine) 5,000 unit 12/22/23 21:00 12/22/23 20:06 Heparin Sodium,Porcine 5,000 Unit/Ml 1 Ml Vial SQ 5,000 unit Q12HR TAMMIE Administration Hydralazine HCl 10 mg 12/22/23 22:24 12/22/23 22:53 Hydralazine Hcl 20 Mg/Ml 1 Ml Vial IVP 10 mg Q6HR PRN Administration Blood Pressure - High Morphine Sulfate 4 mg 12/22/23 12:43 Morphine Sulfate 4 Mg/Ml Syringe IV Q4HR PRN Severe Pain (Scale 7 to 10) Naloxone HCl 0.2 mg 12/22/23 12:43 Naloxone 0.4 Mg/Ml 1 Ml Vial IV Q2M PRN Opioid Reversal Ondansetron HCl 4 mg 12/22/23 12:43 Ondansetron 4 Mg/2 Ml Vial IVP Q8HR PRN Nausea And Vomiting Intake and Output 12/22/23 12/23/23 12/23/23 22:59 06:59 14:59 Intake Total 476 0 Balance 476 0 Intake: Oral 476 0 Other: Voiding Method Toilet Toilet # Voids 1 2 Weight 86.183 kg 12/22/23 09:21 12/22/23 09:21
--- NOTE | 2023-12-23 09:33 | P.HPIM ---
History of Present Illness H&P Date: 12/22/23 Power Shipman, is an 83-year-old male who presented to [facility] emergency room with a chief complaint of chest pain He was evaluated in the emergency room vital examination on presentation revealed temp 98.1, heart 66, respiratory rate 18, blood pressure 159/77 with a pulse ox of 96% on room air Laboratory data reveals WBC of 5.4, hemoglobin 13.5, creatinine 1.84 and bun 37 this does appear around patient's baseline troponins negative UA negative. Testing in the emergency room revealed chest x-ray showing no evidence for acute pulmonary disease CTA performed showing no evidence for pulmonary embolism. CT abdomen and pelvis completed showing no evidence for abdominal pelvic process prostate megaly which and indents upon the urinary bladder base correlate with PSA values left kidney is again absent. Patient was admitted to medical floor for further evaluation and treatment Past medical history is significant for bladder cancer in which he follows with urology services with no evidence of recurrence repeat cystoscopy planned for June 2024, history of diabetes mellitus, anxiety, chronic kidney disease and BPH On review of systems patient is alert and oriented x 3. Patient complains of mild chest pain. Patient denies shortness of breath. Patient denies nausea vomiting or diarrhea. Patient denies any urinary burning or frequency Review of Systems Please refer to HPI otherwise unremarkable Past Medical History Past Medical History: Cancer, Diabetes Mellitus Additional Past Medical History / Comment(s): stress test done one month ago, bladder cancer diagnosed 02/2021 History of Any Multi-Drug Resistant Organisms: None Reported Past Surgical History: Bladder Surgery Additional Past Surgical History / Comment(s): tumors removed from bladder, colonoscopy, EGD Past Anesthesia/Blood Transfusion Reactions: No Reported Reaction Past Psychological History: Anxiety Smoking Status: Former smoker Past Alcohol Use History: Occasional Past Drug Use History: None Reported - Past Family History Mother Family Medical History: Cancer Additional Family Medical History / Comment(s): jaw cancer Father History Unknown: Yes Medications and Allergies Home Medications Medication Instructions Recorded Confirmed Type ALPRAZolam [Xanax] 0.5 mg PO BID 06/13/21 12/22/23 History glipiZIDE [Glucotrol] 5 mg PO BID 06/13/21 12/22/23 History Ergocalciferol (Vitamin D2) 1,250 mcg PO Q14D 09/29/23 12/22/23 History [Drisdol (50,000 Iu)] HYDROcodone/APAP 7.5-325MG [[place] 1 tab PO Q8H 09/29/23 12/22/23 History 7.5-325] carvediloL [Coreg] 6.25 mg PO BID-W/MEALS 09/29/23 12/22/23 History Allergies Allergy/AdvReac Type Severity Reaction Status Date / Time bee venom protein (honey bee) Allergy Anaphylaxis Verified 12/22/23 10:30 Physical Exam Vitals: Vital Signs Temp Pulse Resp BP Pulse Ox 12/22/23 17:34 65 16 182/96 12/22/23 16:20 54 L 18 165/87 94 L 12/22/23 12:26 50 L 18 179/79 97 12/22/23 10:48 50 L 18 154/83 96 12/22/23 09:23 67 20 197/111 96 12/22/23 08:07 98 F 62 20 154/90 99 Intake and Output 12/22/23 12/22/23 12/22/23 06:59 14:59 22:59 Other: Weight 86.183 kg In general patient is alert and oriented -3 in no distress HEENT head normocephalic and atraumatic Neck is supple no JVD no goiter no lymphadenopathy no carotid bruit Chest examination is clear to auscultation no crackles no wheezing Cardiac exam reveals regular heart sounds S1 and S2 no gallops no murmurs Abdomen is soft nontender no organomegaly with normal bowel sounds Extremity exam reveals no edema no cyanosis or clubbing Neurological examination reveals no gross focal deficits Results CBC & Chem 7: 12/23/23 04:08 12/23/23 04:08 Labs: Abnormal Lab Results - Last 24 Hours (Table) 12/22/23 12/22/23 12/22/23 Range/Units 09:21 09:21 09:21 RBC 4.27 L (4.30-5.90) m/uL Carbon Dioxide 20 L (22-30) mmol/L BUN 37 H (9-20) mg/dL Creatinine 1.84 H (0.66-1.25) mg/dL Glucose 105 H (74-99) mg/dL Urine Protein 2+ H (Negative) Urine Mucus Rare H (None) /hpf Assessment and Plan Assessment: 1. Chest pain. Troponins negative x 3 2. History of bladder cancer per urology services no evidence of recurrence bladder cancer patient scheduled for cystoscopy in June 2024 3. History of diabetes mellitus 4. History of chronic kidney disease 5. History of anxiety disorder 6. History of BPH DVT prophylaxis heparin Cardiology services consulted Time with Patient: Greater than 30 (Greater than 60% of the total time spent in counseling and coordination of care)
--- NOTE | 2023-12-23 09:35 | P.PN ---
Subjective Progress Note Date: 12/23/23 Power Shipman, is an 83-year-old male who presented to [facility] emergency room with a chief complaint of chest pain He was evaluated in the emergency room vital examination on presentation revealed temp 98.1, heart 66, respiratory rate 18, blood pressure 159/77 with a pulse ox of 96% on room air Laboratory data reveals WBC of 5.4, hemoglobin 13.5, creatinine 1.84 and bun 37 this does appear around patient's baseline troponins negative UA negative. Testing in the emergency room revealed chest x-ray showing no evidence for acute pulmonary disease CTA performed showing no evidence for pulmonary embolism. CT abdomen and pelvis completed showing no evidence for abdominal pelvic process prostate megaly which and indents upon the urinary bladder base correlate with PSA values left kidney is again absent. Patient was admitted to medical floor for further evaluation and treatment Past medical history is significant for bladder cancer in which he follows with urology services with no evidence of recurrence repeat cystoscopy planned for June 2024, history of diabetes mellitus, anxiety, chronic kidney disease and BPH On review of systems patient is alert and oriented x 3. Patient complains of mild chest pain. Patient denies shortness of breath. Patient denies nausea vomiting or diarrhea. Patient denies any urinary burning or frequency On 12/23/2023 patient is alert and oriented x 3. Dobutamine stress test has been ordered per cardiology services. Patient denies any chest pain or shortness of breath. Patient denies nausea vomiting or diarrhea. Patient denies any urinary burning or frequency current vital signs temp 98.1, heart rate 66, respiratory rate 18, blood pressure 159/77 with a pulse ox of 96% on room air Objective - Vital Signs Vital signs: Vital Signs Temp 97.4 F L 12/23/23 07:30 Pulse 50 L 12/23/23 07:30 Resp 17 12/23/23 07:30 BP 180/84 12/23/23 07:30 Pulse Ox 98 12/23/23 07:30 FiO2 Intake & Output 12/22/23 12/23/23 12/23/23 18:59 06:59 18:59 Intake Total 476 Balance 476 Weight 86.183 kg Intake: Oral 476 Other: Voiding Method Toilet Toilet # Voids 2 - Exam In general patient is alert and oriented -3 in no distress HEENT head normocephalic and atraumatic Neck is supple no JVD no goiter no lymphadenopathy no carotid bruit Chest examination is clear to auscultation no crackles no wheezing Cardiac exam reveals regular heart sounds S1 and S2 no gallops no murmurs Abdomen is soft nontender no organomegaly with normal bowel sounds Extremity exam reveals no edema no cyanosis or clubbing Neurological examination reveals no gross focal deficits - Labs CBC & Chem 7: 12/23/23 04:08 12/23/23 04:08 Labs: Abnormal Lab Results - Last 24 Hours (Table) 12/22/23 12/22/23 12/22/23 Range/Units 09:21 09:21 09:21 RBC 4.27 L (4.30-5.90) m/uL Carbon Dioxide 20 L (22-30) mmol/L BUN 37 H (9-20) mg/dL Creatinine 1.84 H (0.66-1.25) mg/dL Est GFR (CKD-EPI) (>=60) Glucose 105 H (74-99) mg/dL POC Glucose (mg/dL) (70-110) mg/dL Urine Protein 2+ H (Negative) Urine Mucus Rare H (None) /hpf 12/23/23 12/23/23 Range/Units 04:08 07:34 RBC (4.30-5.90) m/uL Carbon Dioxide (22-30) mmol/L BUN 27.6 H (9-20) mg/dL Creatinine 1.7 H (0.66-1.25) mg/dL Est GFR (CKD-EPI) 40 L (>=60) Glucose 52 L (74-99) mg/dL POC Glucose (mg/dL) 116 H (70-110) mg/dL Urine Protein (Negative) Urine Mucus (None) /hpf Assessment and Plan Assessment: 1. Chest pain. Troponins negative x 3 2. History of bladder cancer per urology services no evidence of recurrence bladder cancer patient scheduled for cystoscopy in June 2024 3. History of diabetes mellitus 4. History of chronic kidney disease 5. History of anxiety disorder 6. History of BPH DVT prophylaxis heparin Cardiology services consulted Stress test ordered per cardiology
--- NOTE | 2023-12-23 11:51 | CA ---
Transthoracic Echo Report Name: Power Shipman Age: 83 Gender: M : 1940 Exam Date: 12/23/2023 10:57 Exam Location: [facility] Ht (in): 59 Wt (lb): 190 Ordering Physician: Ryann Vargas Attending/Referring Phys: [id number], Alicia Soil Sort Worker Laverne Inman RDCS Procedure CPT: Indications: chest pain,lv function Cardiac Hx: Technical Quality: Good Contrast 1: Total Dose (mL): Contrast 2: Total Dose (mL): MEASUREMENTS (Male / Female) Normal Values 2D ECHO LV Diastolic Diameter PLAX 5.0 cm 4.2 - 5.9 / 3.9 - 5.3 cm LV Systolic Diameter PLAX 3.3 cm IVS Diastolic Thickness 1.7 cm 0.6 - 1.0 / 0.6 - 0.9 cm LVPW Diastolic Thickness 1.7 cm 0.6 - 1.0 / 0.6 - 0.9 cm LV Relative Wall Thickness 0.7 RV Internal Dim ED PLAX 3.7 cm LA Systolic Diameter LX 4.1 cm 3.0 - 4.0 / 2.7 - 3.8 cm LV Diastolic Volume MOD 4C 104.0 cm??? LV Systolic Volume MOD 4C 49.8 cm??? LV Ejection Fraction MOD 4C 52.1 % LV Cardiac Index MOD 4C 2202.1 cm???/min???m??? LV Diastolic Length 4C 8.6 cm LV Systolic Length 4C 7.1 cm LV Diastolic Volume MOD 2C 97.4 cm??? LV Systolic Volume MOD 2C 42.9 cm??? LV Ejection Fraction MOD 2C 55.9 % LV Cardiac Index MOD 2C 2217.8 cm???/min???m??? LV Diastolic Length 2C 8.8 cm LV Systolic Length 2C 6.9 cm M-MODE Aortic Root Diameter MM 3.6 cm AV Cusp Separation MM 2.5 cm DOPPLER AV Peak Velocity 121.5 cm/s AV Peak Gradient 5.9 mmHg Mitral E Point Velocity 60.0 cm/s Mitral A Point Velocity 89.6 cm/s Mitral E to A Ratio 0.7 MV Deceleration Time 296.3 ms TR Peak Velocity 226.3 cm/s TR Peak Gradient 20.5 mmHg Right Ventricular Systolic Press 30.6 mmHg FINDINGS Left Ventricle Left ventricular ejection fraction is estimated at 55-60 %. Left ventricular cavity size normal. Normal left ventricular wall motion. Severe concentric left ventricular hypertrophy. Right Ventricle Mild right ventricular dilatation. Right ventricular systolic pressure within normal limits. Right Atrium Normal right atrial size. No right atrial thrombus or mass seen. Left Atrium Mildly increased left atrial diameter. No left atrial thrombus or mass present. Mitral Valve Structurally normal mitral valve. No mitral stenosis, or prolapse.mild mitral regurgitation. Aortic Valve Trileaflet aortic valve. No aortic valve stenosis . Trace to mild aortic regurgitation. Tricuspid Valve Structurally normal tricuspid valve. Mild tricuspid regurgitation. Pulmonic Valve Structurally normal pulmonic valve. Trace pulmonic regurgitation. Pericardium No pericardial or pleural effusion. Aorta Normal size aortic root and proximal ascending aorta. CONCLUSIONS 1. Normal left ventricular size and systolic function with severely ventricle hypertrophy 2. Mild mitral and tricuspid regurgitation with trace to mild aortic regurgitation Previewed by: Dr. Leo Pineda MD (Electronically Signed) Final Date: 23 December 2023 11:50
[2023-12-23] MEDS ORDERED: DOBUTamine DRIP for NUC MED 500 MG/250 ML BAG IV ONE (12:00)
--- NOTE | 2023-12-23 12:01 | CA ---
Dobutamine Stress Echocardiogram Report Power Shipman Age: 83 Gender: M : 1940 Exam Date: 12/23/2023 10:27 Exam Location: [facility] Ordering Physician: Ryann Vargas Referring Physician: [id number] Shipping Processor: ZIA, Technologist: Ht (in): 69 Wt (lb): 190 Procedure CPT: Indication: CP ICD-9 Codes: Rhythm: Patient History: Chest pain and shortness of breath. Hypertension. Cardiac Medications: Medications in past 24 hours: Contrast: Total Dose (mL): Stress Results Protocol: Dobutamine Peak Dose (???g/kg/min): 30 Duration (min:sec): Atropine:(mg) Target HR: 117 Double Product: [id number] Resting HR: 51 Resting BP: 166 / 89 Peak HR: 122 Peak BP: 216 / 90 Max Predicted HR: 138 88 % Max Predicted HR Stress Summary: BP Response: Reason for Termination: Exceeded target heart rate (85% max predicted) Cardiac Symptoms: Test terminated after reaching target heart rate (85% max predicted) ECG Analysis Resting EKG: Normal sinus rhythm, Minor resting ST/T wave changes Stress EKG: No abnormal ST/T wave changes with exercise Arrhythmia: None Echo Analysis Base Echo Analysis: Normal resting echocardiogram. Low Echo Anaylsis: Normal wall thickening and motion Peak Echo Analysis: Normal wall motion augmentation with decrease in the left ventricle cavity size Recovery Echo: Normal wall motion MEASUREMENTS (Male/Female) Normal Values CONCLUSIONS Normal electrocardiographic response to dobutamine infusion Normal Dobutamine stress echocardiogram. No echocardiographic evidence of myocardial ischemia. Dr. Leo Pineda MD (Electronically Signed) Final Date: 23 December 2023 12:00
[2023-12-23 12:16] LABS: Glucose,Whole Blood 147 mg/dL (70-110)
[2023-12-23 14:50] VITALS: BP 156/79; PULSE 59; RESP 16; TEMP 98.3
--- NOTE | 2023-12-23 15:52 | P.DS ---
Providers Date of admission: 12/22/23 12:46 Expected date of discharge: 12/23/23 Attending physician: Tatum Hardy Consults: 12/22/23 12:43 Consult Physician Routine Consulting Provider: [facility] Consult Reason/Comments: chest pain Do you want consulting provider notified?: Yes Primary care physician: Tatum Antony [facility] Course: Diagnosis on discharge: 1. Chest pain. Troponins negative x 3 2. History of bladder cancer per urology services no evidence of recurrence bladder cancer patient scheduled for cystoscopy in June 2024 3. History of diabetes mellitus 4. History of chronic kidney disease 5. History of anxiety disorder 6. History of BPH Hospital course: Power Shipman, is an 83-year-old male who presented to [facility] emergency room with a chief complaint of chest pain He was evaluated in the emergency room vital examination on presentation revealed temp 98.1, heart 66, respiratory rate 18, blood pressure 159/77 with a pulse ox of 96% on room air Laboratory data reveals WBC of 5.4, hemoglobin 13.5, creatinine 1.84 and bun 37 this does appear around patient's baseline troponins negative UA negative. Testing in the emergency room revealed chest x-ray showing no evidence for acute pulmonary disease CTA performed showing no evidence for pulmonary embolism. CT abdomen and pelvis completed showing no evidence for abdominal pelvic process prostate megaly which and indents upon the urinary bladder base correlate with PSA values left kidney is again absent. Patient was admitted to medical floor for further evaluation and treatment Past medical history is significant for bladder cancer in which he follows with urology services with no evidence of recurrence repeat cystoscopy planned for June 2024, history of diabetes mellitus, anxiety, chronic kidney disease and BPH On review of systems patient is alert and oriented x 3. Patient complains of mild chest pain. Patient denies shortness of breath. Patient denies nausea vomiting or diarrhea. Patient denies any urinary burning or frequency On 12/23/2023 patient is alert and oriented x 3. Dobutamine stress test has been ordered per cardiology services. Patient denies any chest pain or shortness of breath. Patient denies nausea vomiting or diarrhea. Patient denies any urinary burning or frequency current vital signs temp 98.1, heart rate 66, respiratory rate 18, blood pressure 159/77 with a pulse ox of 96% on room air Patient was evaluated by cardiology he underwent an echocardiogram and an echo stress test, testing were normal and patient was cleared by cardiology for discharge. During this admission carvedilol was discontinued, and patient was given amlodipine 5 mg p.o. twice daily and hydralazine 25 mg p.o. twice daily. Patient Condition at Discharge: Stable Plan - Discharge Summary Discharge Rx Participant: Yes New Discharge Prescriptions: New amLODIPine [Norvasc] 5 mg PO BID 180 Days #90 tab hydrALAZINE HCL [Apresoline] 25 mg PO BID 180 Days #90 tab Continue ALPRAZolam [Xanax] 0.5 mg PO BID HYDROcodone/APAP 7.5-325MG [[place] 7.5-325] 1 tab PO Q8H Ergocalciferol (Vitamin D2) [Drisdol (50,000 Iu)] 1,250 mcg PO Q14D glipiZIDE [Glucotrol] 5 mg PO BID Discontinued carvediloL [Coreg] 6.25 mg PO BID-W/MEALS Discharge Medication List ALPRAZolam [Xanax] 0.5 mg PO BID 06/13/21 [History] glipiZIDE [Glucotrol] 5 mg PO BID 06/13/21 [History] Ergocalciferol (Vitamin D2) [Drisdol (50,000 Iu)] 1,250 mcg PO Q14D 09/29/23 [History] HYDROcodone/APAP 7.5-325MG [[place] 7.5-325] 1 tab PO Q8H 09/29/23 [History] amLODIPine [Norvasc] 5 mg PO BID 180 Days #90 tab 12/23/23 [Rx] hydrALAZINE HCL [Apresoline] 25 mg PO BID 180 Days #90 tab 12/23/23 [Rx] Follow up Appointment(s)/Referral(s): Tatum Hardy MD [Primary Care Provider] - 1-2 days Don Hughes MD [STAFF PHYSICIAN] - 1 Week
[2023-12-23] MEDS ORDERED: carvediloL 6.25 MG TAB PO SCH (17:30)
[2023-12-23] MEDS ORDERED: carvediloL 3.125 MG TAB PO SCH (17:30)
[2023-12-26] MEDS ORDERED: ERGOCALCIFEROL 1,250 MCG (50,000 IU) CAPSULE PO SCH (09:00)
== END 2023-12-23 16:17 | disposition home or self-care (01) ==
LOC: EC 08:00 → 6NMEDSUR 12:46
PROVIDERS: ADMIT Internal Medicine; ATTEND Internal Medicine
DX: R07.9 Chest pain, unspecified (principal); I16.0 Hypertensive urgency; R06.02 Shortness of breath; R13.10 Dysphagia, unspecified; I25.10 Atherosclerotic heart disease of native coronary artery without angina pectoris; I71.21 Aneurysm of the ascending aorta, without rupture; I12.9 Hypertensive chronic kidney disease with stage 1 through stage 4 chronic kidney disease, or unspecified chronic kidney disease; N18.9 Chronic kidney disease, unspecified; F41.9 Anxiety disorder, unspecified; N40.0 Benign prostatic hyperplasia without lower urinary tract symptoms; E11.22 Type 2 diabetes mellitus with diabetic chronic kidney disease; Z85.51 Personal history of malignant neoplasm of bladder; Z87.891 Personal history of nicotine dependence; Z79.84 Long term (current) use of oral hypoglycemic drugs; Z79.899 Other long term (current) drug therapy
CPT/HCPCS: 96372 ×2; 96375; 96361; 96374; 99285; 36415; 93005; 93306; 93351; 80053 ×2; 83690; 83735; 84484; 85025 ×2; 85610; 85730; 81001; 71046; 71275; 74177; G0378 ×2; J1250; J2270; J0360; J1644 ×2; Q9967

== ENCOUNTER 2024-03-30 08:20 | Day surgery (SDC) | payer MEDICARE ==
[2024-03-29 10:57] VITALS: BMI 28.9
[2024-03-30 08:44] VITALS: TEMP 96.7
[2024-03-30 08:51] LABS: Glucose,Whole Blood 110 mg/dL (70-110)
[2024-03-30] MEDS: IV FLUID CONTINUATION 1,000 ML IV ONE (08:52)
[2024-03-30] MEDS ORDERED: PROPOFOL 10 MG/ML 20 ML VIAL IV ONE (09:17)
[2024-03-30] MEDS ORDERED: LIDOCAINE 1% INJ 10MG/ML (20 ML MDV) ONE (09:17)
--- NOTE | 2024-03-30 09:28 | P.PCN ---
Date of Procedure: 03/30/24 Procedure(s) Performed: BRIEF HISTORY: Patient is a 83-year-old, pleasant, white male scheduled for an upper endoscopy as a part evaluation of intermittent dysphagia to solids for the last 2 years duration. He feels he has food stuck in his throat area and often happens with solids and pills. He denies any heartburn.. PROCEDURE PERFORMED: Esophagogastroduodenoscopy with biopsy. PREOPERATIVE DIAGNOSIS: Intermittent dysphagia to solids 2 years duration. IV sedation per anesthesia. PROCEDURE: After informed consent was obtained, the patient was brought into the endoscopy unit. IV sedation was administered by Anesthesia under continuous monitoring. Initially the Olympus GIF-140 video endoscope was inserted into the mouth. Esophagus intubated with some difficulty just above mild cricopharyngeal dysfunction. Zenker's diverticulum identified. The scope was gradually advanced into the stomach and duodenum and carefully examined. The bulb and the second part of the duodenum appeared normal. The scope at this time was withdrawn to the stomach, adequately insufflated with air, and upon careful examination, mucosa of the antrum, body, cardia and the fundus appeared normal. The scope was then withdrawn into the esophagus. The GE junction was located at 41 cm from the incisors. There were 2 superficial erosions in the distal esophagus consistent with LA grade B reflux esophagitis. Also there was a 3 mm tongue of Dean's appearing mucosa just proximal to the GE junction which was biopsied. Rest of the esophagus appeared normal and the patient tolerated the procedure well. IMPRESSION: 1. Mild cricopharyngeal dysfunction but no evidence of esophageal stricture Zenker's diverticulum. 2. Linear erosions in the distal esophagus consistent with LA grade B reflux esophagitis and short segment Dean's esophagus. RECOMMENDATIONS: The findings of this examination were discussed with the patient as well as his family. He was advised to continue with soft diet.. Follow-up with biopsy results. Trial of omeprazole 20 mg daily and was briefly educated about antireflux measures.
[2024-03-30 09:48] VITALS: BP 141/77; PULSE 54; RESP 16
== END 2024-03-30 10:20 | disposition home or self-care (01) ==
LOC: ORWHC2ENDO 08:20
PROVIDERS: ATTEND Internal Medicine Gastroenterology
DX: K20.90 Esophagitis, unspecified without bleeding (principal); I10 Essential (primary) hypertension; E11.9 Type 2 diabetes mellitus without complications; M19.90 Unspecified osteoarthritis, unspecified site; Z79.899 Other long term (current) drug therapy; Z85.51 Personal history of malignant neoplasm of bladder; Z79.1 Long term (current) use of non-steroidal anti-inflammatories (NSAID)
CPT/HCPCS: 43239; J2003; J2704; 88305

== ENCOUNTER 2024-06-07 09:00 | Observation (INO) | payer MEDICARE ==
--- NOTE | 2024-06-07 09:36 | ED ---
SOB HPI - General Chief Complaint: Shortness of Breath Stated Complaint: CHEST PAIN,SOB Time Seen by Provider: 06/07/24 09:34 Source: patient, RN notes reviewed, old records reviewed Mode of arrival: ambulatory Limitations: no limitations - History of Present Illness Initial Comments: 83-year-old male with a past medical history significant of hypertension, diabetes mellitus and bladder cancer not currently on chemo or radiation presented to the emergency department for evaluation of shortness of breath. Patient states this has been gradually getting worse over the past couple of months. He states about a week ago he was having fevers and chills and feeling ill. He treated fevers with Tylenol. He states this morning he also had fevers and was laying in bed under the covers trying to "sweated out". Patient states he was scheduled to follow-up with PCP, Dr. His Fontenot in office today for medication refills but upon stating he had a stinging chest pain they prompted him to come to the emergency department. Patient states for the past 3 to 4 days he has been having a left-sided stinging chest pain. No radiation of the pain. Patient denies any history of MIs or cardiac stents. Patient did have dobutamine stress test completed in December 2023 which was negative. He denies any dizziness, lightheadedness, nausea or vomiting. He denies any exertional dyspnea, orthopnea or peripheral edema. No other complaints at this time - Related Data Home Medications Medication Instructions Recorded Confirmed ALPRAZolam [Xanax] 0.5 mg PO BID 06/13/21 06/07/24 glipiZIDE [Glucotrol] 5 mg PO BID 06/13/21 06/07/24 Ergocalciferol (Vitamin D2) 1,250 mcg PO Q7D 09/29/23 06/07/24 [Drisdol (50,000 Iu)] HYDROcodone/APAP 7.5-325MG [[place] 1 tab PO TID 09/29/23 06/07/24 7.5-325] carvediloL [Coreg] 6.25 mg PO BID 03/29/24 06/07/24 Acetaminophen Tab [Tylenol Tab] 1,000 mg PO Q6HR PRN 06/07/24 06/07/24 Omeprazole 20 mg PO AC-BRKFST 06/07/24 06/07/24 amLODIPine [Norvasc] 5 mg PO BID 06/07/24 06/07/24 hydrALAZINE HCL [Apresoline] 25 mg PO BID 06/07/24 06/07/24 Allergies Allergy/AdvReac Type Severity Reaction Status Date / Time bee venom protein (honey bee) Allergy Anaphylaxis Verified 06/07/24 11:09 Review of Systems ROS Statement: Those systems with pertinent positive or pertinent negative responses have been documented in the HPI. ROS Other: All systems not noted in ROS Statement are negative. Past Medical History Past Medical History: Cancer, Diabetes Mellitus, Hypertension, Osteoarthritis (OA) Additional Past Medical History / Comment(s): stress test done one month ago, bladder cancer diagnosed 02/2021 History of Any Multi-Drug Resistant Organisms: None Reported Past Surgical History: Bladder Surgery Additional Past Surgical History / Comment(s): tumors removed from bladder, colonoscopy, EGD , kidney only has one since Past Anesthesia/Blood Transfusion Reactions: No Reported Reaction Additional Past Anesthesia/Blood Transfusion Reaction / Comment(s): no blood transfusion Past Psychological History: Anxiety Smoking Status: Former smoker Past Alcohol Use History: Occasional Past Drug Use History: None Reported - Past Family History Mother Family Medical History: Cancer Additional Family Medical History / Comment(s): jaw cancer Father History Unknown: Yes General Exam Limitations: no limitations General appearance: alert, in no apparent distress ENT exam: Present: normal exam, normal oropharynx, mucous membranes moist Respiratory exam: Present: normal lung sounds bilaterally. Absent: respiratory distress, wheezes, rales, rhonchi, stridor Cardiovascular Exam: Present: regular rate, normal rhythm, normal heart sounds. Absent: systolic murmur, diastolic murmur, rubs, gallop, clicks Extremities exam: Present: normal inspection, full ROM, normal capillary refill. Absent: tenderness, pedal edema, joint swelling, calf tenderness Neurological exam: Present: alert, oriented X3, CN II-XII intact Skin exam: Present: warm, dry, intact, normal color. Absent: rash Course Vital Signs 06/07/24 06/07/24 09:11 12:25 Temperature 98.1 F Pulse Rate 85 100 Respiratory 18 20 Rate Blood Pressure 141/54 178/83 O2 Sat by Pulse 98 93 L Oximetry - Reevaluation(s) Reevaluation #1: 06/07/24 12:[address] Hardy for admission HEART score 4. Medical Decision Making - Medical Decision Making Was pt. sent in by a medical professional or institution (, KONSTANTIN, SOCIAL SCIENCE PROFESSOR, urgent care, hospital, or alf...) When possible be specific @ -No Did you speak to anyone other than the patient for history (EMS, parent, family, police, friend...)? What history was obtained from this source @ -No Did you review nursing and triage notes (agree or disagree)? Why? @ -I reviewed and agree with nursing and triage notes Were old charts reviewed (outside hosp., previous admission, EMS record, old EKG, old radiological studies, urgent care reports/EKG's, alf records)? Report findings @ -No old charts were reviewed Differential Diagnosis (chest pain, altered mental status, abdominal pain women, abdominal pain men, vaginal bleeding, weakness, fever, dyspnea, syncope, headache, dizziness, GI bleed, back pain, seizure, CVA, palpatations, mental health, musculoskeletal)? @ -Differential Dyspnea:Coronary syndrome, arrhythmia, tamponade, asthma, COPD, pulmonary embolism, pneumonia, pneumothorax, pulmonary effusion, anaphylaxis, diabetic ketoacidosis, flailed chest, pulmonary contusion, diaphragmatic rupture, anemia, neuromuscular, this is not meant to be an all-inclusive list. EKG interpreted by me (3pts min.). @ -As above X-rays interpreted by me (1pt min.). @ -CXR interpreted by me negative for focal consolidations, pneumothorax pleural effusions. CT interpreted by me (1pt min.). @ -None done U/S interpreted by me (1pt. min.). @ -None done What testing was considered but not performed or refused? (CT, X-rays, U/S, labs)? Why? @ -CT angio chest was considered but not performed given patient has a single kidney and kidney disease. What meds were considered but not given or refused? Why? @ -None Did you discuss the management of the patient with other professionals (professionals i.e. KONSTANTIN Becker, SOCIAL SCIENCE PROFESSOR, lab, RT, psych nurse, social sciences instructor, health education coordinator, teacher, officer lieutenant, caseworker)? Give summary @ -Yes, case discussed with Dr. Hardy for admission. Was smoking cessation discussed for >3mins.? @ -No Was critical care preformed (if so, how long)? @ -No Were there social determinants of health that impacted care today? How? (Homelessness, low income, unemployed, alcoholism, drug addiction, transportatio n, low edu. Level, literacy, decrease access to med. care, usp, rehab)? @ -No Was there de-escalation of care discussed even if they declined (Discuss DNR or withdrawal of care, Hospice)? DNR status @ -No What co-morbidities impacted this encounter? (DM, HTN, Smoking, COPD, CAD, Cancer, CVA, ARF, Chemo, Hep., AIDS, mental health diagnosis, sleep apnea, morbid obesity)? @ -Bladder cancer, diabetes mellitus, CKD, single kidney Was patient admitted / discharged? Hospital course, mention meds given and route, prescriptions, significant lab abnormalities, going to OR and other pertinent info. @ -Admitted 83-year-old male presented the ER for evaluation of shortness of breath and chest pain. Vitals upon arrival within acceptable limits. Patient in no signs acute distress nontoxic-appearing. Cardiac workup with an undetectable troponin. Stage III kidney disease with a GFR of 30, BUN 37 and creatinine 1.99. EKG showing sinus rhythm. Viral swabs negative. Chest x-ray negative. Given patient's age and comorbidities, admission was considered and discussed for cardiac rule out with Dr. Hardy who accepts admission. Patient agreeable. Case discussed with ED attending, Dr. Canales. Undiagnosed new problem with uncertain prognosis? @ -No Drug Therapy requiring intensive monitoring for toxicity (Heparin, Nitro, Insulin, Cardizem)? @ -No Were any procedures done? @ -No Diagnosis/symptom? @ -Chest pain Acute, or Chronic, or Acute on Chronic? @ -Acute Uncomplicated (without systemic symptoms) or Complicated (systemic symptoms)? @ -Complicated Side effects of treatment? @ -No Exacerbation, Progression, or Severe Exacerbation? @ -No Poses a threat to life or bodily function? How? (Chest pain, [place], [place], pneumonia, PE, COPD, DKA, ARF, appy, cholecystitis, CVA, Diverticulitis, Homicidal, Suicidal, threat to staff... and all critical care pts) @ -Yes, cannot rule out ACS. - Lab Data Result diagrams: 06/07/24 09:44 06/07/24 09:44 Lab Results 06/07/24 06/07/24 06/07/24 Range/Units 09:44 09:44 09:44 WBC 6.8 (3.8-10.6) k/uL RBC 4.90 (4.30-5.90) m/uL Hgb 15.4 (13.0-17.5) gm/dL Hct 46.0 (39.0-53.0) % MCV 93.8 (80.0-100.0) fL MCH 31.3 (25.0-35.0) pg MCHC 33.4 (31.0-37.0) g/dL RDW 12.7 (11.5-15.5) % Plt Count 291 (150-450) k/uL MPV 7.2 Neutrophils % 65 % Lymphocytes % 26 % Monocytes % 6 % Eosinophils % 2 % Basophils % 1 % Neutrophils # 4.4 (1.3-7.7) k/uL Lymphocytes # 1.7 (1.0-4.8) k/uL Monocytes # 0.4 (0-1.0) k/uL Eosinophils # 0.1 (0-0.7) k/uL Basophils # 0.0 (0-0.2) k/uL PT (10.0-12.5) sec INR (<1.2) APTT (22.0-30.0) sec Sodium 139 (137-145) mmol/L Potassium 4.6 (3.5-5.1) mmol/L Chloride 106 (98-107) mmol/L Carbon Dioxide 20 L (22-30) mmol/L Anion Gap 13 mmol/L BUN 37 H (9-20) mg/dL Creatinine 1.99 H (0.66-1.25) mg/dL Est GFR (CKD-EPI)AfAm 35 (>60 ml/min/1.73 sqM) Est GFR (CKD-EPI)NonAf 30 (>60 ml/min/1.73 sqM) Glucose 199 H (74-99) mg/dL Calcium 9.6 (8.4-10.2) mg/dL Total Bilirubin 1.0 (0.2-1.3) mg/dL AST 23 (17-59) U/L ALT 17 (4-49) U/L Alkaline Phosphatase 51 (38-126) U/L Troponin I <0.012 (0.000-0.034) ng/mL Total Protein 7.2 (6.3-8.2) g/dL Albumin 4.6 (3.5-5.0) g/dL Influenza Type A (PCR) (Not Detectd) Influenza Type B (PCR) (Not Detectd) RSV (PCR) (Not Detectd) SARS-CoV-2 (PCR) (Not Detectd) 06/07/24 06/07/24 Range/Units 09:44 11:20 WBC (3.8-10.6) k/uL RBC (4.30-5.90) m/uL Hgb (13.0-17.5) gm/dL Hct (39.0-53.0) % MCV (80.0-100.0) fL MCH (25.0-35.0) pg MCHC (31.0-37.0) g/dL RDW (11.5-15.5) % Plt Count (150-450) k/uL MPV Neutrophils % % Lymphocytes % % Monocytes % % Eosinophils % % Basophils % % Neutrophils # (1.3-7.7) k/uL Lymphocytes # (1.0-4.8) k/uL Monocytes # (0-1.0) k/uL Eosinophils # (0-0.7) k/uL Basophils # (0-0.2) k/uL PT 11.4 (10.0-12.5) sec INR 1.0 (<1.2) APTT 22.4 (22.0-30.0) sec Sodium (137-145) mmol/L Potassium (3.5-5.1) mmol/L Chloride (98-107) mmol/L Carbon Dioxide (22-30) mmol/L Anion Gap mmol/L BUN (9-20) mg/dL Creatinine (0.66-1.25) mg/dL Est GFR (CKD-EPI)AfAm (>60 ml/min/1.73 sqM) Est GFR (CKD-EPI)NonAf (>60 ml/min/1.73 sqM) Glucose (74-99) mg/dL Calcium (8.4-10.2) mg/dL Total Bilirubin (0.2-1.3) mg/dL AST (17-59) U/L ALT (4-49) U/L Alkaline Phosphatase (38-126) U/L Troponin I (0.000-0.034) ng/mL Total Protein (6.3-8.2) g/dL Albumin (3.5-5.0) g/dL Influenza Type A (PCR) Not Detected (Not Detectd) Influenza Type B (PCR) Not Detected (Not Detectd) RSV (PCR) Not Detected (Not Detectd) SARS-CoV-2 (PCR) Not Detected (Not Detectd) - EKG Data -: EKG Interpreted by Me EKG Comments: EKG taken at 9: 06 showing a sinus rhythm. 0.25m ST elevation noted in aVR and inverted T wave V3. Ventricular rate 86, DE interval 149, QRS duration 89, QT/QTc 365/408 - Radiology Data Radiology results: report reviewed, image reviewed Disposition Clinical Impression: Chest pain Disposition: ADMITTED IP TO THIS [facility] Condition: Stable Referrals: Tatum Hardy MD [Primary Care Provider] - 1-2 days Time of Disposition: 12:26
[2024-06-07] MEDS: SODIUM CHLORIDE 0.9% 500 ML 500 ML IV ONE (09:45)
[2024-06-07 10:18] LABS: Basophils % (A) 1 %; Eosinophils # (A) 0.1 k/uL (0-0.7); Eosinophils % (A) 2 %; HGB 15.4 gm/dL (13.0-17.5); Lymphocytes # (A) 1.7 k/uL (1.0-4.8); Lymphocytes % (A) 26 %; MCH 31.3 pg (25.0-35.0); MCHC 33.4 g/dL (31.0-37.0); MCV 93.8 fL (80.0-100.0); Mean Platelet Volume 7.2; Monocytes # (A) 0.4 k/uL (0-1.0); Monocytes % (A) 6 %; Neutrophils # (A) 4.4 k/uL (1.3-7.7); Neutrophils % (A) 65 %; Platelet Count 291 k/uL (150-450); RDW 12.7 % (11.5-15.5); WBC 6.8 k/uL (3.8-10.6)
[2024-06-07 10:22] LABS: ALT 17 U/L (4-49); AST 23 U/L (17-59); African American GFR (CKD) 35 (>60 ml/min/1.73 sqM); Albumin 4.6 g/dL (3.5-5.0); Alkaline Phosphatase 51 U/L (38-126); Anion Gap 13 mmol/L; Blood Urea Nitrogen 37 mg/dL (9-20); Calcium 9.6 mg/dL (8.4-10.2); Carbon Dioxide 20 mmol/L (22-30); Chloride 106 mmol/L (98-107); Glucose 199 mg/dL (74-99); Non-African American GFR(CKD) 30 (>60 ml/min/1.73 sqM); Potassium 4.6 mmol/L (3.5-5.1); Sodium 139 mmol/L (137-145); Total Protein 7.2 g/dL (6.3-8.2)
--- NOTE | 2024-06-07 10:25 | XR ---
EXAMINATION TYPE: XR chest 2V DATE OF EXAM: 06/07/2024 CLINICAL INDICATION: Male, 83 years old with history of difficulty breathing, TECHNIQUE: Frontal and lateral views of the chest are obtained. COMPARISON: Chest x-ray December 22, 2023 FINDINGS: There is no focal air space opacity, pleural effusion, or pneumothorax seen. The cardiac silhouette size is stable and within normal limits. The osseous structures are intact. IMPRESSION: No acute cardiopulmonary process. No significant change from most recent prior. [facility], , 06/07/2024 10:22 AM
[2024-06-07 11:00] LABS: Influenza A Not Detected (Not Detectd); Influenza B Not Detected (Not Detectd); RSV Not Detected (Not Detectd)
[2024-06-07 11:55] LABS: Partial Thromboplastin Time 22.4 sec (22.0-30.0); Prothrombin Time 11.4 sec (10.0-12.5)
[2024-06-07] MEDS ORDERED: ACETAMINOPHEN TAB 325 MG TAB PO PRN (12:23)
[2024-06-07] MEDS ORDERED: NALOXONE 0.4 MG/ML 1 ML VIAL IV PRN (12:23)
[2024-06-07] MEDS: SODIUM CHLORIDE 0.9% 1,000 ML IV SCH (13:26)
[2024-06-07] MEDS: LORazepam 1 MG TAB PO STA (14:42)
[2024-06-07] MEDS ORDERED: ACETAMINOPHEN TAB 500 MG TAB PO PRN (17:52)
[2024-06-07] MEDS: ERGOCALCIFEROL 1,250 MCG (50,000 IU) CAPSULE PO SCH (18:17)
[2024-06-07] MEDS: amLODIPine 5 MG TAB PO SCH (20:22)
[2024-06-07] MEDS: hydrALAZINE HCL 25 MG TAB PO SCH (20:22)
[2024-06-07] MEDS: ALPRAZolam 0.5 MG TAB PO SCH (20:22)
[2024-06-07] MEDS: carvediloL 6.25 MG TAB PO SCH (20:23)
[2024-06-07] MEDS: glipiZIDE 5 MG TAB PO SCH (20:23)
[2024-06-07] MEDS: HYDROcodone/APAP 7.5-325MG 1 EACH TAB PO SCH (21:11)
[2024-06-08] MEDS ORDERED: DEXTROSE 50% SYRINGE 50 ML IVP PRN ×2 (01:13)
[2024-06-08] MEDS: SODIUM CHLORIDE 0.9% 1,000 ML IV SCH (04:07)
[2024-06-08 06:12] LABS: Glucose,Whole Blood 119 mg/dL (70-110)
[2024-06-08] MEDS: INSULIN LISPRO (HumaLOG) 100 UNIT/ML 10 mL VL SQ SCH (06:17)
[2024-06-08] MEDS: PANTOPRAZOLE 40 MG TABLET PO SCH (06:23)
[2024-06-08 08:23] LABS: Basophils # (A) 0.05 X 10*3/uL (0.00-0.10); Basophils % (A) 0.9 %; Eosinophils # (A) 0.15 X 10*3/uL (0.04-0.35); Eosinophils % (A) 2.6 %; HGB 13.1 g/dL (13.0-17.0); Lymphocytes # (A) 2.25 X 10*3/uL (0.90-5.00); Lymphocytes % (A) 39.5 %; MCH 31.9 pg (27.0-32.0); MCHC 33.6 g/dL (32.0-37.0); MCV 94.9 FL (80.0-97.0); Mean Platelet Volume 9.8 FL (9.5-12.2); Monocytes # (A) 0.57 X 10*3/uL (0.20-1.00); NRBC Per 100 WBC 0 X 10*3/uL (0.00-0.01); Neutrophils # (A) 2.64 X 10*3/uL (1.80-7.70); Neutrophils % (A) 46.3 %; Platelet Count 208 X 10*3/uL (140-440); RBC 4.11 X 10*6/uL (4.40-5.60); RDW 12.6 % (11.5-14.5)
[2024-06-08 08:48] VITALS: BP 169/79; PULSE 49; RESP 15; TEMP 98
[2024-06-08 09:07] LABS: ALT 13 U/L (10-49); AST 17 U/L (14-35); Albumin 3.6 g/dL (3.8-4.9); Alkaline Phosphatase 50 U/L (41-126); BUN/Creat Ratio 17.15 Ratio (12.00-20.00); Blood Urea Nitrogen 34.3 mg/dL (9.0-27.0); Calcium 8.7 mg/dL (8.7-10.3); Carbon Dioxide 21.8 mmol/L (21.6-31.8); Chloride 111 mmol/L (96-109); Glucose 132 mg/dL (70-110); Potassium 4.1 mmol/L (3.5-5.5); Sodium 143 mmol/L (135-145); Total Bilirubin 0.3 mg/dL (0.3-1.2); Total Protein 5.6 g/dL (6.2-8.2)
--- NOTE | 2024-06-08 09:09 | P.CRDCN ---
History of Present Illness History of present illness: HISTORY OF PRESENT ILLNESS: This is a 83-year-old male with a past medical history significant for hypertension, diabetes, and bladder cancer. Patient used to follow in the office with Dr. Hughes but has not been seen since April 2021. We have been asked to see the patient in consultation for chest pain. Patient examined at the bedside. Patient was at his PCP office yesterday as he has been feeling ill for the past week and complaining of chills. The patient mentioned that he was having some chest pain over the past few days and was directed to come to the emergency room. Patient states over the past 3 to 4 days he has been having " stinging" chest pain. At the time of examination, patient denies any chest pain or pressure. He denies shortness of breath. Vital signs are stable. Blood pressure slightly on the higher side with a systolic in the 160s. DIAGNOSTICS: - EKG reveals sinus mechanism with nonspecific ST-T wave changes - Chest xray negative for acute process - Laboratory data: WBC 5.7. Hemoglobin 13.1. Platelet count 208. Sodium 139. Potassium 4.6. BUN 37. Creatinine 1.99. Troponin negative x 2. - Current home cardiac medications include carvedilol 6.25 mg twice a day, amlodipine 5 mg twice a day, hydralazine 25 mg twice a day. - Most recent echocardiogram obtained in December 2023 revealed ejection fraction 55 to 60%, severe concentric LVH, mild mitral regurgitation, mild tricuspid regurgitation, trace to mild aortic regurgitation - Patient underwent dobutamine stress echo in December 2023 which was negative for ischemia REVIEW OF SYSTEMS: At the time of my exam: CONSTITUTIONAL: Denies fever or chills. HEENT: Denies blurred vision, vision changes, or eye pain. Denies hemoptysis CARDIOVASCULAR: Denies chest pain. Denies orthopnea. Denies PND. Denies palpitations RESPIRATORY: Denies shortness of breath. GASTROINTESTINAL: Denies abdominal pain. Denies nausea or vomiting. HEMATOLOGIC: Denies bleeding disorders. GENITOURINARY: Denies any blood in urine. SKIN: Denies pruitis. Denies rash. PHYSICAL EXAM: VITAL SIGNS: Reviewed. GENERAL: Well-developed in no acute distress. HEENT: Head is normocephalic. Pupils are equal, round. Sclerae anicteric. Mucous membranes of the mouth are moist. Neck supple. No JVD or thyromegaly LUNGS: Respirations even and unlabored. Lungs essentially clear to auscultation bilaterally. HEART: Regular rate and rhythm. S1 and S2 heard. ABDOMEN: Soft. Nondistended. Nontender. EXTREMITIES: Normal range of motion. No clubbing or cyanosis. Peripheral pulses intact. No lower extremity edema NEUROLOGIC: Awake and alert. Oriented x 3. ASSESSMENT: Chest pain, troponin negative x 2, with negative dobutamine stress echo in December 2023 Severe concentric LVH Chronic shortness of breath Chronic dysphagia LAD and circumflex coronary artery calcifications per CTA, 12/2023 Chronic kidney disease Mild ascending aortic aneurysm measuring 4.2 cm History of hemoptysis, status post bronchoscopy 09/2023, pathology negative for malignant cells Diabetes History of bladder cancer, followed outpatient with Dr. Carmen [place] Former nicotine dependence PLAN: An acute coronary event has been ruled out No need to repeat echocardiogram as this was performed in December 2023 Resume home cardiac medications Increase hydralazine to 50 mg twice a day for optimal blood pressure control Add aspirin and Lipitor No further workup from a cardiac standpoint Discharge per medicine Nurse practitioner note has been reviewed by physician. Signing provider agrees with the documented findings, assessment, and plan of care documented by SUPERVISORY GEOGRAPHER as a scribe. Past Medical History Past Medical History: Cancer, Diabetes Mellitus, Hypertension, Osteoarthritis (OA) Additional Past Medical History / Comment(s): bladder cancer diagnosed 02/2021 History of Any Multi-Drug Resistant Organisms: None Reported Past Surgical History: Bladder Surgery Additional Past Surgical History / Comment(s): tumors removed from bladder, colonoscopy, EGD , kidney only has one since Past Anesthesia/Blood Transfusion Reactions: No Reported Reaction Additional Past Anesthesia/Blood Transfusion Reaction / Comment(s): no blood transfusion Past Psychological History: Anxiety Smoking Status: Former smoker Past Alcohol Use History: Occasional Additional Past Alcohol Use History / Comment(s): 2019 quit smoking Past Drug Use History: None Reported - Past Family History Mother Family Medical History: Cancer Additional Family Medical History / Comment(s): jaw cancer Father History Unknown: Yes Medications and Allergies Home Medications Medication Instructions Recorded Confirmed Type ALPRAZolam [Xanax] 0.5 mg PO BID 06/13/21 06/07/24 History glipiZIDE [Glucotrol] 5 mg PO BID 06/13/21 06/07/24 History Ergocalciferol (Vitamin D2) 1,250 mcg PO Q7D 09/29/23 06/07/24 History [Drisdol (50,000 Iu)] HYDROcodone/APAP 7.5-325MG [[place] 1 tab PO TID 09/29/23 06/07/24 History 7.5-325] carvediloL [Coreg] 6.25 mg PO BID 03/29/24 06/07/24 History Acetaminophen Tab [Tylenol Tab] 1,000 mg PO Q6HR PRN 06/07/24 06/07/24 History Omeprazole 20 mg PO AC-BRKFST 06/07/24 06/07/24 History amLODIPine [Norvasc] 5 mg PO BID 06/07/24 06/07/24 History hydrALAZINE HCL [Apresoline] 25 mg PO BID 06/07/24 06/07/24 History Allergies Allergy/AdvReac Type Severity Reaction Status Date / Time bee venom protein (honey bee) Allergy Anaphylaxis Verified 06/07/24 11:09 Physical Exam Vitals: Vital Signs Temp Pulse Pulse Resp BP BP BP 06/08/24 08:06 06/08/24 07:35 98.0 F 49 L 15 169/79 06/08/24 02:00 98.1 F 50 L 16 149/72 06/07/24 22:52 97.5 F L 61 18 169/89 06/07/24 20:21 89 18 147/95 06/07/24 15:26 85 18 155/93 06/07/24 12:25 100 20 178/83 06/07/24 09:11 98.1 F 85 18 141/54 Pulse Ox 06/08/24 08:06 97 06/08/24 07:35 98 06/08/24 02:00 96 06/07/24 22:52 99 06/07/24 20:21 97 06/07/24 15:26 96 06/07/24 12:25 93 L 06/07/24 09:11 98 Intake and Output 06/07/24 06/08/24 06/08/24 22:59 06:59 14:59 Intake Total 540 Balance 540 Intake: Oral 540 Other: Weight 88.451 kg Results 06/08/24 05:08 06/07/24 09:44 Cardiac Enzymes 06/07/24 06/07/24 06/07/24 Range/Units 09:44 09:44 14:18 AST 23 (17-59) U/L Troponin I <0.012 <0.012 (0.000-0.034) ng/mL Coagulation 06/07/24 Range/Units 11:20 PT 11.4 (10.0-12.5) sec APTT 22.4 (22.0-30.0) sec CBC 06/07/24 06/08/24 Range/Units 09:44 05:08 WBC 6.8 5.70 (3.8-10.6) k/uL RBC 4.90 4.11 L (4.30-5.90) m/uL Hgb 15.4 13.1 (13.0-17.5) gm/dL Hct 46.0 39.0 L (39.0-53.0) % Plt Count 291 208 (150-450) k/uL Comprehensive Metabolic Panel 06/07/24 Range/Units 09:44 Sodium 139 (137-145) mmol/L Potassium 4.6 (3.5-5.1) mmol/L Chloride 106 (98-107) mmol/L Carbon Dioxide 20 L (22-30) mmol/L BUN 37 H (9-20) mg/dL Creatinine 1.99 H (0.66-1.25) mg/dL Glucose 199 H (74-99) mg/dL Calcium 9.6 (8.4-10.2) mg/dL AST 23 (17-59) U/L ALT 17 (4-49) U/L Alkaline Phosphatase 51 (38-126) U/L Total Protein 7.2 (6.3-8.2) g/dL Albumin 4.6 (3.5-5.0) g/dL Current Medications Generic Name Dose Route Start Last Admin Trade Name Freq PRN Reason Stop Dose Admin Acetaminophen 650 mg 06/07/24 12:23 Acetaminophen Tab 325 Mg Tab PO Q6HR PRN Mild Pain or Fever > 100.5 Acetaminophen 1,000 mg 06/07/24 17:52 Acetaminophen Tab 500 Mg Tab PO Q6HR PRN Pain or Fever > 100.5 Hydrocodone Bitart/Acetaminophen 1 each 06/07/24 22:00 06/08/24 08:12 Hydrocodone/Apap 7.5-325mg 1 Each Tab PO 1 each TID TAMMIE Administration Alprazolam 0.5 mg 06/07/24 21:00 06/08/24 08:10 Alprazolam 0.5 Mg Tab PO 0.5 mg BID TAMMIE Administration Amlodipine Besylate 5 mg 06/07/24 21:00 06/08/24 08:10 Amlodipine 5 Mg Tab PO 5 mg BID TAMMIE Administration Carvedilol 6.25 mg 06/07/24 21:00 06/08/24 08:10 Carvedilol 6.25 Mg Tab PO 6.25 mg BID TAMMIE Administration Dextrose/Water 25 ml 06/08/24 01:13 Dextrose 50% Syringe 50 Ml IVP PER PROTOCOL PRN Hypoglycemia Protocol Dextrose/Water 50 ml 06/08/24 01:13 Dextrose 50% Syringe 50 Ml IVP PER PROTOCOL PRN Hypoglycemia Protocol Glipizide 5 mg 06/07/24 21:00 06/08/24 08:10 Glipizide 5 Mg Tab PO 5 mg BID TAMMIE Administration Hydralazine HCl 25 mg 06/07/24 21:00 06/08/24 08:10 Hydralazine Hcl 25 Mg Tab PO 25 mg BID TAMMIE Administration Sodium Chloride 1,000 mls @ 20 mls/hr 06/08/24 01:15 06/08/24 04:07 Saline 0.9% IV 20 mls/hr .Q24H TAMMIE Administration Insulin Human Lispro 0 unit 06/08/24 07:30 06/08/24 06:17 Insulin Lispro (Humalog) 100 Unit/Ml 10 Ml Vl SQ Not Given ACHS TAMMIE Protocol Naloxone HCl 0.2 mg 06/07/24 12:23 Naloxone 0.4 Mg/Ml 1 Ml Vial IV Q2M PRN Opioid Reversal Pantoprazole Sodium 40 mg 06/08/24 07:30 06/08/24 06:23 Pantoprazole 40 Mg Tablet PO 40 mg AC-BRKFST TAMMIE Administration Intake and Output 06/07/24 06/08/24 06/08/24 22:59 06:59 14:59 Intake Total 540 Balance 540 Intake: Oral 540 Other: Weight 88.451 kg 06/08/24 05:08 06/07/24 09:44
[2024-06-08] MEDS: hydrALAZINE HCL 25 MG TAB PO STA (09:26)
--- NOTE | 2024-06-08 11:18 | P.HPIM ---
History of Present Illness H&P Date: 06/07/24 Power Shipman, is an 83-year-old male who presented to [facility] emergency room with a chief complaint of chest discomfort and shortness of breath that has been gradually getting worse over the past few months. He was evaluated in the emergency room vital examination on presentation revealed temp 98.1, heart rate 85, respiratory rate 18, blood pressure 141/54 with a pulse ox of 98% on room air Laboratory data reveals creatinine 1.99 bun 37 this does appear patient's baseline, white blood cell 6.8, hemoglobin 15.4, troponins negative x 3, RSV influenza and COVID-19 negative Testing in the emergency room revealed chest x-ray completed showing no acute cardiopulmonary process, EKG showing sinus rhythm Patient was admitted to medical floor for further evaluation and treatment. Cardiology services will be consulted Past medical history is significant bladder cancer in which he follows with Dr. Abbott, diabetes mellitus, hypertension, osteoarthritis, anxiety On review of systems patient is alert and oriented x 3. Patient denies any chest pain or shortness of breath at this time. Patient denies nausea vomiting or diarrhea. Patient denies any urinary burning or frequency Review of Systems Please refer to HPI otherwise unremarkable Past Medical History Past Medical History: Cancer, Diabetes Mellitus, Hypertension, Osteoarthritis (OA) Additional Past Medical History / Comment(s): stress test done one month ago, bladder cancer diagnosed 02/2021 History of Any Multi-Drug Resistant Organisms: None Reported Past Surgical History: Bladder Surgery Additional Past Surgical History / Comment(s): tumors removed from bladder, colonoscopy, EGD , kidney only has one since Past Anesthesia/Blood Transfusion Reactions: No Reported Reaction Additional Past Anesthesia/Blood Transfusion Reaction / Comment(s): no blood transfusion Past Psychological History: Anxiety Smoking Status: Former smoker Past Alcohol Use History: Occasional Past Drug Use History: None Reported - Past Family History Mother Family Medical History: Cancer Additional Family Medical History / Comment(s): jaw cancer Father History Unknown: Yes Medications and Allergies Home Medications Medication Instructions Recorded Confirmed Type ALPRAZolam [Xanax] 0.5 mg PO BID 06/13/21 06/07/24 History glipiZIDE [Glucotrol] 5 mg PO BID 06/13/21 06/07/24 History Ergocalciferol (Vitamin D2) 1,250 mcg PO Q7D 09/29/23 06/07/24 History [Drisdol (50,000 Iu)] HYDROcodone/APAP 7.5-325MG [[place] 1 tab PO TID 09/29/23 06/07/24 History 7.5-325] carvediloL [Coreg] 6.25 mg PO BID 03/29/24 06/07/24 History Acetaminophen Tab [Tylenol Tab] 1,000 mg PO Q6HR PRN 06/07/24 06/07/24 History Omeprazole 20 mg PO AC-BRKFST 06/07/24 06/07/24 History amLODIPine [Norvasc] 5 mg PO BID 06/07/24 06/07/24 History hydrALAZINE HCL [Apresoline] 25 mg PO BID 06/07/24 06/07/24 History Allergies Allergy/AdvReac Type Severity Reaction Status Date / Time bee venom protein (honey bee) Allergy Anaphylaxis Verified 06/07/24 11:09 Physical Exam Vitals: Vital Signs Temp Pulse Resp BP Pulse Ox 06/07/24 15:26 85 18 155/93 96 06/07/24 12:25 100 20 178/83 93 L 06/07/24 09:11 98.1 F 85 18 141/54 98 Intake and Output 06/07/24 06/07/24 06/07/24 06:59 14:59 22:59 Other: Weight 88.451 kg In general patient is alert and oriented x 3 in no distress HEENT head normocephalic and atraumatic Neck is supple no JVD no goiter no lymphadenopathy no carotid bruit Chest examination is clear to auscultation no crackles no wheezing Cardiac exam reveals regular heart sounds S1 and S2 no gallops no murmurs Abdomen is soft nontender no organomegaly with normal bowel sounds Extremity exam reveals no edema no cyanosis or clubbing Neurological examination reveals no gross focal deficits Results CBC & Chem 7: 06/08/24 05:08 06/08/24 05:08 Labs: Abnormal Lab Results - Last 24 Hours (Table) 06/07/24 Range/Units 09:44 Carbon Dioxide 20 L (22-30) mmol/L BUN 37 H (9-20) mg/dL Creatinine 1.99 H (0.66-1.25) mg/dL Glucose 199 H (74-99) mg/dL Assessment and Plan Assessment: 1. Shortness of breath 2. Chronic kidney disease patient is at baseline 3. History of bladder cancer with no evidence of recurrence patient follows with Urology servicsd 4. History of diabetes mellitus 5. History of anxiety disorder DVT prophylaxis Lovenox Cardiology services consulted Repeat labs ordered Time with Patient: Greater than 30 (Greater than 60% of the total time spent in counseling and coordination of care)
[2024-06-08 12:44] LABS: Glucose,Whole Blood 90 mg/dL (70-110)
--- NOTE | 2024-06-08 13:33 | P.DS ---
Providers Date of admission: 06/07/24 12:49 Expected date of discharge: 06/08/24 Attending physician: Tatum Hardy Consults: 06/08/24 01:41 Consult Physician Routine Consulting Provider: Shay Pompa Consult Reason/Comments: chest pain Do you want consulting provider notified?: Yes, Notify in am Primary care physician: Tatum Hardy [facility] Course: Discharge diagnosis 1. Shortness of breath 2. Chronic kidney disease patient is at baseline 3. History of bladder cancer with no evidence of recurrence patient follows with Urology servicsd 4. History of diabetes mellitus 5. History of anxiety disorder Hospital course Power Shipman, is an 83-year-old male who presented to [facility] emergency room with a chief complaint of chest discomfort and shortness of breath that has been gradually getting worse over the past few months. He was evaluated in the emergency room vital examination on presentation revealed temp 98.1, heart rate 85, respiratory rate 18, blood pressure 141/54 with a pulse ox of 98% on room air Laboratory data reveals creatinine 1.99 bun 37 this does appear patient's baseli ne, white blood cell 6.8, hemoglobin 15.4, troponins negative x 3, RSV influenza and COVID-19 negative Testing in the emergency room revealed chest x-ray completed showing no acute cardiopulmonary process, EKG showing sinus rhythm Patient was admitted to medical floor for further evaluation and treatment. Cardiology services will be consulted Past medical history is significant bladder cancer in which he follows with Dr. Abbott, diabetes mellitus, hypertension, osteoarthritis, anxiety On review of systems patient is alert and oriented x 3. Patient denies any chest pain or shortness of breath at this time. Patient denies nausea vomiting or diarrhea. Patient denies any urinary burning or frequency On 06/08/2024 patient is alert and oriented x 3 patient has been cleared for discharge from cardiology standpoint hydralazine increased. Patient denies chest pain or shortness of breath. Patient denies nausea vomiting or diarrhea. Patient denies any urinary burning or frequency patient to follow-up with PCP and consulting providers for further management Patient Condition at Discharge: Stable Plan - Discharge Summary Discharge Rx Participant: Yes New Discharge Prescriptions: New Atorvastatin [Lipitor] 20 mg PO HS 30 Days #30 tab hydrALAZINE HCL [Apresoline] 50 mg PO BID 30 Days #60 tab Aspirin 81 mg PO DAILY 30 Days #30 tab Continue ALPRAZolam [Xanax] 0.5 mg PO BID HYDROcodone/APAP 7.5-325MG [[place] 7.5-325] 1 tab PO TID Ergocalciferol (Vitamin D2) [Drisdol (50,000 Iu)] 1,250 mcg PO Q7D Acetaminophen Tab [Tylenol] 1,000 mg PO Q6HR PRN PRN Reason: Pain Or Fever > 100.5 glipiZIDE [Glucotrol] 5 mg PO BID carvediloL [Coreg] 6.25 mg PO BID amLODIPine [Norvasc] 5 mg PO BID Omeprazole 20 mg PO AC-BRKFST Discontinued hydrALAZINE HCL [Apresoline] 25 mg PO BID Discharge Medication List ALPRAZolam [Xanax] 0.5 mg PO BID 06/13/21 [History] glipiZIDE [Glucotrol] 5 mg PO BID 06/13/21 [History] Ergocalciferol (Vitamin D2) [Drisdol (50,000 Iu)] 1,250 mcg PO Q7D 09/29/23 [History] HYDROcodone/APAP 7.5-325MG [[place] 7.5-325] 1 tab PO TID 09/29/23 [History] carvediloL [Coreg] 6.25 mg PO BID 03/29/24 [History] Acetaminophen Tab [Tylenol] 1,000 mg PO Q6HR PRN 06/07/24 [History] Omeprazole 20 mg PO AC-BRKFST 06/07/24 [History] amLODIPine [Norvasc] 5 mg PO BID 06/07/24 [History] Aspirin 81 mg PO DAILY 30 Days #30 tab 06/08/24 [Rx] Atorvastatin [Lipitor] 20 mg PO HS 30 Days #30 tab 06/08/24 [Rx] hydrALAZINE HCL [Apresoline] 50 mg PO BID 30 Days #60 tab 06/08/24 [Rx] Follow up Appointment(s)/Referral(s): Tatum Hardy MD [Primary Care Provider] - 1-2 days Discharge Disposition: HOME SELF-CARE
[2024-06-08] MEDS ORDERED: ATORVASTATIN 20 MG TAB PO SCH (21:00)
[2024-06-08] MEDS ORDERED: hydrALAZINE HCL 50 MG TAB PO SCH (21:00)
[2024-06-09] MEDS ORDERED: ENOXAPARIN 40 MG/0.4 ML SYRINGE SQ SCH (09:00)
[2024-06-09] MEDS ORDERED: ASPIRIN 81 MG PO SCH (09:00)
== END 2024-06-08 14:40 | disposition home or self-care (01) ==
LOC: EC 09:00 → 6NMEDSUR 12:49
PROVIDERS: ADMIT Internal Medicine; ATTEND Internal Medicine
DX: R06.02 Shortness of breath (principal); R07.89 Other chest pain; E11.22 Type 2 diabetes mellitus with diabetic chronic kidney disease; I12.9 Hypertensive chronic kidney disease with stage 1 through stage 4 chronic kidney disease, or unspecified chronic kidney disease; N18.9 Chronic kidney disease, unspecified; F41.9 Anxiety disorder, unspecified; I25.10 Atherosclerotic heart disease of native coronary artery without angina pectoris; I71.21 Aneurysm of the ascending aorta, without rupture; R13.10 Dysphagia, unspecified; M19.90 Unspecified osteoarthritis, unspecified site; Z79.84 Long term (current) use of oral hypoglycemic drugs; Z79.899 Other long term (current) drug therapy; Z85.51 Personal history of malignant neoplasm of bladder; Z87.891 Personal history of nicotine dependence
CPT/HCPCS: 96360; 96361; 99285; 36415; 94760; 93005; 97161; 97165; 92610; 80053 ×2; 84484; 85025 ×2; 85610; 85730; 87636; 71046; G0378 ×2

== ENCOUNTER 2024-07-30 10:02 | Emergency (ER) | payer MEDICARE ==
[2024-07-30 10:19] VITALS: TEMP 98
--- NOTE | 2024-07-30 11:01 | ED ---
General Adult HPI - General Chief complaint: Shortness of Breath Stated complaint: trouble swallowing, LALO Time Seen by Provider: 07/30/24 10:28 Source: patient, RN notes reviewed Mode of arrival: ambulatory Limitations: no limitations - History of Present Illness Initial comments: This is an 83-year-old male with a history of hypertension, diabetes, and b ladder cancer not currently on chemo or radiation presents emergency department with complaints of intermittent chest pain, difficulty breathing, and difficulty swallowing. Patient states that he has had [address] Hughes over the past 6 months and will still experience difficulty in swallowing foods and liquids. Patient also reports intermittent chest pressure located in the center of his chest that is nonradiating with pain that will last anywhere between a few minutes to a few hours with no associated diaphoresis, nausea or vomiting. States that he is very anxious about his overall health and has been getting minimal sleep due to this. - Related Data Home Medications Medication Instructions Recorded Confirmed ALPRAZolam [Xanax] 0.5 mg PO BID 06/13/21 06/07/24 glipiZIDE [Glucotrol] 5 mg PO BID 06/13/21 06/07/24 Ergocalciferol (Vitamin D2) 1,250 mcg PO Q7D 09/29/23 06/07/24 [Drisdol (50,000 Iu)] HYDROcodone/APAP 7.5-325MG [[place] 1 tab PO TID 09/29/23 06/07/24 7.5-325] carvediloL [Coreg] 6.25 mg PO BID 03/29/24 06/07/24 Acetaminophen Tab [Tylenol] 1,000 mg PO Q6HR PRN 06/07/24 06/07/24 Omeprazole 20 mg PO AC-BRKFST 06/07/24 06/07/24 amLODIPine [Norvasc] 5 mg PO BID 06/07/24 06/07/24 Previous Rx's Medication Instructions Recorded Aspirin 81 mg PO DAILY 30 Days #30 tab 06/08/24 Atorvastatin [Lipitor] 20 mg PO HS 30 Days #30 tab 06/08/24 hydrALAZINE HCL [Apresoline] 50 mg PO BID 30 Days #60 tab 06/08/24 Allergies Allergy/AdvReac Type Severity Reaction Status Date / Time bee venom protein (honey bee) Allergy Anaphylaxis Verified 07/30/24 10:19 Review of Systems ROS Statement: Those systems with pertinent positive or pertinent negative responses have been documented in the HPI. ROS Other: All systems not noted in ROS Statement are negative. Past Medical History Past Medical History: Cancer, Diabetes Mellitus, Hypertension, Osteoarthritis (OA) Additional Past Medical History / Comment(s): stress test done one month ago, bladder cancer diagnosed 02/2021 History of Any Multi-Drug Resistant Organisms: None Reported Past Surgical History: Bladder Surgery Additional Past Surgical History / Comment(s): tumors removed from bladder, colonoscopy, EGD , kidney only has one since Past Anesthesia/Blood Transfusion Reactions: No Reported Reaction Additional Past Anesthesia/Blood Transfusion Reaction / Comment(s): no blood transfusion Past Psychological History: Anxiety Smoking Status: Former smoker Past Alcohol Use History: Occasional Past Drug Use History: None Reported - Past Family History Mother Family Medical History: Cancer Additional Family Medical History / Comment(s): jaw cancer Father History Unknown: Yes General Exam Limitations: no limitations ENT exam: Present: normal exam, mucous membranes moist Neck exam: Present: normal inspection. Absent: tenderness, meningismus, lymphadenopathy Respiratory exam: Present: normal lung sounds bilaterally. Absent: respiratory distress, wheezes, rales, rhonchi, stridor Cardiovascular Exam: Present: regular rate, normal rhythm, normal heart sounds. Absent: systolic murmur, diastolic murmur, rubs, gallop, clicks GI/Abdominal exam: Present: soft, normal bowel sounds. Absent: distended, tenderness, guarding, rebound, rigid Extremities exam: Present: normal inspection, full ROM, normal capillary refill. Absent: tenderness, pedal edema, joint swelling, calf tenderness Back exam: Present: normal inspection Skin exam: Present: warm, dry, intact, normal color. Absent: rash Course Vital Signs 07/30/24 10:14 Temperature 98 F Pulse Rate 57 L Respiratory 17 Rate Blood Pressure 170/89 O2 Sat by Pulse 97 Oximetry Medical Decision Making - Medical Decision Making Was pt. sent in by a medical professional or institution (, PA, CORPORATE INTERN, urgent care, hospital, or half-way...) When possible be specific @ -No Did you speak to anyone other than the patient for history (EMS, parent, family, police, friend...)? What history was obtained from this source @ -No Did you review nursing and triage notes (agree or disagree)? Why? @ -I reviewed and agree with nursing and triage notes Were old charts reviewed (outside hosp., previous admission, EMS record, old EKG, old radiological studies, urgent care reports/EKG's, half-way records)? Report findings @ -No old charts were reviewed Differential Diagnosis (chest pain, altered mental status, abdominal pain women, abdominal pain men, vaginal bleeding, weakness, fever, dyspnea, syncope, headache, dizziness, GI bleed, back pain, seizure, CVA, palpatations, mental health, musculoskeletal)? @Differential Dyspnea: Coronary syndrome, arrhythmia, tamponade, asthma, COPD, pulmonary embolism, pneumonia, pneumothorax, pulmonary effusion, anaphylaxis, diabetic ketoacidosis, flailed chest, pulmonary contusion, diaphragmatic rupture, anemia, neuromuscular, this is not meant to be an all-inclusive list. EKG interpreted by me (3pts min.). @ -Completed at 1114 sinus bradycardia with a ventricular rate of 50, DE interval 178, QRS 86, QT 428, QTc 4 3. There is no sinus arrhythmia with T wave inversions in leads V4, V5, V6. X-rays interpreted by me (1pt min.). @ -None done CT interpreted by me (1pt min.). @ -None done U/S interpreted by me (1pt. min.). @ -None done What testing was considered but not performed or refused? (CT, X-rays, U/S, labs)? Why? @ -None What meds were considered but not given or refused? Why? @ -None Did you discuss the management of the patient with other professionals (professionals i.e. , PA, CORPORATE INTERN, lab, RT, psych nurse, social studies teacher, return agent airport, teacher, hydrographical technical officer, top case assembler)? Give summary @ -No Was smoking cessation discussed for >3mins.? @ -No Was critical care preformed (if so, how long)? @ -No Were there social determinants of health that impacted care today? How? (Homelessness, low income, unemployed, alcoholism, drug addiction, transportation, low edu. Level, literacy, decrease access to med. care, snf, rehab)? @ -No Was there de-escalation of care discussed even if they declined (Discuss DNR or withdrawal of care, Hospice)? DNR status @ -No What co-morbidities impacted this encounter? (DM, HTN, Smoking, COPD, CAD, Cancer, CVA, ARF, Chemo, Hep., AIDS, mental health diagnosis, sleep apnea, morbid obesity)? @ -None Was patient admitted / discharged? Hospital course, mention meds given and route, prescriptions, significant lab abnormalities, going to OR and other pertinent info. @ -Discharge. 83-year-old male presenting to emergency department with complaints of dyspnea and dysphagia. Patient is bradycardic with a sinus rhythm. Overall he is well-appearing in no signs of respiratory distress. Oxygen saturation is at 97% on room air. There is no soft palate edema on oropharynx examination. Patient's laboratory testing is unremarkable aside from chronic kidney disease with a creatinine of 1.81, GFR of 34 and BUN of 30. Patient CT is completed without contrast revealing no acute process within the soft tissues of the neck. Urinalysis no signs of infection. I personally observe the patient tolerating oral intake with a sandwich and water with no signs of distress. Patient is discharged and recommend follow-up with primary care provider. case discussed with Dr. Canales Undiagnosed new problem with uncertain prognosis? @ -No Drug Therapy requiring intensive monitoring for toxicity (Heparin, Nitro, Insulin, Cardizem)? @ -No Were any procedures done? @ -No Diagnosis/symptom? @ -Dysphagia Acute, or Chronic, or Acute on Chronic? @ -Acute Uncomplicated (without systemic symptoms) or Complicated (systemic symptoms)? @ -Uncomplicated Side effects of treatment? @ -No Exacerbation, Progression, or Severe Exacerbation? @ -No Poses a threat to life or bodily function? How? (Chest pain, [place], NH, pneumonia, PE, COPD, DKA, ARF, appy, cholecystitis, CVA, Diverticulitis, Homicidal, Suicidal, threat to staff... and all critical care pts) @ -No - Lab Data Result diagrams: 07/30/24 11:38 07/30/24 11:38 Lab Results 07/30/24 07/30/24 07/30/24 Range/Units 11:38 11:38 11:38 WBC 6.11 (4.50-10.00) 10*3/uL RBC 4.12 L (4.40-5.60) 10*6/uL Hgb 13.1 (13.0-17.0) g/dL Hct 39.1 L (39.6-50.0) % MCV 94.9 (80.0-97.0) fL MCH 31.8 (27.0-32.0) pg MCHC 33.5 (32.0-37.0) g/dL Plt Count 183 (140-440) 10*3/uL MPV 9.3 L (9.5-12.2) fL Immature Gran % (Auto) 0.7 % Neutrophils % 61.5 % Lymphocytes % 26.8 % Monocytes % 8.5 % Eosinophils % 2.0 % Basophils % 0.5 % Immature Gran # 0.04 (0.00-0.04) 10*3/uL Neutrophils # 3.76 (1.80-7.70) 10*3/uL Lymphocytes # 1.64 (0.90-5.00) 10*3/uL Monocytes # 0.52 (0.20-1.00) 10*3/uL Eosinophils # 0.12 (0.04-0.35) 10*3/uL Basophils # 0.03 (0.00-0.10) 10*3/uL PT 10.8 (10.0-12.5) sec INR 1.0 (<1.2) APTT 22.8 (22.0-30.0) sec Sodium (137-145) mmol/L Potassium (3.5-5.1) mmol/L Chloride (98-107) mmol/L Carbon Dioxide (22-30) mmol/L Anion Gap mmol/L BUN (9-20) mg/dL Creatinine (0.66-1.25) mg/dL Est GFR (CKD-EPI)AfAm (>60 ml/min/1.73 sqM) Est GFR (CKD-EPI)NonAf (>60 ml/min/1.73 sqM) Glucose (74-99) mg/dL Calcium (8.4-10.2) mg/dL Magnesium (1.6-2.3) mg/dL Total Bilirubin (0.2-1.3) mg/dL AST (17-59) U/L ALT (4-49) U/L Alkaline Phosphatase (38-126) U/L Troponin I (0.000-0.034) ng/mL Total Protein (6.3-8.2) g/dL Albumin (3.5-5.0) g/dL TSH (0.465-4.680) mIU/L Urine Color Light Yellow Urine Appearance Clear (Clear) Urine pH 6.0 (5.0-8.0) Ur Specific [place] 1.021 (1.001-1.035) Urine Protein 1+ H (Negative) Urine Glucose (UA) Negative (Negative) Urine Ketones Negative (Negative) Urine Blood Negative (Negative) Urine Nitrite Negative (Negative) Urine Bilirubin Negative (Negative) Urine Urobilinogen <2.0 (<2.0) mg/dL Ur Leukocyte Esterase Negative (Negative) Urine RBC <1 (0-5) /hpf Urine WBC 1 (0-5) /hpf Ur Squamous Epith Cells <1 (0-4) /hpf Hyaline Casts 24 H (0-2) /lpf Urine Mucus Rare H (None) /hpf 07/30/24 07/30/24 Range/Units 11:38 11:38 WBC (4.50-10.00) 10*3/uL RBC (4.40-5.60) 10*6/uL Hgb (13.0-17.0) g/dL Hct (39.6-50.0) % MCV (80.0-97.0) fL MCH (27.0-32.0) pg MCHC (32.0-37.0) g/dL Plt Count (140-440) 10*3/uL MPV (9.5-12.2) fL Immature Gran % (Auto) % Neutrophils % % Lymphocytes % % Monocytes % % Eosinophils % % Basophils % % Immature Gran # (0.00-0.04) 10*3/uL Neutrophils # (1.80-7.70) 10*3/uL Lymphocytes # (0.90-5.00) 10*3/uL Monocytes # (0.20-1.00) 10*3/uL Eosinophils # (0.04-0.35) 10*3/uL Basophils # (0.00-0.10) 10*3/uL PT (10.0-12.5) sec INR (<1.2) APTT (22.0-30.0) sec Sodium 139 (137-145) mmol/L Potassium 4.1 (3.5-5.1) mmol/L Chloride 106 (98-107) mmol/L Carbon Dioxide 23 (22-30) mmol/L Anion Gap 10 mmol/L BUN 30 H (9-20) mg/dL Creatinine 1.81 H (0.66-1.25) mg/dL Est GFR (CKD-EPI)AfAm 39 (>60 ml/min/1.73 sqM) Est GFR (CKD-EPI)NonAf 34 (>60 ml/min/1.73 sqM) Glucose 74 (74-99) mg/dL Calcium 9.6 (8.4-10.2) mg/dL Magnesium 2.0 (1.6-2.3) mg/dL Total Bilirubin 0.7 (0.2-1.3) mg/dL AST 25 (17-59) U/L ALT 17 (4-49) U/L Alkaline Phosphatase 45 (38-126) U/L Troponin I <0.012 (0.000-0.034) ng/mL Total Protein 6.3 (6.3-8.2) g/dL Albumin 3.8 (3.5-5.0) g/dL TSH 1.350 (0.465-4.680) mIU/L Urine Color Urine Appearance (Clear) Urine pH (5.0-8.0) Ur Specific [place] (1.001-1.035) Urine Protein (Negative) Urine Glucose (UA) (Negative) Urine Ketones (Negative) Urine Blood (Negative) Urine Nitrite (Negative) Urine Bilirubin (Negative) Urine Urobilinogen (<2.0) mg/dL Ur Leukocyte Esterase (Negative) Urine RBC (0-5) /hpf Urine WBC (0-5) /hpf Ur Squamous Epith Cells (0-4) /hpf Hyaline Casts (0-2) /lpf Urine Mucus (None) /hpf Disposition Clinical Impression: Dysphagia Disposition: HOME SELF-CARE Condition: Stable Instructions (If sedation given, give patient instructions): Dysphagia (ED) Additional Instructions: Please return to the Emergency Department if symptoms worsen or any other concerns. Follow-up with your primary care provider in 1 to 3 days. Is patient prescribed a controlled substance at d/c from ED?: No Referrals: Tatum Hardy MD [Primary Care Provider] - 1-2 days Time of Disposition: 13:37
[2024-07-30 11:54] LABS: Basophils # (A) 0.03 10*3/uL (0.00-0.10); Basophils % (A) 0.5 %; Eosinophils # (A) 0.12 10*3/uL (0.04-0.35); HCT 39.1 % (39.6-50.0); HGB 13.1 g/dL (13.0-17.0); Lymphocytes # (A) 1.64 10*3/uL (0.90-5.00); Lymphocytes % (A) 26.8 %; MCH 31.8 pg (27.0-32.0); MCHC 33.5 g/dL (32.0-37.0); MCV 94.9 fL (80.0-97.0); Mean Platelet Volume 9.3 fL (9.5-12.2); Monocytes # (A) 0.52 10*3/uL (0.20-1.00); Monocytes % (A) 8.5 %; Neutrophils # (A) 3.76 10*3/uL (1.80-7.70); Neutrophils % (A) 61.5 %; Platelet Count 183 10*3/uL (140-440); RBC 4.12 10*6/uL (4.40-5.60); RDW 13.2 % (11.5-14.5); WBC 6.11 10*3/uL (4.50-10.00)
[2024-07-30 11:57] LABS: Appearance,Urine Clear (Clear); Bilirubin,Urine Negative (Negative); Blood,Urine Negative (Negative); Color,Urine Light Yellow; Glucose,Urine (UA) Negative (Negative); Hyaline Casts,Urine 24 /lpf (0-2); Ketones,Urine Negative (Negative); Leukocyte Esterase,Urine Negative (Negative); Mucus,Urine Rare /hpf; Nitrite,Urine Negative (Negative); Protein,Urine 1+ (Negative); RBC,Urine <1 /hpf (0-5); Specific Gravity,Urine 1.021 (1.001-1.035); Squamous Epithelial Cell,Urine <1 /hpf (0-4); Urobilinogen,Urine <2.0 mg/dL (<2.0); WBC,Urine 1 /hpf (0-5)
[2024-07-30 12:00] LABS: ALT 17 U/L (4-49); AST 25 U/L (17-59); African American GFR (CKD) 39 (>60 ml/min/1.73 sqM); Albumin 3.8 g/dL (3.5-5.0); Alkaline Phosphatase 45 U/L (38-126); Anion Gap 10 mmol/L; Blood Urea Nitrogen 30 mg/dL (9-20); Calcium 9.6 mg/dL (8.4-10.2); Carbon Dioxide 23 mmol/L (22-30); Chloride 106 mmol/L (98-107); Glucose 74 mg/dL (74-99); Non-African American GFR(CKD) 34 (>60 ml/min/1.73 sqM); Potassium 4.1 mmol/L (3.5-5.1); Sodium 139 mmol/L (137-145); Total Bilirubin 0.7 mg/dL (0.2-1.3); Total Protein 6.3 g/dL (6.3-8.2)
[2024-07-30 12:06] LABS: Partial Thromboplastin Time 22.8 sec (22.0-30.0); Prothrombin Time 10.8 sec (10.0-12.5)
--- NOTE | 2024-07-30 13:08 | CT ---
EXAMINATION TYPE: CT soft tissue neck wo con CT DLP: 317.7 mGycm, Automated exposure control for dose reduction was used. DATE OF EXAM: 07/30/2024 12:55 PM COMPARISON: CT soft tissue neck 11/11/2022. CLINICAL INDICATION:Male, 83 years old with history of dysphagia; PHH, Dysphagia TECHNIQUE: Standard CT of the neck without the administration of intravenous contrast. This limits ev aluation. Axial sections with coronal and sagittal reformats were obtained. FINDINGS: Brain: Visualized portions are grossly unremarkable. Orbits: Unremarkable Sinuses: Couple of right inferior maxillary sinus mucous retention cysts with the largest measuring u p to 1.5 cm. Suprahyoid Neck: The oropharynx, oral cavity, parapharyngeal and retropharyngeal spaces are clear and symmetric. The nasopharynx is unremarkable. Infrahyoid Neck: The larynx, hypopharynx, and supraglottic area are clear and symmetric. Parotid Glands: Unremarkable. Submandibular Glands: Unremarkable. Musculoskeletal: No acute osseous pathology. Left AC joint arthropathy. No aggressive osseous lesion. Multilevel degenerative disc disease of the cervical spine. Lymph nodes: No pathologically enlarged lymph nodes greater than 1 cm short axis identified. Vascular structures: Mild atherosclerotic calcifications of the internal carotid arteries. Thoracic Inlet/airway: Airway is patent. The lung apices are clear. Soft tissues/Thyroid: Thyroid and remainder of the soft tissues are unremarkable. Other: none. IMPRESSION: No significant abnormality to account for patient's symptoms within the limitations of a noncontrast exam. [facility], , 07/30/2024 1:06 PM
[2024-07-30 19:03] VITALS: BP 156/75; PULSE 60; RESP 20
== END 2024-07-30 14:10 | disposition home or self-care (01) ==
LOC: EC 10:02
DX: R13.10 Dysphagia, unspecified (principal); R00.1 Bradycardia, unspecified; Z91.030 Bee allergy status; Z87.891 Personal history of nicotine dependence
CPT/HCPCS: 36415; 70490; 80053; 81001; 83735; 84443; 84484; 85025; 85610; 85730; 93005; 99285

== ENCOUNTER 2024-09-02 09:11 | Emergency (ER) | payer MEDICARE ==
[2024-09-02 09:17] VITALS: TEMP 97.9
[2024-09-02 11:07] LABS: Basophils # (A) 0.06 10*3/uL (0.00-0.10); Basophils % (A) 0.9 %; Eosinophils # (A) 0.11 10*3/uL (0.04-0.35); Eosinophils % (A) 1.7 %; HCT 39.2 % (39.6-50.0); HGB 13.5 g/dL (13.0-17.0); Lymphocytes # (A) 1.82 10*3/uL (0.90-5.00); Lymphocytes % (A) 27.5 %; MCH 32.1 pg (27.0-32.0); MCHC 34.4 g/dL (32.0-37.0); MCV 93.3 fL (80.0-97.0); Mean Platelet Volume 8.9 fL (9.5-12.2); Monocytes # (A) 0.55 10*3/uL (0.20-1.00); Monocytes % (A) 8.3 %; Neutrophils # (A) 4.01 10*3/uL (1.80-7.70); Neutrophils % (A) 60.4 %; Platelet Count 252 10*3/uL (140-440); RDW 13.2 % (11.5-14.5); WBC 6.63 10*3/uL (4.50-10.00)
[2024-09-02 11:22] LABS: ALT 16 U/L (4-49); AST 25 U/L (17-59); African American GFR (CKD) 38 (>60 ml/min/1.73 sqM); Albumin 4.1 g/dL (3.5-5.0); Alkaline Phosphatase 51 U/L (38-126); Anion Gap 10 mmol/L; Blood Urea Nitrogen 40 mg/dL (9-20); Calcium 9.6 mg/dL (8.4-10.2); Carbon Dioxide 22 mmol/L (22-30); Chloride 107 mmol/L (98-107); Glucose 117 mg/dL (74-99); Non-African American GFR(CKD) 33 (>60 ml/min/1.73 sqM); Potassium 4.6 mmol/L (3.5-5.1); Sodium 139 mmol/L (137-145); Total Bilirubin 0.5 mg/dL (0.2-1.3); Total Protein 6.7 g/dL (6.3-8.2)
[2024-09-02] MEDS: SODIUM CHLORIDE 0.9% 1,000 ML IV ONE (12:37)
--- NOTE | 2024-09-02 12:48 | CT ---
EXAMINATION TYPE: CT ChestAbdPelvis w con DATE OF EXAM: 09/02/2024 12:35 PM COMPARISON: 12/22/2023. CLINICAL INDICATION: Male, 83 years old with history of hx bladder cancer, worsening abd pain, dyspha cody; PHH, abd pain bladder ca Technique: CT ChestAbdPelvis w con; Multiple axial images were obtained. Two-dimensional coronal and sagittal reconstructions were obtained. Contrast used:80 mL of Isovue 300 with IV Contrast, (None if empty) Oral contrast used: without Oral Contrast CT DLP: 1017.8 mGycm, Automated exposure control for dose reduction was used. Findings: CHEST: LUNGS/ PLEURA: No focal consolidation, pneumothorax or pleural effusion. Calcification is along the p leura of the posterior left lung and right anterior lung as well as the lateral left lung. AIRWAY: Patent and unremarkable. HEART: Cardiomegaly is demonstrated. Severe coronary artery calcifications present. MEDIASTINUM: No gross evidence of adenopathy. Esophagus is without evidence of wall thickening or dil ation. VASCULATURE: No aortic aneurysm. MUSCULOSKELETAL: No acute osseous abnormalities. SOFT TISSUES/LYMPH NODES: Unremarkable. LOWER NECK: No significant findings. ABDOMEN: ABDOMEN LIVER: Unremarkable GALLBLADDER AND BILE DUCTS: Unremarkable. PANCREAS: Unremarkable. SPLEEN: Unremarkable. ADRENAL GLANDS: Unremarkable. KIDNEYS AND URETERS: No evidence of hydronephrosis or obstructing renal calculus. The ureters are unr emarkable. Simple appearing right renal cortical cysts measuring up to 43 mm. Mild follow-up recom mended. The left kidney is not visualized and may be surgically our congenitally absent. PELVIS BLADDER: Within the limitations exam no evidence for bilateral masses. REPRODUCTIVE: Prostate is enlarged in size measuring 5.4 cm in transverse dimension. ABDOMEN & PELVIS STOMACH AND BOWEL: No evidence of bowel obstruction. Few scattered colonic diverticula. The appendix is normal. PERITONEUM/RETROPERITONEUM: No evidence of pneumoperitoneum or free fluid. VASCULATURE: Mild atherosclerotic calcifications are present throughout the abdominal aorta and its b ranches. No evidence of aortic aneurysm. MUSCULOSKELETAL: No acute osseous abnormalities. Mild disc degeneration changes are present throughou t the thoracolumbar spine. Mild degeneration changes as it joint space narrowing and osteophyte forma tion. Scattered Schmorl's nodes most pronounced at the inferior endplate of L1. Stable possible Schmo rl's nodes inferior endplate of L4. LYMPH NODES: No gross evidence for lymphadenopathy. SOFT TISSUE/ABDOMINAL WALL: Bilateral fat-containing inguinal hernias. IMPRESSION: 1. Visualized portions of the neck in the esophagus consider no evidence for wall thickening or mass . No evidence for lymphadenopathy or mass. No evidence for bladder wall mass. 2. No evidence for acute thoracic or abdominal process. 3. Scattered colonic diverticula. 4. Bilateral fat-containing inguinal hernias. 5. Congenitally or surgically absent left kidney. Flat morphology to the left adrenal gland favors c ongenital. 6. Prostatomegaly correlate with serum PSA 7. Simple appearing right renal cortical cysts no follow-up recommended. 8. Normal appendix. 9. Scattered Pleural calcifications correlate for asbestos exposure. [facility], , 09/02/2024 12:46 PM
--- NOTE | 2024-09-02 13:11 | ED ---
General Adult HPI - General Chief complaint: Recheck/Abnormal Lab/Rx Stated complaint: trouble swallowing, LALO Time Seen by Provider: 09/02/24 09:27 Source: patient Mode of arrival: ambulatory Limitations: no limitations - History of Present Illness Initial comments: 83-year-old male presents to the emergency department with difficulty swallowing. This is a chronic issue for the patient. Patient had an EGD in March with biopsies which were normal. 1 month ago he had a CT of his neck which demonstrated no acute issue. Patient presents today requesting "a cancer scan". He states that he has bladder cancer and he feels that it has "gone through his whole body". He feels as if this is the reason why he cannot swallow. No report of any tongue or facial swelling. He denies any painful swallowing. No difficulty breathing. He denies abdominal pain. Patient had surgery to remove his bladder cancer but has not had follow-up with oncology after being discharged from the hospital when he had cancer in 2021. No report of any fevers. No other alleviating, precipitating or modifying factors - Related Data Home Medications Medication Instructions Recorded Confirmed ALPRAZolam [Xanax] 0.5 mg PO BID 06/13/21 09/02/24 glipiZIDE [Glucotrol] 5 mg PO BID 06/13/21 09/02/24 Ergocalciferol (Vitamin D2) 1,250 mcg PO FR 09/29/23 09/02/24 [Drisdol (50,000 Iu)] HYDROcodone/APAP 7.5-325MG [[place] 1 tab PO TID 09/29/23 09/02/24 7.5-325] carvediloL [Coreg] 6.25 mg PO BID 03/29/24 09/02/24 Omeprazole 20 mg PO AC-BRKFST 06/07/24 09/02/24 Previous Rx's Medication Instructions Recorded Omeprazole [PriLOSEC] 40 mg PO DAILY #90 cap 09/02/24 Allergies Allergy/AdvReac Type Severity Reaction Status Date / Time bee venom protein (honey bee) Allergy Anaphylaxis Verified 09/02/24 10:36 Review of Systems ROS Statement: Those systems with pertinent positive or pertinent negative responses have been documented in the HPI. ROS Other: All systems not noted in ROS Statement are negative. Past Medical History Past Medical History: Cancer, Diabetes Mellitus, Hypertension, Osteoarthritis (OA) Additional Past Medical History / Comment(s): stress test done one month ago, bladder cancer diagnosed 02/2021 History of Any Multi-Drug Resistant Organisms: None Reported Past Surgical History: Bladder Surgery Additional Past Surgical History / Comment(s): tumors removed from bladder, colonoscopy, EGD , kidney only has one since Past Anesthesia/Blood Transfusion Reactions: No Reported Reaction Additional Past Anesthesia/Blood Transfusion Reaction / Comment(s): no blood transfusion Past Psychological History: Anxiety Smoking Status: Former smoker Past Alcohol Use History: Occasional Past Drug Use History: None Reported - Past Family History Mother Family Medical History: Cancer Additional Family Medical History / Comment(s): jaw cancer Father History Unknown: Yes General Exam Limitations: no limitations General appearance: alert, in no apparent distress Head exam: Present: atraumatic, normocephalic, normal inspection Eye exam: Present: normal appearance, PERRL, EOMI. Absent: scleral icterus, conjunctival injection, periorbital swelling ENT exam: Present: normal exam, mucous membranes moist Neck exam: Present: normal inspection. Absent: tenderness, meningismus, lymphadenopathy Respiratory exam: Present: normal lung sounds bilaterally. Absent: respiratory distress, wheezes, rales, rhonchi, stridor Cardiovascular Exam: Present: regular rate, normal rhythm, normal heart sounds. Absent: systolic murmur, diastolic murmur, rubs, gallop, clicks GI/Abdominal exam: Present: soft, normal bowel sounds. Absent: distended, tenderness, guarding, rebound, rigid Extremities exam: Present: normal inspection, full ROM, normal capillary refill. Absent: tenderness, pedal edema, joint swelling, calf tenderness Back exam: Present: normal inspection Neurological exam: Present: alert, oriented X3, CN II-XII intact Psychiatric exam: Present: normal affect, normal mood Skin exam: Present: warm, dry, intact, normal color. Absent: rash Course Vital Signs 09/02/24 09/02/24 09:15 14:20 Temperature 97.9 F Pulse Rate 59 L 78 Respiratory 20 17 Rate Blood Pressure 182/91 123/67 O2 Sat by Pulse 98 97 Oximetry Medical Decision Making - Medical Decision Making Was pt. sent in by a medical professional or institution (, PA, ADMINISTRATIVE RESIDENT, urgent care, hospital, or jail...) When possible be specific @ -No Did you speak to anyone other than the patient for history (EMS, parent, family, police, friend...)? What history was obtained from this source @ -No Did you review nursing and triage notes (agree or disagree)? Why? @ -I reviewed and agree with nursing and triage notes Were old charts reviewed (outside hosp., previous admission, EMS record, old EKG, old radiological studies, urgent care reports/EKG's, jail records)? Report findings @ -Reviewed the CT scan with from month ago which demonstrated no acute process Differential Diagnosis (chest pain, altered mental status, abdominal pain women, abdominal pain men, vaginal bleeding, weakness, fever, dyspnea, syncope, headache, dizziness, GI bleed, back pain, seizure, CVA, palpatations, mental health, musculoskeletal)? @ -Foreign body, allergic reaction, esophageal stricture EKG interpreted by me (3pts min.). @ -Not on X-rays interpreted by me (1pt min.). @ -None done CT interpreted by me (1pt min.). @ -None done U/S interpreted by me (1pt. min.). @ -None done What testing was considered but not performed or refused? (CT, X-rays, U/S, labs)? Why? @ -None What meds were considered but not given or refused? Why? @ -None Did you discuss the management of the patient with other professionals (professionals i.e. , PA, ADMINISTRATIVE RESIDENT, lab, RT, psych nurse, social media assistant, machine printer, teacher, chief data officer, pillowcase folder)? Give summary @ -No Was smoking cessation discussed for >3mins.? @ -No Was critical care preformed (if so, how long)? @ -No Were there social determinants of health that impacted care today? How? (Homelessness, low income, unemployed, alcoholism, drug addiction, t ransportation, low edu. Level, literacy, decrease access to med. care, long term, rehab)? @ -No Was there de-escalation of care discussed even if they declined (Discuss DNR or withdrawal of care, Hospice)? DNR status @ -No What co-morbidities impacted this encounter? (DM, HTN, Smoking, COPD, CAD, Cance r, CVA, ARF, Chemo, Hep., AIDS, mental health diagnosis, sleep apnea, morbid obesity)? @ -Bladder cancer Was patient admitted / discharged? Hospital course, mention meds given and route, prescriptions, significant lab abnormalities, going to OR and other pertinent info. @ -Upon arrival patient seen and evaluated in bed 25. Thorough history and physical exam was performed. Patient adamant that his dysphagia is due to progressed cancer. Patient has barreto kidney but requesting CT scan with contrast. I informed him that the recommended option would be a PET scan however this is not available today and patient is not satisfied leaving without workup. Laboratory studies are conducted. CT is performed. No acute process identified. This is discussed with the patient. I did call over to Dr. Harvey office and made an appointment for the patient. Patient will follow-up with him for further surveillance. Patient is able to eat a sandwich and bag of chips while he is in the emergency department. He is instructed to return for any new or worsening symptoms. Patient discharged in stable condition Undiagnosed new problem with uncertain prognosis? @ -No Drug Therapy requiring intensive monitoring for toxicity (Heparin, Nitro, Insulin, Cardizem)? @ -No Were any procedures done? @ -No Diagnosis/symptom? @ -Chronic dysphagia Acute, or Chronic, or Acute on Chronic? @ -Chronic Uncomplicated (without systemic symptoms) or Complicated (systemic symptoms)? @ -Complicated Side effects of treatment? @ -No Exacerbation, Progression, or Severe Exacerbation? @ -No Poses a threat to life or bodily function? How? (Chest pain, USA, IA, pneumonia, PE, COPD, DKA, ARF, appy, cholecystitis, CVA, Diverticulitis, Homicidal, Suicidal, threat to staff... and all critical care pts) @ -No - Lab Data Result diagrams: 09/02/24 10:34 09/02/24 10:34 Lab Results 09/02/24 09/02/24 Range/Units 10:34 10:34 WBC 6.63 (4.50-10.00) 10*3/uL RBC 4.20 L (4.40-5.60) 10*6/uL Hgb 13.5 (13.0-17.0) g/dL Hct 39.2 L (39.6-50.0) % MCV 93.3 (80.0-97.0) fL MCH 32.1 H (27.0-32.0) pg MCHC 34.4 (32.0-37.0) g/dL Plt Count 252 (140-440) 10*3/uL MPV 8.9 L (9.5-12.2) fL Immature Gran % (Auto) 1.2 % Neutrophils % 60.4 % Lymphocytes % 27.5 % Monocytes % 8.3 % Eosinophils % 1.7 % Basophils % 0.9 % Immature Gran # 0.08 H (0.00-0.04) 10*3/uL Neutrophils # 4.01 (1.80-7.70) 10*3/uL Lymphocytes # 1.82 (0.90-5.00) 10*3/uL Monocytes # 0.55 (0.20-1.00) 10*3/uL Eosinophils # 0.11 (0.04-0.35) 10*3/uL Basophils # 0.06 (0.00-0.10) 10*3/uL Sodium 139 (137-145) mmol/L Potassium 4.6 (3.5-5.1) mmol/L Chloride 107 (98-107) mmol/L Carbon Dioxide 22 (22-30) mmol/L Anion Gap 10 mmol/L BUN 40 H (9-20) mg/dL Creatinine 1.86 H (0.66-1.25) mg/dL Est GFR (CKD-EPI)AfAm 38 (>60 ml/min/1.73 sqM) Est GFR (CKD-EPI)NonAf 33 (>60 ml/min/1.73 sqM) Glucose 117 H (74-99) mg/dL Calcium 9.6 (8.4-10.2) mg/dL Total Bilirubin 0.5 (0.2-1.3) mg/dL AST 25 (17-59) U/L ALT 16 (4-49) U/L Alkaline Phosphatase 51 (38-126) U/L Total Protein 6.7 (6.3-8.2) g/dL Albumin 4.1 (3.5-5.0) g/dL Disposition Clinical Impression: Dysphagia, Bladder cancer Disposition: HOME SELF-CARE Condition: Stable Instructions (If sedation given, give patient instructions): Chronic Dysphagia (DC) Additional Instructions: Your appointment with Dr. Quiles has been scheduled for October 14 at 3 PM. You will receive an information packet from the office that you need to fill out and bring to your first appointment. I have called your prescriptions into the pharmacy -the medication that was prescribed by Dr. Hughes has been doubled. If your symptoms persist, you may need to be referred down to [facility] for further testing of your esophageal pressures. Return for any new or worsening symptoms Prescriptions: Omeprazole [PriLOSEC] 40 mg PO DAILY #90 cap Is patient prescribed a controlled substance at d/c from ED?: No Referrals: Tatum Hardy MD [Primary Care Provider] - 1-2 days Luis Daniel Quiles MD [STAFF PHYSICIAN] - 1-2 days Time of Disposition: 13:45
[2024-09-02 14:21] VITALS: BP 123/67; PULSE 78; RESP 17
== END 2024-09-02 14:21 | disposition home or self-care (01) ==
LOC: EC 09:11
DX: R13.10 Dysphagia, unspecified (principal); C67.9 Malignant neoplasm of bladder, unspecified; Z91.030 Bee allergy status; Z87.891 Personal history of nicotine dependence
CPT/HCPCS: 36415; 80053; 85025; 71260; 74177; 99285; 96360; Q9967